=== PATIENT | female | born 1960 | race African-American/Black ===

== ENCOUNTER 2017-11-26 15:19 | Inpatient (IN) | payer MEDICARE, MEDICAID ==
[~2017-11-26] VITALS: Ht 160 cm; Wt 57.2 kg
[~2017-11-26 15:19] MED LIST: ALTACE; FOLIC ACID; HYDROXYUREA; VIT B12; [UNRECOGNIZED DRUG - OTHER]; [UNRECOGNIZED DRUG - OTHER]
[2017-11-26] MEDS ORDERED: ONDANSETRON HCL 4MG/2ML VIAL IV STA (15:59)
[2017-11-26] MEDS ORDERED: SODIUM CHLORIDE 0.9% 1,000 ML IV ONE (15:59)
[2017-11-26] MEDS ORDERED: MORPHINE SULFATE 4 MG/ML CPJ (NOT FOR IM USE) IV STA (15:59)
[2017-11-26] MEDS ORDERED: METOPROLOL TARTRATE 5MG/5ML VIAL IV ONE ×2 (16:45→17:30)
[2017-11-26] MEDS ORDERED: MIDAZOLAM HCL 2 MG/2 ML VIAL IV ONE (17:00)
[2017-11-26 17:09] LABS: CHLORIDE 107 mEq/L (98-107)
[2017-11-26 17:10] LABS: INR 1.2; PROTHROMBIN TIME 12.1 sec (9.4-11.6)
[2017-11-26 17:17] LABS: CREATINE KINASE 82 IU/L (26-192)
[2017-11-26 17:19] LABS: CREATINE KINASE MB FRACTION 0.6 ng/mL (0.5-3.6)
[2017-11-26 17:22] LABS: HEMATOCRIT. 21.6 % (36.0-48.0); HEMOGLOBIN. 7.6 g/dL (12.0-16.0); MEAN CORPUSCULAR HEMOGLOBIN 36.2 pg (28.0-32.0); MEAN PLATELET VOLUME 7.6 fl (7.4-10.4); PLATELET 252 x1000/uL (130-400); RED CELL DISTRIBUTION WIDTH 23.1 % (11.6-14.6)
[2017-11-26] MEDS ORDERED: METOPROLOL TARTRATE 50MG TABLET PO ONE (17:30)
[2017-11-26 17:44] LABS: NUCLEATED RED BLOOD CELLS 18 /100 WBC; PLATELET ESTIMATE NORMAL
[2017-11-26] MEDS ORDERED: FUROSEMIDE 40MG/4ML VIAL IVP ONE (18:00)
[2017-11-26] MEDS ORDERED: SODIUM CHLORIDE 0.9% 1,000 ML IV SCH (18:21)
[2017-11-26] MEDS ORDERED: MORPHINE SULFATE 2 MG/ML CPJ (NOT FOR IM USE) IV PRN ×2 (18:30→19:00)
[2017-11-26 19:42] LABS: VITAMIN B12 SERUM 885 pg/mL (211-911)
[2017-11-26 19:43] LABS: FOLIC ACID (FOLATE) SERUM > 20.00 ng/mL (>5.38)
[2017-11-26] MEDS: MORPHINE SULFATE 4 MG/ML CPJ (NOT FOR IM USE) IV PRN ×2 (21:07→23:54)
[2017-11-26 23:34] LABS: CREATINE KINASE MB FRACTION 0.6 ng/mL (0.5-3.6)
[2017-11-27] VITALS (15 sets, daily range): BP systolic 123–156; BP diastolic 60–98
[2017-11-27] MEDS ORDERED: NITROGLYCERIN 0.4MG TABLET SL SL PRN (00:14)
[2017-11-27] MEDS ORDERED: ZOLPIDEM TARTRATE 5MG TABLET PO PRN (00:23)
[2017-11-27] MEDS ORDERED: ONDANSETRON HCL 4MG/2ML VIAL IV PRN (00:24)
[2017-11-27] MEDS ORDERED: ACETAMINOPHEN 325MG TABLET PO PRN (00:24)
[2017-11-27] MEDS ORDERED: IPRATROPIUM/ALBUTEROL 0.5-3(2.5)MG/3ML NEB INH PRN (00:25)
[2017-11-27] MEDS ORDERED: LORAZEPAM 0.5MG TABLET PO PRN (00:25)
[2017-11-27] MEDS ORDERED: DIPHENHYDRAMINE 50MG/ML VIAL IV PRN (00:25)
[2017-11-27] MEDS ORDERED: NA PHOS,M-B/NA PHOS,DI-BA ENEMA 118ML PR PRN (00:25)
[2017-11-27] MEDS ORDERED: GUAIFENESIN 200MG/10ML SUGAR FREE UDC PO PRN (00:25)
[2017-11-27] MEDS: DILTIAZEM HCL 60MG TABLET PO SCH ×5 (00:54→23:34)
[2017-11-27] MEDS: ENOXAPARIN 60MG/0.6ML SYR SUBCUT SCH ×2 (00:55→12:48)
[2017-11-27] MEDS: MORPHINE SULFATE 4 MG/ML CPJ (NOT FOR IM USE) IV PRN ×8 (03:51→23:34)
[2017-11-27] MEDS ORDERED: RAMI10CA19 PO (04:03)
[2017-11-27] MEDS ORDERED: APIX5TAB PO (04:03)
[2017-11-27] MEDS ORDERED: [UNRECOGNIZED DRUG - OTHER] (04:03)
[2017-11-27] MEDS ORDERED: FOLI-43 PO (04:03)
[2017-11-27] MEDS ORDERED: FERR325T6 PO (04:03)
[2017-11-27] MEDS ORDERED: HYDR4TAB4 PO (04:03)
[2017-11-27] MEDS ORDERED: METO25TA6 PO (04:03)
[2017-11-27] MEDS: TRAMADOL 50MG TABLET PO PRN (07:08)
[2017-11-27 08:05] LABS: CREATINE KINASE MB FRACTION 0.9 ng/mL (0.5-3.6)
[2017-11-27] MEDS: PANTOPRAZOLE SODIUM 40 MG/VIAL IV SCH (09:02)
[2017-11-27] MEDS: ASPIRIN 325MG EC TABLET PO SCH (09:03)
[2017-11-27] MEDS: FOLIC ACID/VITAMIN B COMP W-C TABLET PO SCH (09:03)
[2017-11-27] MEDS: METOPROLOL TARTRATE 25MG TABLET PO SCH ×2 (09:04→20:35)
[2017-11-27 10:38] LABS: CLARITY URINE CLEAR (CLEAR); COLOR URINE DARK YELLOW (YELLOW); KETONES URINE NEGATIVE (NEGATIVE); LEUKOCYTE ESTERASE URINE NEGATIVE (NEGATIVE); NITRITE URINE NEGATIVE (NEGATIVE); OCCULT BLOOD URINE 2+ (NEGATIVE); PH URINE 5.5 (4.5-8.0); PROTEIN URINE 2+ (NEGATIVE); SPECIFIC GRAVITY URINE 1.014 (1.005-1.030)
[2017-11-27 11:14] LABS: *AMPHETAMINES SCREEN URINE NEGATIVE (NEGATIVE); *BARBITURATES SCREEN URINE NEGATIVE (NEGATIVE); *BENZODIAZEPINES SCREEN URINE PRESUMTIVE POSITIVE (NEGATIVE); *COCAINE SCREEN URINE NEGATIVE (NEGATIVE); CANNABINOID URINE SCREEN NEGATIVE (NEGATIVE); METHADONE URINE SCREEN NEGATIVE (NEGATIVE); OPIATES URINE SCREEN PRESUMTIVE POSITIVE (NEGATIVE); PHENCYCLIDINE URINE SCREEN NEGATIVE (NEGATIVE)
[2017-11-27 11:16] LABS: TOTAL IRON BINDING CAPACITY 201 ug/dL (250-450)
[2017-11-27] MEDS: LOSARTAN POTASSIUM 25 MG TABLET PO SCH ×2 (11:50→20:35)
[2017-11-27] MEDS: FUROSEMIDE 40MG/4ML VIAL IVP SCH ×2 (11:51→17:15)
[2017-11-27] MEDS: SODIUM CHLORIDE 0.9% 1,000 ML IV SCH (12:44)
[2017-11-27 12:51] LABS: MEAN CORPUSCULAR HEMOGLOBIN 36.9 pg (28.0-32.0); MEAN PLATELET VOLUME 8.1 fl (7.4-10.4); PLATELET 188 x1000/uL (130-400); RED BLOOD CELL COUNT 1.73 mill/uL (4.2-5.4); RED CELL DISTRIBUTION WIDTH 23.2 % (11.6-14.6)
[2017-11-27 13:06] LABS: CHLORIDE 105 mEq/L (98-107)
[2017-11-27 13:08] LABS: HEMATOCRIT. 17.8 % (36.0-48.0); HEMOGLOBIN. 6.4 g/dL (12.0-16.0)
[2017-11-27 14:03] LABS: NUCLEATED RED BLOOD CELLS 21 /100 WBC; PLATELET ESTIMATE NORMAL
[2017-11-28] VITALS (13 sets, daily range): BP systolic 121–160; BP diastolic 66–82
[2017-11-28] MEDS: ENOXAPARIN 60MG/0.6ML SYR SUBCUT SCH ×2 (01:06→12:12)
[2017-11-28] MEDS: MORPHINE SULFATE 4 MG/ML CPJ (NOT FOR IM USE) IV PRN ×6 (03:28→20:29)
[2017-11-28 06:32] LABS: HEMATOCRIT. 23.2 % (36.0-48.0); HEMOGLOBIN. 8.2 g/dL (12.0-16.0); MEAN CORPUSCULAR HEMOGLOBIN 34.8 pg (28.0-32.0); MEAN CORPUSCULAR VOLUME 98.1 fL (81.0-99.0); MEAN PLATELET VOLUME 8.2 fl (7.4-10.4); PLATELET 189 x1000/uL (130-400); RED BLOOD CELL COUNT 2.37 mill/uL (4.2-5.4); RED CELL DISTRIBUTION WIDTH 20.5 % (11.6-14.6)
[2017-11-28] MEDS: DILTIAZEM HCL 60MG TABLET PO SCH ×3 (06:46→18:10)
[2017-11-28 07:06] LABS: CHLORIDE 105 mEq/L (98-107)
[2017-11-28] MEDS: FUROSEMIDE 40MG/4ML VIAL IVP SCH ×2 (07:15→16:48)
[2017-11-28 07:18] LABS: CREATINE KINASE 87 IU/L (26-192); CREATINE KINASE MB FRACTION 0.7 ng/mL (0.5-3.6); LDL CHOLESTEROL 34 mg/dL (5-100)
[2017-11-28 07:20] LABS: HDL CHOLESTEROL 31 mg/dL (40-59)
[2017-11-28] MEDS: SODIUM CHLORIDE 0.9% 1,000 ML IV SCH (08:15)
[2017-11-28] MEDS: PANTOPRAZOLE SODIUM 40 MG/VIAL IV SCH (09:35)
[2017-11-28] MEDS: FOLIC ACID/VITAMIN B COMP W-C TABLET PO SCH (09:35)
[2017-11-28] MEDS: ASPIRIN 325MG EC TABLET PO SCH (09:37)
[2017-11-28] MEDS: LOSARTAN POTASSIUM 25 MG TABLET PO SCH ×2 (09:38→20:29)
[2017-11-28] MEDS: METOPROLOL TARTRATE 25MG TABLET PO SCH ×2 (09:42→20:30)
[2017-11-28 10:27] LABS: NUCLEATED RED BLOOD CELLS 23 /100 WBC; PLATELET ESTIMATE NORMAL
[2017-11-28] MEDS ORDERED: CLONIDINE 0.1MG TABLET PO PRN (15:15)
[2017-11-28] MEDS ORDERED: CLONIDINE 0.2MG TABLET PO PRN (15:15)
[2017-11-28] MEDS: TRAMADOL 50MG TABLET PO PRN (16:05)
[2017-11-29] VITALS (12 sets, daily range): BP systolic 107–149; BP diastolic 62–85
[2017-11-29] MEDS: MORPHINE SULFATE 4 MG/ML CPJ (NOT FOR IM USE) IV PRN ×6 (01:10→22:31)
[2017-11-29] MEDS: DILTIAZEM HCL 60MG TABLET PO SCH ×5 (01:16→23:21)
[2017-11-29] MEDS: ENOXAPARIN 60MG/0.6ML SYR SUBCUT SCH ×2 (01:18→13:40)
[2017-11-29] MEDS: SODIUM CHLORIDE 0.9% 1,000 ML IV SCH ×2 (06:31→23:23)
[2017-11-29 07:46] LABS: CHLORIDE 102 mEq/L (98-107)
[2017-11-29 08:21] LABS: HEMATOCRIT. 22.3 % (36.0-48.0); HEMOGLOBIN. 7.9 g/dL (12.0-16.0); MEAN CORPUSCULAR HEMOGLOBIN 34.5 pg (28.0-32.0); MEAN CORPUSCULAR VOLUME 97.2 fL (81.0-99.0); MEAN PLATELET VOLUME 8.5 fl (7.4-10.4); PLATELET 137 x1000/uL (130-400); RED CELL DISTRIBUTION WIDTH 20.2 % (11.6-14.6)
[2017-11-29] MEDS: FUROSEMIDE 40MG/4ML VIAL IVP SCH ×2 (08:59→17:42)
[2017-11-29] MEDS: FOLIC ACID/VITAMIN B COMP W-C TABLET PO SCH (09:03)
[2017-11-29 09:04] LABS: NUCLEATED RED BLOOD CELLS 18 /100 WBC
[2017-11-29] MEDS: METOPROLOL TARTRATE 25MG TABLET PO SCH ×2 (09:04→20:54)
[2017-11-29] MEDS: ASPIRIN 325MG EC TABLET PO SCH (09:04)
[2017-11-29] MEDS: LOSARTAN POTASSIUM 25 MG TABLET PO SCH ×2 (09:04→20:54)
[2017-11-29] MEDS: FAMOTIDINE 20MG TABLET PO SCH ×2 (09:04→20:53)
[2017-11-29 09:06] LABS: PLATELET ESTIMATE NORMAL
[2017-11-29] MEDS: TRAMADOL 50MG TABLET PO PRN (13:43)
[2017-11-29] MEDS: DOCUSATE SODIUM 100MG CAPSULE PO PRN (17:43)
[2017-11-29] MEDS ORDERED: POTASSIUM CHLORIDE 20MEQ TABLET SR PO NR (22:00)
[2017-11-29] MEDS ORDERED: POTASSIUM CHLORIDE INJ 40 MEQ in SODIUM CHLORIDE 0.9% 250 ML IV NR (23:30)
[2017-11-30] VITALS (12 sets, daily range): BP systolic 102–132; BP diastolic 63–78
[2017-11-30] MEDS: ENOXAPARIN 60MG/0.6ML SYR SUBCUT SCH ×2 (00:03→13:57)
[2017-11-30] MEDS: MORPHINE SULFATE 4 MG/ML CPJ (NOT FOR IM USE) IV PRN ×4 (04:47→20:55)
[2017-11-30] MEDS: DILTIAZEM HCL 60MG TABLET PO SCH ×3 (05:15→18:11)
[2017-11-30] MEDS: FUROSEMIDE 40MG/4ML VIAL IVP SCH (07:15)
[2017-11-30] MEDS: LOSARTAN POTASSIUM 25 MG TABLET PO SCH ×2 (09:00→20:59)
[2017-11-30] MEDS: METOPROLOL TARTRATE 25MG TABLET PO SCH ×2 (09:24→20:55)
[2017-11-30] MEDS: FOLIC ACID/VITAMIN B COMP W-C TABLET PO SCH (09:24)
[2017-11-30] MEDS: ASPIRIN 325MG EC TABLET PO SCH (09:24)
[2017-11-30] MEDS: DOCUSATE SODIUM 100MG CAPSULE PO PRN (09:25)
[2017-11-30] MEDS: FAMOTIDINE 20MG TABLET PO SCH ×2 (09:25→20:55)
[2017-11-30 11:27] LABS: HEMATOCRIT. 22.5 % (36.0-48.0); MEAN CORPUSCULAR HEMOGLOBIN 34.6 pg (28.0-32.0); MEAN CORPUSCULAR VOLUME 97.8 fL (81.0-99.0); MEAN PLATELET VOLUME 8.3 fl (7.4-10.4); PLATELET 150 x1000/uL (130-400); RED CELL DISTRIBUTION WIDTH 19.8 % (11.6-14.6)
[2017-11-30] MEDS: TRAMADOL 50MG TABLET PO PRN (11:32)
[2017-11-30 11:37] LABS: CHLORIDE 106 mEq/L (98-107)
[2017-11-30 12:12] LABS: NUCLEATED RED BLOOD CELLS 56 /100 WBC
[2017-11-30 12:13] LABS: PLATELET ESTIMATE NORMAL
[2017-11-30] MEDS: FUROSEMIDE 40MG TABLET PO SCH (18:10)
[2017-11-30] MEDS ORDERED: POTASSIUM CHLORIDE 20MEQ/PACKET PO NR (18:15)
[2017-12-01] VITALS (9 sets, daily range): BP systolic 108–131; BP diastolic 61–87
[2017-12-01] MEDS: ENOXAPARIN 60MG/0.6ML SYR SUBCUT SCH ×2 (00:49→13:00)
[2017-12-01] MEDS: DILTIAZEM HCL 60MG TABLET PO SCH ×3 (00:49→12:00)
[2017-12-01] MEDS: MORPHINE SULFATE 4 MG/ML CPJ (NOT FOR IM USE) IV PRN (02:51)
[2017-12-01] MEDS: FUROSEMIDE 40MG TABLET PO SCH (06:44)
[2017-12-01] MEDS: FOLIC ACID/VITAMIN B COMP W-C TABLET PO SCH (08:45)
[2017-12-01] MEDS: TRAMADOL 50MG TABLET PO PRN (08:46)
[2017-12-01] MEDS: METOPROLOL TARTRATE 25MG TABLET PO SCH (08:47)
[2017-12-01] MEDS: ASPIRIN 325MG EC TABLET PO SCH (08:47)
[2017-12-01] MEDS: FAMOTIDINE 20MG TABLET PO SCH (08:47)
[2017-12-01] MEDS: LOSARTAN POTASSIUM 25 MG TABLET PO SCH (08:47)
[2017-12-03 13:11] LABS: HGB A2 4.1 % (1.8-3.2); HGB F 10.8 % (0.0-2.0); HGB S 85.1 % (0.0); HGB SOLUBILITY Positive (Negative)
== END 2017-12-01 15:23 | disposition home or self-care (01) | DRG 811 ==
LOC: ER 15:30 → EDBEDREQSVC 16:54 → EDBEDREQ 17:55 → SUPCPDRO 18:21 → ENRESERV 18:28 → 5EST 23:35
PROVIDERS: ADMIT Internal Medicine; ATTEND Internal Medicine
PROC: 30233N1 Transfusion of Nonautologous Red Blood Cells into Peripheral Vein, Percutaneous Approach (ICD-10-PCS; principal; 2017-11-27)
DX: D57.00 Hb-SS disease with crisis, unspecified (principal); I50.43 Acute on chronic combined systolic (congestive) and diastolic (congestive) heart failure; I48.2 Chronic atrial fibrillation; I42.9 Cardiomyopathy, unspecified; I69.354 Hemiplegia and hemiparesis following cerebral infarction affecting left non-dominant side; I11.0 Hypertensive heart disease with heart failure; I50.9 Heart failure, unspecified; E87.6 Hypokalemia; R73.9 Hyperglycemia, unspecified; D72.829 Elevated white blood cell count, unspecified; R74.0 Nonspecific elevation of levels of transaminase and lactic acid dehydrogenase [LDH]; Z90.49 Acquired absence of other specified parts of digestive tract
CPT/HCPCS: 36415; 36430; 71045; 80053; 80061; 80305; 81003; 82550; 82553; 82607; 82746; 83021; 83036; 83540; 83550; 83615; 83690; 83735; 83880; 84443; 84484; 85025; 85044; 85379; 85610; 85660; 85730; 86850; 86870; 86900; 86920; 87040; 87086; 93005; 93306; 93970; 96374; 96375; 97163; 97166; 99291; C1893; C9113; J1650; J1940; J2250; J2270; J2405; J3480; J3490; J7030; J7050; J7060; P9016

== ENCOUNTER 2018-05-09 13:18 | Inpatient (IN) | payer MEDICARE, MEDICAID ==
[~2018-05-09] VITALS: Ht 170.2 cm; Wt 59.9 kg
[~2018-05-09 13:18] MED LIST changes: +APIX5TAB PO; +FERR325T6 PO; +FOLI-43 PO; +HYDR4TAB4 PO; +METO25TA6 PO; +RAMI10CA19 PO; +[UNRECOGNIZED DRUG - OTHER]
[2018-05-09] MEDS ORDERED: SODIUM CHLORIDE 0.9% 1,000 ML IV ONE (14:07)
[2018-05-09] MEDS ORDERED: MORPHINE SULFATE 4 MG/ML CPJ (NOT FOR IM USE) IV STA (14:07)
[2018-05-09 15:31] LABS: CLARITY URINE CLEAR (CLEAR); COLOR URINE ORANGE (YELLOW); KETONES URINE NEGATIVE (NEGATIVE); LEUKOCYTE ESTERASE URINE 1+ (NEGATIVE); NITRITE URINE POSITIVE (NEGATIVE); OCCULT BLOOD URINE 1+ (NEGATIVE); PROTEIN URINE 2+ (NEGATIVE); SPECIFIC GRAVITY URINE 1.016 (1.005-1.030)
[2018-05-09 15:52] LABS: HEMOGLOBIN. 7.3 g/dL (12.0-16.0); MEAN CORPUSCULAR HEMOGLOBIN 36.5 pg (28.0-32.0); MEAN CORPUSCULAR VOLUME 101.6 fL (81.0-99.0); MEAN PLATELET VOLUME 7.6 fl (7.4-10.4); PLATELET 259 x1000/uL (130-400); RED BLOOD CELL COUNT 1.99 mill/uL (4.2-5.4); RED CELL DISTRIBUTION WIDTH 21.9 % (11.6-14.6)
[2018-05-09 15:58] LABS: CHLORIDE 108 mEq/L (98-107)
[2018-05-09 16:02] LABS: HEMATOCRIT. 20.2 % (36.0-48.0)
[2018-05-09 16:36] LABS: NUCLEATED RED BLOOD CELLS 11 /100 WBC
[2018-05-09 16:37] LABS: PLATELET ESTIMATE NORMAL
[2018-05-09] MEDS ORDERED: LEVOFLOXACIN 750MG PREMIX 150 ML IV ONE (17:00)
[2018-05-09] MEDS ORDERED: MORPHINE SULFATE 4 MG/ML CPJ (NOT FOR IM USE) IV ONE (17:45)
[2018-05-09 20:00] VITALS: BP 117/57
[2018-05-09 20:30] VITALS: BP 117/57
[2018-05-09] MEDS ORDERED: ZOLPIDEM TARTRATE 5MG TABLET PO PRN (21:45)
[2018-05-09] MEDS: ACETAMINOPHEN 650MG/20.3ML UDC PO PRN (22:28)
[2018-05-09] MEDS: MORPHINE SULFATE 4 MG/ML CPJ (NOT FOR IM USE) IV PRN (22:28)
[2018-05-09] MEDS: SODIUM CHLORIDE 0.9% 1,000 ML IV SCH (22:28)
[2018-05-10] VITALS (8 sets, daily range): BP systolic 99–136; BP diastolic 53–98
[2018-05-10 07:31] LABS: CHLORIDE 110 mEq/L (98-107)
[2018-05-10] MEDS: MORPHINE SULFATE 4 MG/ML CPJ (NOT FOR IM USE) IV PRN ×3 (08:15→20:10)
[2018-05-10 08:42] LABS: MEAN CORPUSCULAR HEMOGLOBIN 36.2 pg (28.0-32.0); MEAN PLATELET VOLUME 7.8 fl (7.4-10.4); PLATELET 245 x1000/uL (130-400); RED BLOOD CELL COUNT 1.93 mill/uL (4.2-5.4); RED CELL DISTRIBUTION WIDTH 21.8 % (11.6-14.6)
[2018-05-10 08:52] LABS: HEMATOCRIT. 19.3 % (36.0-48.0)
[2018-05-10] MEDS: ENOXAPARIN 40MG/0.4ML SYR SUBCUT SCH (09:00)
[2018-05-10 09:16] LABS: TOTAL IRON BINDING CAPACITY 180 ug/dL (250-450)
[2018-05-10] MEDS: PANTOPRAZOLE 40MG DR TABLET PO SCH (09:50)
[2018-05-10] MEDS: ACETAMINOPHEN 650MG/20.3ML UDC PO PRN (09:50)
[2018-05-10] MEDS: FOLIC ACID 1MG TABLET PO SCH (09:50)
[2018-05-10] MEDS: METOPROLOL TARTRATE 25MG TABLET PO SCH ×2 (09:50→20:10)
[2018-05-10] MEDS ORDERED: LIDOCAINE HCL 1% 10 MG/ML 10ML VIAL ONE (10:03)
[2018-05-10] MEDS: SODIUM CHLORIDE 0.9% 1,000 ML IV SCH (17:36)
[2018-05-10 22:14] LABS: NUCLEATED RED BLOOD CELLS 8 /100 WBC; PLATELET ESTIMATE NORMAL
[2018-05-11] VITALS (9 sets, daily range): BP systolic 118–137; BP diastolic 61–86
[2018-05-11] MEDS: MORPHINE SULFATE 4 MG/ML CPJ (NOT FOR IM USE) IV PRN ×2 (06:32→20:43)
[2018-05-11] MEDS: METOPROLOL TARTRATE 25MG TABLET PO SCH ×2 (08:23→20:42)
[2018-05-11] MEDS: FOLIC ACID 1MG TABLET PO SCH (08:23)
[2018-05-11] MEDS: PANTOPRAZOLE 40MG DR TABLET PO SCH (08:23)
[2018-05-11] MEDS: ENOXAPARIN 40MG/0.4ML SYR SUBCUT SCH (08:24)
[2018-05-11 08:26] LABS: CHLORIDE 109 mEq/L (98-107)
[2018-05-11 09:21] LABS: HEMOGLOBIN. 7.5 g/dL (12.0-16.0); MEAN CORPUSCULAR HEMOGLOBIN 35.6 pg (28.0-32.0); MEAN CORPUSCULAR VOLUME 98.1 fL (81.0-99.0); MEAN PLATELET VOLUME 8.2 fl (7.4-10.4); PLATELET 201 x1000/uL (130-400); RED BLOOD CELL COUNT 2.12 mill/uL (4.2-5.4)
[2018-05-11 09:26] LABS: HEMATOCRIT. 20.8 % (36.0-48.0)
[2018-05-11] MEDS: DOCUSATE SODIUM 250MG CAPSULE PO SCH (09:30)
[2018-05-11 11:00] LABS: NUCLEATED RED BLOOD CELLS 10 /100 WBC; PLATELET ESTIMATE NORMAL
[2018-05-11] MEDS: ACETAMINOPHEN 650MG/20.3ML UDC PO PRN (12:06)
[2018-05-11] MEDS: SODIUM CHLORIDE 0.9% 1,000 ML IV SCH (14:46)
[2018-05-11] MEDS: APIXABAN 5 MG TABLET PO SCH (17:33)
[2018-05-11 19:04] LABS: HEMATOCRIT 24.5 % (36.0-48.0); HEMOGLOBIN 8.8 g/dL (12.0-16.0)
[2018-05-11 19:05] LABS: INR 1.1; PROTHROMBIN TIME 11.4 sec (9.1-11.1)
[2018-05-12] VITALS: BP 111/75
[2018-05-12 04:00] VITALS: BP 154/90
[2018-05-12] MEDS: APIXABAN 5 MG TABLET PO SCH (05:18)
[2018-05-12] MEDS: MORPHINE SULFATE 4 MG/ML CPJ (NOT FOR IM USE) IV PRN (05:21)
[2018-05-12 07:19] VITALS: BP 129/72
[2018-05-12] MEDS: METOPROLOL TARTRATE 25MG TABLET PO SCH (08:48)
[2018-05-12] MEDS: FOLIC ACID 1MG TABLET PO SCH (08:48)
[2018-05-12] MEDS: PANTOPRAZOLE 40MG DR TABLET PO SCH (08:48)
[2018-05-12] MEDS: DOCUSATE SODIUM 250MG CAPSULE PO SCH (08:49)
[2018-05-12] MEDS: ACETAMINOPHEN 650MG/20.3ML UDC PO PRN (08:51)
[2018-05-12 12:13] VITALS: BP 145/85
[2018-05-12 12:40] VITALS: BP 145/85
== END 2018-05-12 14:31 | disposition home or self-care (01) | DRG 812 ==
LOC: ER 13:18 → 7WST 17:08 → EDBEDREQ 18:18 → EDBEDREQSVC 18:22 → ENRESERV 18:38
PROVIDERS: ADMIT Internal Medicine Geriatric Medicine; ATTEND Internal Medicine Geriatric Medicine
PROC: 02HV33Z Insertion of Infusion Device into Superior Vena Cava, Percutaneous Approach (ICD-10-PCS; principal; 2018-05-10)
PROC: B5181ZA Fluoroscopy of Superior Vena Cava using Low Osmolar Contrast, Guidance (ICD-10-PCS; 2018-05-10)
PROC: B548ZZA Ultrasonography of Superior Vena Cava, Guidance (ICD-10-PCS; 2018-05-10)
PROC: 30233N1 Transfusion of Nonautologous Red Blood Cells into Peripheral Vein, Percutaneous Approach (ICD-10-PCS; 2018-05-10)
DX: D57.00 Hb-SS disease with crisis, unspecified (principal); N39.0 Urinary tract infection, site not specified; R79.89 Other specified abnormal findings of blood chemistry; I48.91 Unspecified atrial fibrillation; I10 Essential (primary) hypertension; R74.0 Nonspecific elevation of levels of transaminase and lactic acid dehydrogenase [LDH]; Z96.649 Presence of unspecified artificial hip joint; Z86.73 Personal history of transient ischemic attack (TIA), and cerebral infarction without residual deficits; Z90.49 Acquired absence of other specified parts of digestive tract; Z79.01 Long term (current) use of anticoagulants; Z79.899 Other long term (current) drug therapy
CPT/HCPCS: 36415; 36569; 71045; 76937; 77001; 80048; 80053; 80076; 81003; 83540; 83550; 85014; 85018; 85025; 85044; 85049; 85384; 85610; 86850; 86870; 86900; 86920; 87086; 93005; 93970; 96365; 96366; 96375; 96376; 97116; 97162; 99285; C1725; J1956; J2270; J3490; J7030; J7040; P9016

== ENCOUNTER 2018-05-14 14:53 | Emergency (ER) | payer MEDICARE, MEDICAID ==
[~2018-05-14] VITALS: Ht 170.2 cm; Wt 60.0 kg
[~2018-05-14 14:53] MED LIST changes: -ALTACE; -FERR325T6 PO; -FOLIC ACID; -HYDROXYUREA; -RAMI10CA19 PO; -VIT B12; -[UNRECOGNIZED DRUG - OTHER]; -[UNRECOGNIZED DRUG - OTHER]; -[UNRECOGNIZED DRUG - OTHER]
[2018-05-14 21:40] VITALS: BP 145/89
== END 2018-05-14 21:41 | disposition home or self-care (01) ==
LOC: ER 14:53
DX: T82.838A Hemorrhage due to vascular prosthetic devices, implants and grafts, initial encounter (principal); D57.1 Sickle-cell disease without crisis; Z86.73 Personal history of transient ischemic attack (TIA), and cerebral infarction without residual deficits; Z98.890 Other specified postprocedural states; Y83.8 Other surgical procedures as the cause of abnormal reaction of the patient, or of later complication, without mention of misadventure at the time of the procedure; Y92.018 Other place in single-family (private) house as the place of occurrence of the external cause
CPT/HCPCS: 99282

== ENCOUNTER 2018-06-27 14:55 | Inpatient (IN) | payer MEDICARE, MEDICAID ==
[~2018-06-27] VITALS: Ht 170.2 cm; Wt 60.8 kg
[2018-06-27] MEDS: IPRATROPIUM/ALBUTEROL 0.5-3(2.5)MG/3ML NEB HHN SCH (01:20)
[2018-06-27 17:33] LABS: INR 1.3; PROTHROMBIN TIME 12.6 sec (9.1-11.1)
[2018-06-27 17:35] LABS: CHLORIDE 107 mEq/L (98-107)
[2018-06-27 17:41] LABS: BASOPHILS % 1.8 % (0.0-2.0); HAPTOGLOBIN <31.0 mg/dL (30-200); HEMATOCRIT. 22.5 % (36.0-48.0); LYMPHOCYTES % 22.6 % (20.0-50.0); MEAN CORPUSCULAR HEMOGLOBIN 35.3 pg (28.0-32.0); MEAN CORPUSCULAR VOLUME 99.9 fL (81.0-99.0); MONOCYTES % 11.8 % (2.0-8.0); NEUTROPHILS % 57.8 % (40.0-76.0); PLATELET 273 x1000/uL (130-400); RED BLOOD CELL COUNT 2.26 mill/uL (4.2-5.4); RED CELL DISTRIBUTION WIDTH 23.6 % (11.6-14.6)
[2018-06-27] MEDS ORDERED: MORPHINE SULFATE 4 MG/ML CPJ (NOT FOR IM USE) IV ONE (18:00)
[2018-06-27] MEDS ORDERED: ONDANSETRON HCL 4MG/2ML INJ IV ONE (18:00)
[2018-06-27 18:50] LABS: PLATELET ESTIMATE NORMAL
[2018-06-27 21:09] VITALS: BP 135/88
[2018-06-27] MEDS ORDERED: CLONIDINE 0.1MG TABLET PO PRN (21:45)
[2018-06-27] MEDS ORDERED: FOLIC ACID 1 MG, THIAMINE HCL 100 MG, MVI, ADULT NO.1 10 ML in DEXTROSE 5% WATER 1,000 ML IV SCH ×4 (21:45)
[2018-06-27] MEDS ORDERED: ACETAMINOPHEN 325MG TABLET PO PRN (21:45)
[2018-06-27] MEDS ORDERED: ONDANSETRON HCL 4MG/2ML INJ IV PRN (21:45)
[2018-06-27] MEDS ORDERED: HYDROMORPHONE HCL/PF 2MG/ML CPJ IV PRN (21:58)
[2018-06-27 22:05] LABS: CLARITY URINE CLOUDY (CLEAR); COLOR URINE DARK YELLOW (YELLOW); KETONES URINE NEGATIVE (NEGATIVE); LEUKOCYTE ESTERASE URINE TRACE (NEGATIVE); NITRITE URINE POSITIVE (NEGATIVE); OCCULT BLOOD URINE TRACE (NEGATIVE); PH URINE >=9.0 (4.5-8.0); PROTEIN URINE 1+ (NEGATIVE); SPECIFIC GRAVITY URINE 1.014 (1.005-1.030)
[2018-06-28] VITALS: BP 116/62
[2018-06-28] MEDS: IPRATROPIUM/ALBUTEROL 0.5-3(2.5)MG/3ML NEB HHN SCH ×6 (01:15→21:08)
[2018-06-28 01:22] LABS: CREATINE KINASE MB FRACTION < 1.0 ng/mL (0.5-3.6)
[2018-06-28] MEDS: [UNRECOGNIZED DRUG - REMARK] IV SCH ×4 (01:25)
[2018-06-28 06:00] VITALS: BP 119/65
[2018-06-28] MEDS: METOPROLOL TARTRATE 50MG TABLET PO SCH ×2 (06:58→21:03)
[2018-06-28 07:04] LABS: CHLORIDE 104 mEq/L (98-107)
[2018-06-28 07:15] LABS: BASOPHILS % 0.9 % (0.0-2.0); CREATINE KINASE MB FRACTION 1.1 ng/mL (0.5-3.6); EOSINOPHILS % 1.3 % (0.0-5.0); HEMATOCRIT. 22.7 % (36.0-48.0); HEMOGLOBIN. 8.2 g/dL (12.0-16.0); LYMPHOCYTES % 19.4 % (20.0-50.0); MEAN CORPUSCULAR HEMOGLOBIN 35.6 pg (28.0-32.0); MEAN CORPUSCULAR VOLUME 98.8 fL (81.0-99.0); NEUTROPHILS % 65.4 % (40.0-76.0); PLATELET 261 x1000/uL (130-400); RED CELL DISTRIBUTION WIDTH 22.8 % (11.6-14.6)
[2018-06-28 08:00] VITALS: BP 156/97
[2018-06-28] MEDS: FUROSEMIDE 40MG/4ML VIAL IVP SCH (08:54)
[2018-06-28] MEDS: APIXABAN 5 MG TABLET PO SCH ×2 (08:54→16:48)
[2018-06-28] MEDS: FAMOTIDINE 20MG TABLET PO SCH ×2 (08:54→21:03)
[2018-06-28 10:10] LABS: BG BASE EXCESS 4.6 mmol/L (-2.0-2.0); BG CARBOXYHEMOGLOBIN 2.8 % (0.5-1.5); BG FRACTION INSPIRED OXYGEN 21; BG HCO3 ACT 29.7 mmol/L (22.0-26.0); BG METHEMOGLOBIN 0.8 % (0.0-1.5); BG OXYGEN SATURATION 85.5 % (92.0-98.5); BG OXYHEMOGLOBIN 82.4 % (94.0-97.0); BG PCO2 47.2 mmHg (35.0-45.0); BG PH 7.417 (7.350-7.450); BG PO2 57.1 mmHg (75.0-100.0); BG SAMPLE SITE RIGHT BRACHIAL; BG TOTAL HEMOGLOBIN 9.2 g/dL (12.0-18.0); BG VENT MODE ROOM AIR
[2018-06-28] MEDS: MORPHINE SULFATE 4 MG/ML CPJ (NOT FOR IM USE) IV PRN ×3 (11:19→21:13)
[2018-06-28 12:00] VITALS: BP 157/69
[2018-06-28] MEDS ORDERED: IOHEXOL-350 100 ML BOTTLE ONE (13:13)
[2018-06-28] MEDS: LEVOFLOXACIN 500MG PREMIX 100 ML IV SCH (13:16)
[2018-06-28 16:00] VITALS: BP 138/70
[2018-06-28 20:00] VITALS: BP 139/79
[2018-06-29] VITALS: BP 113/63
[2018-06-29] MEDS: IPRATROPIUM/ALBUTEROL 0.5-3(2.5)MG/3ML NEB HHN SCH ×6 (00:15→21:32)
[2018-06-29] MEDS: LEVOFLOXACIN 500MG PREMIX 100 ML IV SCH (02:48)
[2018-06-29] MEDS: [UNRECOGNIZED DRUG - REMARK] IV SCH ×4 (02:59)
[2018-06-29 04:00] VITALS: BP 114/59
[2018-06-29 06:41] LABS: HEMATOCRIT. 23.7 % (36.0-48.0); HEMOGLOBIN. 8.3 g/dL (12.0-16.0); MEAN CORPUSCULAR HEMOGLOBIN 34.9 pg (28.0-32.0); MEAN CORPUSCULAR VOLUME 99.2 fL (81.0-99.0); MEAN PLATELET VOLUME 8.1 fl (7.4-10.4); PLATELET 250 x1000/uL (130-400); RED BLOOD CELL COUNT 2.39 mill/uL (4.2-5.4); RED CELL DISTRIBUTION WIDTH 22.1 % (11.6-14.6)
[2018-06-29 07:04] LABS: CHLORIDE 101 mEq/L (98-107)
[2018-06-29 08:00] VITALS: BP 124/73
[2018-06-29] MEDS ORDERED: DIGOXIN 500MCG/2ML AMP IV NR (08:15)
[2018-06-29] MEDS: FUROSEMIDE 40MG/4ML VIAL IVP SCH (08:17)
[2018-06-29] MEDS: FAMOTIDINE 20MG TABLET PO SCH ×2 (08:18→21:15)
[2018-06-29] MEDS: MORPHINE SULFATE 4 MG/ML CPJ (NOT FOR IM USE) IV PRN ×2 (08:18→16:38)
[2018-06-29] MEDS: METOPROLOL TARTRATE 50MG TABLET PO SCH ×2 (08:19→21:14)
[2018-06-29] MEDS: APIXABAN 5 MG TABLET PO SCH ×2 (08:19→16:38)
[2018-06-29] MEDS: POTASSIUM CHLORIDE 20MEQ TABLET SR PO SCH (09:50)
[2018-06-29 10:18] LABS: NUCLEATED RED BLOOD CELLS 1 /100 WBC; PLATELET ESTIMATE NORMAL
[2018-06-29] MEDS ORDERED: POTASSIUM CHLORIDE 20MEQ/PACKET PO NR (11:30)
[2018-06-29 12:47] VITALS: BP 93/51
[2018-06-29 16:00] VITALS: BP 127/55
[2018-06-29 20:00] VITALS: BP 120/74
[2018-06-30] VITALS: BP 109/57
[2018-06-30] MEDS: IPRATROPIUM/ALBUTEROL 0.5-3(2.5)MG/3ML NEB HHN SCH ×6 (01:09→22:20)
[2018-06-30 04:00] VITALS: BP 135/54
[2018-06-30 08:00] VITALS: BP 124/59
[2018-06-30] MEDS: FUROSEMIDE 40MG/4ML VIAL IVP SCH (08:31)
[2018-06-30] MEDS: POTASSIUM CHLORIDE 20MEQ TABLET SR PO SCH (08:31)
[2018-06-30] MEDS: METOPROLOL TARTRATE 50MG TABLET PO SCH ×2 (08:32→20:57)
[2018-06-30] MEDS: APIXABAN 5 MG TABLET PO SCH ×2 (08:33→17:01)
[2018-06-30] MEDS: FAMOTIDINE 20MG TABLET PO SCH ×2 (08:33→20:56)
[2018-06-30] MEDS: MORPHINE SULFATE 4 MG/ML CPJ (NOT FOR IM USE) IV PRN ×2 (08:38→15:39)
[2018-06-30 11:45] VITALS: BP 116/69
[2018-06-30 12:13] LABS: HEMATOCRIT. 27.4 % (36.0-48.0); HEMOGLOBIN. 9.6 g/dL (12.0-16.0); MEAN CORPUSCULAR HEMOGLOBIN 35.2 pg (28.0-32.0); MEAN CORPUSCULAR VOLUME 99.9 fL (81.0-99.0); MEAN PLATELET VOLUME 8.3 fl (7.4-10.4); PLATELET 292 x1000/uL (130-400); RED BLOOD CELL COUNT 2.74 mill/uL (4.2-5.4); RED CELL DISTRIBUTION WIDTH 22.4 % (11.6-14.6)
[2018-06-30 12:19] LABS: CHLORIDE 103 mEq/L (98-107)
[2018-06-30 12:46] LABS: NUCLEATED RED BLOOD CELLS 3 /100 WBC
[2018-06-30 12:47] LABS: PLATELET ESTIMATE NORMAL
[2018-06-30 15:59] VITALS: BP 115/70
[2018-06-30] MEDS ORDERED: LEVOFLOXACIN 500MG TABLET PO SCH (16:00)
[2018-06-30 20:00] VITALS: BP 124/68
[2018-07-01] VITALS: BP 122/75
[2018-07-01] MEDS: IPRATROPIUM/ALBUTEROL 0.5-3(2.5)MG/3ML NEB HHN SCH ×4 (00:45→12:35)
[2018-07-01 04:00] VITALS: BP 119/66
[2018-07-01] MEDS: MORPHINE SULFATE 4 MG/ML CPJ (NOT FOR IM USE) IV PRN (07:37)
[2018-07-01 08:00] VITALS: BP 135/68
[2018-07-01] MEDS: POTASSIUM CHLORIDE 20MEQ TABLET SR PO SCH (08:18)
[2018-07-01] MEDS: APIXABAN 5 MG TABLET PO SCH (08:18)
[2018-07-01] MEDS: FAMOTIDINE 20MG TABLET PO SCH (08:18)
[2018-07-01] MEDS: METOPROLOL TARTRATE 50MG TABLET PO SCH (08:18)
[2018-07-01] MEDS: FUROSEMIDE 40MG/4ML VIAL IVP SCH (08:18)
[2018-07-01] MEDS ORDERED: LISINOPRIL 5MG TABLET PO SCH (09:00)
[2018-07-01 11:15] VITALS: BP 135/68
== END 2018-07-01 13:10 | disposition home health service (06) | DRG 291 ==
LOC: ER 17:12 → 8WST 19:20 → EDBEDREQ 19:20 → EDBEDREQTM 19:20 → ENRESERV 19:47
PROVIDERS: ADMIT Internal Medicine Geriatric Medicine; ATTEND Internal Medicine Geriatric Medicine
DX: I11.0 Hypertensive heart disease with heart failure (principal); D57.00 Hb-SS disease with crisis, unspecified; I48.92 Unspecified atrial flutter; I69.354 Hemiplegia and hemiparesis following cerebral infarction affecting left non-dominant side; I50.23 Acute on chronic systolic (congestive) heart failure; I42.0 Dilated cardiomyopathy; D57.1 Sickle-cell disease without crisis; R74.0 Nonspecific elevation of levels of transaminase and lactic acid dehydrogenase [LDH]; R73.9 Hyperglycemia, unspecified; D63.8 Anemia in other chronic diseases classified elsewhere; E78.00 Pure hypercholesterolemia, unspecified; I27.20 Pulmonary hypertension, unspecified; I48.2 Chronic atrial fibrillation; Z79.01 Long term (current) use of anticoagulants; Z79.899 Other long term (current) drug therapy; Z98.891 History of uterine scar from previous surgery; Z90.49 Acquired absence of other specified parts of digestive tract
CPT/HCPCS: 36415; 36600; 71045; 71275; 76700; 80048; 82375; 82553; 82805; 83010; 83540; 83550; 83615; 83735; 83880; 84443; 84484; 85044; 93005; 93306; 93970; 96374; 96375; 99285; C1893; J1160; J1170; J1940; J1956; J2270; J2405; J3411; J3490; J7050; J7070; J7620; Q9967

== ENCOUNTER 2018-09-27 18:22 | Inpatient (IN) | payer MEDICARE, MEDICAID ==
[~2018-09-27] VITALS: Ht 170.2 cm; Wt 58.5 kg
[~2018-09-27 18:22] MED LIST changes: +ATORVASTATIN; -METO25TA6 PO; +METOPROLOL; +MORP15TA54 PO
[2018-09-27] MEDS ORDERED: MORPHINE SULFATE 4 MG/ML CPJ (NOT FOR IM USE) IV STA (19:03)
[2018-09-27] MEDS ORDERED: NITROGLYCERIN 0.4MG TABLET SL SL PRN (19:15)
[2018-09-27] MEDS ORDERED: ASPIRIN 81MG TABLET PO ONE (19:15)
[2018-09-27 21:54] LABS: CHLORIDE 109 mEq/L (98-107)
[2018-09-27 22:05] LABS: HEMOGLOBIN. 8.1 g/dL (12.0-16.0); MEAN CORPUSCULAR HEMOGLOBIN 35.8 pg (28.0-32.0); MEAN CORPUSCULAR VOLUME 101.3 fL (81.0-99.0); MEAN PLATELET VOLUME 7.9 fl (7.4-10.4); PLATELET 333 x1000/uL (130-400); RED BLOOD CELL COUNT 2.27 mill/uL (4.2-5.4); RED CELL DISTRIBUTION WIDTH 25.7 % (11.6-14.6)
[2018-09-27 22:35] LABS: NUCLEATED RED BLOOD CELLS 14 /100 WBC; PLATELET ESTIMATE NORMAL
[2018-09-27] MEDS ORDERED: FUROSEMIDE 20MG/2ML VIAL IVP ONE (23:15)
[2018-09-27] MEDS ORDERED: HYDROCODONE/ACETAMINOPHEN 5/325MG TABLET PO ONE (23:15)
[2018-09-27] MEDS ORDERED: MORPHINE SULFATE 4 MG/ML CPJ (NOT FOR IM USE) IV ONE (23:45)
[2018-09-28] VITALS (7 sets, daily range): BP systolic 108–136; BP diastolic 66–88
[2018-09-28] MEDS ORDERED: METO-539 PO (03:16)
[2018-09-28] MEDS ORDERED: OMEP20TA15 PO (03:16)
[2018-09-28] MEDS ORDERED: SACU1TAB PO (03:16)
[2018-09-28] MEDS: OMEPRAZOLE 20MG CAPSULE EXTENDED RELEASE PO SCH (06:53)
[2018-09-28] MEDS: APIXABAN 5 MG TABLET PO SCH ×2 (09:03→17:23)
[2018-09-28] MEDS: FUROSEMIDE 20MG/2ML VIAL IVP SCH (09:03)
[2018-09-28] MEDS: POTASSIUM CHLORIDE 10MEQ TABLET SR PO SCH (09:05)
[2018-09-28] MEDS: FOLIC ACID 1MG TABLET PO SCH (09:05)
[2018-09-28] MEDS: METOPROLOL TARTRATE 50MG TABLET PO SCH ×2 (09:05→20:37)
[2018-09-28] MEDS ORDERED: HYDROMORPHONE HCL 2MG TABLET PO SCH (10:00)
[2018-09-28 11:03] LABS: CHLORIDE 106 mEq/L (98-107)
[2018-09-28 11:10] LABS: TOTAL IRON BINDING CAPACITY 221 ug/dL (250-450)
[2018-09-28 11:42] LABS: HEMATOCRIT. 21.3 % (36.0-48.0); HEMOGLOBIN. 7.7 g/dL (12.0-16.0); MEAN CORPUSCULAR HEMOGLOBIN 35.9 pg (28.0-32.0); MEAN CORPUSCULAR VOLUME 99.4 fL (81.0-99.0); PLATELET 317 x1000/uL (130-400); RED BLOOD CELL COUNT 2.14 mill/uL (4.2-5.4); RED CELL DISTRIBUTION WIDTH 26.5 % (11.6-14.6)
[2018-09-28] MEDS: IPRATROPIUM/ALBUTEROL 0.5-3(2.5)MG/3ML NEB HHN SCH ×4 (12:04→23:10)
[2018-09-28 13:08] LABS: NUCLEATED RED BLOOD CELLS 19 /100 WBC
[2018-09-28 13:09] LABS: PLATELET ESTIMATE NORMAL
[2018-09-28] MEDS: SACUBITRIL/VALSARTAN 24/26 TAB PO SCH ×2 (13:14→20:36)
[2018-09-28] MEDS ORDERED: MORPHINE SULFATE 15MG TABLET SR PO NR (16:45)
[2018-09-28] MEDS ORDERED: HYDROCODONE/ACETAMINOPHEN 5/325MG TABLET PO PRN (16:45)
[2018-09-29] VITALS: BP 101/50
[2018-09-29] MEDS: IPRATROPIUM/ALBUTEROL 0.5-3(2.5)MG/3ML NEB HHN SCH ×5 (03:31→21:33)
[2018-09-29 04:00] VITALS: BP 95/54
[2018-09-29 06:23] LABS: HEMOGLOBIN. 7.5 g/dL (12.0-16.0); MEAN CORPUSCULAR HEMOGLOBIN 36.2 pg (28.0-32.0); MEAN CORPUSCULAR VOLUME 99.4 fL (81.0-99.0); MEAN PLATELET VOLUME 7.8 fl (7.4-10.4); PLATELET 303 x1000/uL (130-400); RED BLOOD CELL COUNT 2.07 mill/uL (4.2-5.4); RED CELL DISTRIBUTION WIDTH 26.1 % (11.6-14.6)
[2018-09-29 06:27] LABS: CHLORIDE 107 mEq/L (98-107)
[2018-09-29] MEDS: OMEPRAZOLE 20MG CAPSULE EXTENDED RELEASE PO SCH (06:55)
[2018-09-29 07:50] LABS: HEMATOCRIT. 20.5 % (36.0-48.0)
[2018-09-29 08:00] VITALS: BP 111/65
[2018-09-29] MEDS: FOLIC ACID 1MG TABLET PO SCH (09:13)
[2018-09-29] MEDS: POTASSIUM CHLORIDE 10MEQ TABLET SR PO SCH (09:13)
[2018-09-29] MEDS: SACUBITRIL/VALSARTAN 24/26 TAB PO SCH ×2 (09:13→20:40)
[2018-09-29] MEDS: MORPHINE SULFATE 15MG TABLET SR PO SCH (09:15)
[2018-09-29] MEDS: FUROSEMIDE 20MG/2ML VIAL IVP SCH (09:16)
[2018-09-29] MEDS: METOPROLOL TARTRATE 50MG TABLET PO SCH ×2 (09:16→20:40)
[2018-09-29] MEDS: APIXABAN 5 MG TABLET PO SCH ×2 (09:29→16:57)
[2018-09-29 12:00] VITALS: BP 106/73
[2018-09-29 14:25] LABS: NUCLEATED RED BLOOD CELLS 21 /100 WBC
[2018-09-29 14:27] LABS: PLATELET ESTIMATE NORMAL
[2018-09-29 16:00] VITALS: BP 115/69
[2018-09-29 20:00] VITALS: BP 126/60
[2018-09-29] MEDS ORDERED: MORPHINE SULFATE 15MG TABLET SR PO SCH (20:00)
[2018-09-29] MEDS ORDERED: ACETAMINOPHEN 325MG TABLET PO PRN (23:00)
[2018-09-30] VITALS (8 sets, daily range): BP systolic 92–149; BP diastolic 44–93
[2018-09-30] MEDS: IPRATROPIUM/ALBUTEROL 0.5-3(2.5)MG/3ML NEB HHN SCH ×3 (02:10→12:45)
[2018-09-30] MEDS: OMEPRAZOLE 20MG CAPSULE EXTENDED RELEASE PO SCH (05:49)
[2018-09-30 06:27] LABS: INR 1.2; PROTHROMBIN TIME 11.9 sec (9.1-11.1)
[2018-09-30 06:47] LABS: CHLORIDE 108 mEq/L (98-107)
[2018-09-30 08:15] LABS: HEMATOCRIT. 23.9 % (36.0-48.0); HEMOGLOBIN. 8.4 g/dL (12.0-16.0); MEAN CORPUSCULAR HEMOGLOBIN 35.5 pg (28.0-32.0); MEAN CORPUSCULAR VOLUME 100.4 fL (81.0-99.0); MEAN PLATELET VOLUME 7.8 fl (7.4-10.4); PLATELET 314 x1000/uL (130-400); RED BLOOD CELL COUNT 2.38 mill/uL (4.2-5.4); RED CELL DISTRIBUTION WIDTH 22.5 % (11.6-14.6)
[2018-09-30] MEDS ORDERED: FUROSEMIDE 20MG/2ML VIAL IVP SCH (09:00)
[2018-09-30] MEDS: APIXABAN 5 MG TABLET PO SCH (09:16)
[2018-09-30] MEDS: POTASSIUM CHLORIDE 10MEQ TABLET SR PO SCH (09:16)
[2018-09-30] MEDS: METOPROLOL TARTRATE 50MG TABLET PO SCH (09:16)
[2018-09-30] MEDS: SACUBITRIL/VALSARTAN 24/26 TAB PO SCH (09:17)
[2018-09-30] MEDS: FOLIC ACID 1MG TABLET PO SCH (09:17)
[2018-09-30] MEDS: MORPHINE SULFATE 15MG TABLET SR PO SCH (09:17)
[2018-09-30 09:39] LABS: BG BASE EXCESS 1.8 mmol/L (-2.0-2.0); BG CARBOXYHEMOGLOBIN 2.8 % (0.5-1.5); BG DEOXYHEMOGLOBIN 9.7 % (0.0-5.0); BG FRACTION INSPIRED OXYGEN 21; BG HCO3 ACT 26.5 mmol/L (22.0-26.0); BG METHEMOGLOBIN 0.6 % (0.0-1.5); BG OXYHEMOGLOBIN 86.9 % (94.0-97.0); BG PCO2 42.1 mmHg (35.0-45.0); BG PH 7.417 (7.350-7.450); BG PO2 76.4 mmHg (75.0-100.0); BG SAMPLE SITE RIGHT BRACHIAL; BG TOTAL HEMOGLOBIN 8.6 g/dL (12.0-18.0); BG VENT MODE ROOM AIR
[2018-09-30 11:54] LABS: NUCLEATED RED BLOOD CELLS 18 /100 WBC
[2018-09-30 11:55] LABS: PLATELET ESTIMATE NORMAL
[2018-09-30] MEDS ORDERED: LIDOCAINE HCL/PF 1% 2ML VIAL ONE (15:03)
[2018-09-30 15:12] LABS: CLARITY URINE CLEAR (CLEAR); COLOR URINE DARK YELLOW (YELLOW); KETONES URINE NEGATIVE (NEGATIVE); LEUKOCYTE ESTERASE URINE TRACE (NEGATIVE); NITRITE URINE NEGATIVE (NEGATIVE); OCCULT BLOOD URINE NEGATIVE (NEGATIVE); PH URINE 6.5 (4.5-8.0); PROTEIN URINE TRACE (NEGATIVE); SPECIFIC GRAVITY URINE 1.015 (1.005-1.030)
== END 2018-09-30 12:09 | disposition home or self-care (01) | DRG 811 ==
LOC: ER 18:22 → 5WST 22:42 → EDBEDREQTM 22:56 → EDBEDREQ 22:56 → ENRESERV 23:53
PROVIDERS: ADMIT Internal Medicine Geriatric Medicine; ATTEND Internal Medicine Geriatric Medicine
PROC: 30233N1 Transfusion of Nonautologous Red Blood Cells into Peripheral Vein, Percutaneous Approach (ICD-10-PCS; principal; 2018-09-30)
DX: D57.00 Hb-SS disease with crisis, unspecified (principal); I50.23 Acute on chronic systolic (congestive) heart failure; E44.0 Moderate protein-calorie malnutrition; I47.1 Supraventricular tachycardia; I48.0 Paroxysmal atrial fibrillation; I11.0 Hypertensive heart disease with heart failure; I08.1 Rheumatic disorders of both mitral and tricuspid valves; I27.20 Pulmonary hypertension, unspecified; R74.0 Nonspecific elevation of levels of transaminase and lactic acid dehydrogenase [LDH]; I48.2 Chronic atrial fibrillation; M81.0 Age-related osteoporosis without current pathological fracture; R09.02 Hypoxemia; Z79.01 Long term (current) use of anticoagulants; Z86.73 Personal history of transient ischemic attack (TIA), and cerebral infarction without residual deficits; Z68.20 Body mass index [BMI] 20.0-20.9, adult; Z79.899 Other long term (current) drug therapy; Z71.3 Dietary counseling and surveillance
CPT/HCPCS: 36415; 36600; 71045; 80048; 82375; 82805; 83540; 83550; 83880; 84484; 85007; 85027; 85044; 85384; 86850; 86870; 86900; 86920; 93005; 94640; 96374; 99285; J1940; J2270; J3490; J7050; J7620; P9016

== ENCOUNTER 2019-04-28 13:58 | Inpatient (IN) | payer MEDICARE, MEDICAID ==
[~2019-04-28] VITALS: Ht 170.2 cm; Wt 68.1 kg
[~2019-04-28 13:58] MED LIST changes: +METO-539 PO; -METOPROLOL; +OMEP20TA15 PO; +SACU1TAB PO
[2019-04-28] MEDS ORDERED: SODIUM CHLORIDE 0.9% 1,000 ML IV ONE (21:15)
[2019-04-28] MEDS ORDERED: MORPHINE SULFATE 4 MG/ML CPJ (NOT FOR IM USE) IV ONE (21:15)
[2019-04-28 21:45] LABS: MEAN CORPUSCULAR HEMOGLOBIN 35.5 pg (28.0-32.0); MEAN CORPUSCULAR VOLUME 96.5 fL (81.0-99.0); MEAN PLATELET VOLUME 7.8 fl (7.4-10.4); PLATELET 258 x1000/uL (130-400); RED BLOOD CELL COUNT 1.82 mill/uL (4.2-5.4); RED CELL DISTRIBUTION WIDTH 21.8 % (11.6-14.6)
[2019-04-28] MEDS ORDERED: MORPHINE SULFATE 2 MG/ML CPJ (NOT FOR IM USE) IV NR (21:45)
[2019-04-28 21:53] LABS: CHLORIDE 109 mEq/L (98-107)
[2019-04-28 21:58] LABS: HEMATOCRIT. 17.6 % (36.0-48.0); HEMOGLOBIN. 6.5 g/dL (12.0-16.0)
[2019-04-28 22:14] LABS: NUCLEATED RED BLOOD CELLS 1 /100 WBC; PLATELET ESTIMATE NORMAL
[2019-04-28] MEDS ORDERED: ONDANSETRON HCL 4MG/2ML INJ IV PRN (22:30)
[2019-04-28] MEDS ORDERED: CLONIDINE 0.1MG TABLET PO PRN (22:30)
[2019-04-28] MEDS ORDERED: ACETAMINOPHEN 325MG TABLET PO PRN (22:30)
[2019-04-28] MEDS ORDERED: GUAIFENESIN 200MG/10ML SUGAR FREE UDC PO PRN (22:30)
[2019-04-28 23:27] LABS: CLARITY URINE CLEAR (CLEAR); COLOR URINE YELLOW (YELLOW); KETONES URINE NEGATIVE (NEGATIVE); LEUKOCYTE ESTERASE URINE NEGATIVE (NEGATIVE); NITRITE URINE NEGATIVE (NEGATIVE); OCCULT BLOOD URINE TRACE (NEGATIVE); PROTEIN URINE 1+ (NEGATIVE); SPECIFIC GRAVITY URINE 1.011 (1.005-1.030)
[2019-04-29] VITALS (24 sets, daily range): BP systolic 97–133; BP diastolic 61–100
[2019-04-29] MEDS: HYDROMORPHONE HCL/PF 2MG/ML CPJ IV PRN ×2 (01:06→14:30)
[2019-04-29] MEDS: IPRATROPIUM/ALBUTEROL 0.5-3(2.5)MG/3ML NEB HHN SCH ×5 (04:57→20:23)
[2019-04-29] MEDS ORDERED: DIPHENHYDRAMINE 25MG CAPSULE PO PRN (05:30)
[2019-04-29 07:24] LABS: MEAN CORPUSCULAR HEMOGLOBIN 35.2 pg (28.0-32.0); MEAN CORPUSCULAR VOLUME 98.5 fL (81.0-99.0); PLATELET 261 x1000/uL (130-400); RED BLOOD CELL COUNT 1.74 mill/uL (4.2-5.4); RED CELL DISTRIBUTION WIDTH 20.9 % (11.6-14.6)
[2019-04-29 07:27] LABS: CHLORIDE 109 mEq/L (98-107)
[2019-04-29 07:52] LABS: CREATINE KINASE MB FRACTION < 1.0 ng/mL (0.5-3.6); HEMATOCRIT. 17.1 % (36.0-48.0); HEMOGLOBIN. 6.1 g/dL (12.0-16.0)
[2019-04-29] MEDS: OMEPRAZOLE 20MG CAPSULE EXTENDED RELEASE PO SCH ×2 (07:58→08:00)
[2019-04-29] MEDS: FOLIC ACID 1MG TABLET PO SCH (07:59)
[2019-04-29] MEDS: APIXABAN 5 MG TABLET PO SCH ×2 (07:59→18:22)
[2019-04-29] MEDS: DOCUSATE SODIUM 250MG CAPSULE PO SCH (08:00)
[2019-04-29] MEDS: METOPROLOL TARTRATE 50MG TABLET PO SCH ×2 (08:00→20:57)
[2019-04-29] MEDS: SACUBITRIL/VALSARTAN 24/26 TAB PO SCH ×2 (10:08→18:22)
[2019-04-29 11:52] LABS: BG BASE EXCESS -0.7 mmol/L (-2.0-2.0); BG CARBOXYHEMOGLOBIN 4.1 % (0.5-1.5); BG DEOXYHEMOGLOBIN 11.4 % (0.0-5.0); BG FRACTION INSPIRED OXYGEN 21; BG METHEMOGLOBIN 0.1 % (0.0-1.5); BG OXYGEN SATURATION 88.1 % (92.0-98.5); BG OXYHEMOGLOBIN 84.4 % (94.0-97.0); BG PCO2 39.3 mmHg (35.0-45.0); BG PH 7.403 (7.350-7.450); BG PO2 68.5 mmHg (75.0-100.0); BG SAMPLE SITE RIGHT RADIAL; BG TOTAL HEMOGLOBIN 5.4 g/dL (12.0-18.0); BG VENT MODE ROOM AIR
[2019-04-29] MEDS ORDERED: LIDOCAINE HCL/PF 1% 2ML VIAL ONE (14:29)
[2019-04-29 17:15] LABS: NUCLEATED RED BLOOD CELLS 2 /100 WBC; PLATELET ESTIMATE NORMAL
[2019-04-29 18:08] LABS: CREATINE KINASE MB FRACTION < 1.0 ng/mL (0.5-3.6)
[2019-04-29] MEDS: MORPHINE SULFATE 15MG TABLET SR PO SCH (20:56)
[2019-04-30] VITALS (12 sets, daily range): BP systolic 101–139; BP diastolic 55–81
[2019-04-30] MEDS: IPRATROPIUM/ALBUTEROL 0.5-3(2.5)MG/3ML NEB HHN SCH ×4 (04:00→20:29)
[2019-04-30 07:33] LABS: HEMATOCRIT. 21.1 % (36.0-48.0); HEMOGLOBIN. 7.4 g/dL (12.0-16.0); MEAN CORPUSCULAR HEMOGLOBIN 33.4 pg (28.0-32.0); MEAN CORPUSCULAR VOLUME 94.4 fL (81.0-99.0); MEAN PLATELET VOLUME 8.1 fl (7.4-10.4); PLATELET 218 x1000/uL (130-400); RED BLOOD CELL COUNT 2.23 mill/uL (4.2-5.4); RED CELL DISTRIBUTION WIDTH 19.9 % (11.6-14.6)
[2019-04-30 07:37] LABS: CHLORIDE 107 mEq/L (98-107)
[2019-04-30] MEDS: HYDROMORPHONE HCL/PF 2MG/ML CPJ IV PRN ×2 (08:47→16:48)
[2019-04-30] MEDS: METOPROLOL TARTRATE 50MG TABLET PO SCH ×2 (08:48→20:43)
[2019-04-30] MEDS: FOLIC ACID 1MG TABLET PO SCH (08:48)
[2019-04-30] MEDS: APIXABAN 5 MG TABLET PO SCH ×2 (08:48→16:48)
[2019-04-30] MEDS: SACUBITRIL/VALSARTAN 24/26 TAB PO SCH ×2 (08:48→16:49)
[2019-04-30] MEDS: DOCUSATE SODIUM 250MG CAPSULE PO SCH (08:49)
[2019-04-30] MEDS: MORPHINE SULFATE 15MG TABLET SR PO SCH ×2 (08:54→20:42)
[2019-04-30 10:23] LABS: NUCLEATED RED BLOOD CELLS 3 /100 WBC; PLATELET ESTIMATE NORMAL
[2019-04-30] MEDS ORDERED: SODIUM CHLORIDE 0.9% 1,000 ML IV SCH (21:30)
[2019-05-01] VITALS (9 sets, daily range): BP systolic 97–132; BP diastolic 67–95
[2019-05-01] MEDS: IPRATROPIUM/ALBUTEROL 0.5-3(2.5)MG/3ML NEB HHN SCH ×4 (01:04→12:11)
[2019-05-01 06:24] LABS: CHLORIDE 106 mEq/L (98-107)
[2019-05-01] MEDS: SACUBITRIL/VALSARTAN 24/26 TAB PO SCH (08:15)
[2019-05-01] MEDS: METOPROLOL TARTRATE 50MG TABLET PO SCH (08:16)
[2019-05-01] MEDS: HYDROMORPHONE HCL/PF 2MG/ML CPJ IV PRN (08:17)
[2019-05-01 08:18] LABS: HEMATOCRIT. 23.7 % (36.0-48.0); HEMOGLOBIN. 8.4 g/dL (12.0-16.0); MEAN CORPUSCULAR HEMOGLOBIN 33.6 pg (28.0-32.0); MEAN CORPUSCULAR VOLUME 95.1 fL (81.0-99.0); MEAN PLATELET VOLUME 8.2 fl (7.4-10.4); PLATELET 236 x1000/uL (130-400); RED CELL DISTRIBUTION WIDTH 20.3 % (11.6-14.6)
[2019-05-01] MEDS: APIXABAN 5 MG TABLET PO SCH (08:24)
[2019-05-01] MEDS: FOLIC ACID 1MG TABLET PO SCH (08:25)
[2019-05-01] MEDS: DOCUSATE SODIUM 250MG CAPSULE PO SCH (08:26)
[2019-05-01] MEDS: MORPHINE SULFATE 15MG TABLET SR PO SCH (08:26)
[2019-05-01] MEDS ORDERED: FAMOTIDINE 20MG TABLET PO SCH (09:00)
[2019-05-01 14:06] LABS: NUCLEATED RED BLOOD CELLS 3 /100 WBC
[2019-05-01 14:07] LABS: PLATELET ESTIMATE NORMAL
== END 2019-05-01 17:46 | disposition home or self-care (01) | DRG 811 ==
LOC: ER 13:58 → EDBEDREQTM 22:16 → EDBEDREQ 22:16 → CANRESERV 22:59 → ENRESERV 22:59 → EDBEDREQSVC 23:07 → EDBEDREQTM 23:07 → ENRESERV 23:28 → 3WST 04-29 00:38
PROVIDERS: ADMIT Internal Medicine Geriatric Medicine; ATTEND Internal Medicine Geriatric Medicine
PROC: 30233N1 Transfusion of Nonautologous Red Blood Cells into Peripheral Vein, Percutaneous Approach (ICD-10-PCS; principal; 2019-04-29)
PROC: 02HV33Z Insertion of Infusion Device into Superior Vena Cava, Percutaneous Approach (ICD-10-PCS; 2019-04-29)
PROC: B548ZZA Ultrasonography of Superior Vena Cava, Guidance (ICD-10-PCS; 2019-04-29)
DX: D57.00 Hb-SS disease with crisis, unspecified (principal); I50.23 Acute on chronic systolic (congestive) heart failure; I38 Endocarditis, valve unspecified; M19.90 Unspecified osteoarthritis, unspecified site; I11.0 Hypertensive heart disease with heart failure; G89.4 Chronic pain syndrome; I48.2 Chronic atrial fibrillation; K29.70 Gastritis, unspecified, without bleeding; K59.09 Other constipation; D64.9 Anemia, unspecified; Z86.73 Personal history of transient ischemic attack (TIA), and cerebral infarction without residual deficits; Z98.891 History of uterine scar from previous surgery
CPT/HCPCS: 36415; 36573; 36600; 71045; 80048; 81003; 82375; 82553; 82805; 83540; 83550; 83880; 84443; 84484; 86850; 86870; 86900; 86920; 93005; 94640; 97162; 99285; C1725; J1170; J2270; J2405; J3490; J7030; J7620; P9016

== ENCOUNTER 2019-06-20 16:19 | Inpatient (IN) | payer MEDICARE, MEDICAID ==
[~2019-06-20] VITALS: Ht 165.1 cm; Wt 54.4 kg
[~2019-06-20 16:19] MED LIST changes: -ATORVASTATIN; -HYDR4TAB4 PO
[2019-06-20] MEDS ORDERED: MORPHINE SULFATE 4 MG/ML CPJ (NOT FOR IM USE) IV STA (18:14)
[2019-06-20] MEDS ORDERED: SODIUM CHLORIDE 0.9% 1,000 ML IV ONE (18:14)
[2019-06-20] MEDS ORDERED: ONDANSETRON HCL 4MG/2ML INJ IV STA (18:14)
[2019-06-20 18:35] LABS: MEAN CORPUSCULAR HEMOGLOBIN 34.6 pg (28.0-32.0); MEAN CORPUSCULAR VOLUME 96.6 fL (81.0-99.0); MEAN PLATELET VOLUME 8.3 fl (7.4-10.4); PLATELET 386 x1000/uL (130-400); RED BLOOD CELL COUNT 1.99 mill/uL (4.2-5.4); RED CELL DISTRIBUTION WIDTH 22.3 % (11.6-14.6)
[2019-06-20 18:41] LABS: CHLORIDE 105 mEq/L (98-107)
[2019-06-20 18:49] LABS: HEMOGLOBIN. 6.9 g/dL (12.0-16.0)
[2019-06-20] MEDS ORDERED: ONDANSETRON HCL 4MG/2ML INJ IV PRN (20:00)
[2019-06-20] MEDS ORDERED: DIPHENHYDRAMINE 50MG/ML VIAL IV PRN (20:00)
[2019-06-20] MEDS ORDERED: MAGNESIUM/ALUMINUM HYDROXIDE/SIMETHICONE 30ML UDC PO PRN (20:00)
[2019-06-20] MEDS ORDERED: CLONIDINE 0.1MG TABLET PO PRN (20:00)
[2019-06-20] MEDS ORDERED: DOCUSATE SODIUM 100MG CAPSULE PO PRN (20:00)
[2019-06-20] MEDS ORDERED: ENOXAPARIN 40MG/0.4ML SYR SUBCUT SCH (21:00)
[2019-06-20 22:02] LABS: NUCLEATED RED BLOOD CELLS 8 /100 WBC
[2019-06-20 22:03] LABS: PLATELET ESTIMATE NORMAL
[2019-06-20 23:01] LABS: CLARITY URINE CLEAR (CLEAR); COLOR URINE YELLOW (YELLOW); KETONES URINE NEGATIVE (NEGATIVE); LEUKOCYTE ESTERASE URINE NEGATIVE (NEGATIVE); NITRITE URINE NEGATIVE (NEGATIVE); OCCULT BLOOD URINE NEGATIVE (NEGATIVE); PROTEIN URINE NEGATIVE (NEGATIVE); SPECIFIC GRAVITY URINE 1.011 (1.005-1.030)
[2019-06-21] VITALS (11 sets, daily range): BP systolic 89–116; BP diastolic 36–63
[2019-06-21] MEDS ORDERED: lasix PO (00:03)
[2019-06-21] MEDS ORDERED: POTASSIUM PO (00:05)
[2019-06-21] MEDS: ACETAMINOPHEN 325MG TABLET PO PRN ×2 (00:30→21:31)
[2019-06-21] MEDS: SODIUM CHLORIDE 0.9% 1,000 ML IV SCH ×2 (01:02→17:56)
[2019-06-21] MEDS ORDERED: MEDICATION NOT ON FORMULARY EA (Sacubitril/Valsartan (Entresto 24 mg-26 mg Tablet) 1 EAC PO SCH (09:00)
[2019-06-21] MEDS ORDERED: ENOXAPARIN 40MG/0.4ML SYR SUBCUT SCH (09:00)
[2019-06-21] MEDS ORDERED: FUROSEMIDE 40MG/4ML VIAL IVP SCH (09:00)
[2019-06-21] MEDS ORDERED: SACUBITRIL/VALSARTAN 24/26 TAB PO SCH (09:00)
[2019-06-21] MEDS ORDERED: MORPHINE SULFATE 30MG TABLET SR PO SCH (09:00)
[2019-06-21] MEDS: DOCUSATE SODIUM 250MG CAPSULE PO SCH (09:00)
[2019-06-21] MEDS: METOPROLOL TARTRATE 50MG TABLET PO SCH ×2 (09:43→21:32)
[2019-06-21] MEDS: FOLIC ACID 1MG TABLET PO SCH (09:44)
[2019-06-21] MEDS: APIXABAN 5 MG TABLET PO SCH ×2 (09:44→21:32)
[2019-06-21 12:16] LABS: HEMATOCRIT 21.3 % (36.0-48.0); HEMOGLOBIN 7.5 g/dL (12.0-16.0)
[2019-06-21 12:18] LABS: HEMATOCRIT. 21.2 % (36.0-48.0); HEMOGLOBIN. 7.3 g/dL (12.0-16.0); MEAN CORPUSCULAR HEMOGLOBIN 32.4 pg (28.0-32.0); MEAN CORPUSCULAR VOLUME 93.8 fL (81.0-99.0); MEAN PLATELET VOLUME 7.8 fl (7.4-10.4); PLATELET 327 x1000/uL (130-400); RED BLOOD CELL COUNT 2.26 mill/uL (4.2-5.4); RED CELL DISTRIBUTION WIDTH 21.1 % (11.6-14.6)
[2019-06-21 12:31] LABS: CHLORIDE 106 mEq/L (98-107)
[2019-06-21 12:41] LABS: TOTAL IRON BINDING CAPACITY 222 ug/dL (250-450)
[2019-06-21] MEDS: MORPHINE SULFATE 15MG TABLET SR PO SCH (12:58)
[2019-06-21 13:20] LABS: FOLIC ACID (FOLATE) SERUM > 20.00 ng/mL (>5.38)
[2019-06-21 18:07] LABS: PLATELET ESTIMATE NORMAL
[2019-06-21] MEDS ORDERED: ZOLPIDEM TARTRATE 5MG TABLET PO PRN (21:00)
[2019-06-21] MEDS: HYDROCODONE/ACETAMINOPHEN 5/325MG TABLET PO PRN (21:40)
[2019-06-22] VITALS (11 sets, daily range): BP systolic 93–124; BP diastolic 38–68
[2019-06-22] MEDS: MORPHINE SULFATE 15MG TABLET SR PO SCH ×2 (01:14→13:00)
[2019-06-22] MEDS: SODIUM CHLORIDE 0.9% 1,000 ML IV SCH ×2 (03:12→17:09)
[2019-06-22 07:28] LABS: CHLORIDE 109 mEq/L (98-107)
[2019-06-22 08:35] LABS: MEAN CORPUSCULAR HEMOGLOBIN 31.8 pg (28.0-32.0); MEAN CORPUSCULAR VOLUME 93.1 fL (81.0-99.0); MEAN PLATELET VOLUME 7.9 fl (7.4-10.4); PLATELET 292 x1000/uL (130-400); RED BLOOD CELL COUNT 2.18 mill/uL (4.2-5.4); RED CELL DISTRIBUTION WIDTH 20.3 % (11.6-14.6)
[2019-06-22 08:39] LABS: HEMATOCRIT. 20.3 % (36.0-48.0)
[2019-06-22] MEDS ORDERED: POTASSIUM CHLORIDE 10MEQ TABLET SR PO SCH (09:00)
[2019-06-22] MEDS: FUROSEMIDE 20MG/2ML VIAL IVP SCH (09:45)
[2019-06-22] MEDS: POTASSIUM CHLORIDE 10MEQ TABLET SR PO SCH (09:45)
[2019-06-22] MEDS: FOLIC ACID 1MG TABLET PO SCH (09:46)
[2019-06-22] MEDS: APIXABAN 5 MG TABLET PO SCH ×2 (09:46→21:20)
[2019-06-22] MEDS: METOPROLOL TARTRATE 50MG TABLET PO SCH ×2 (09:47→21:21)
[2019-06-22] MEDS: DOCUSATE SODIUM 250MG CAPSULE PO SCH (09:48)
[2019-06-22] MEDS: HYDROCODONE/ACETAMINOPHEN 5/325MG TABLET PO PRN ×2 (11:13→21:28)
[2019-06-22] MEDS ORDERED: FURO40TA5 PO (14:33)
[2019-06-22] MEDS ORDERED: MORP30TA54 PO (14:34)
[2019-06-22] MEDS ORDERED: LINA290C PO (14:34)
[2019-06-22] MEDS ORDERED: POTA10CA42 PO (14:35)
[2019-06-22] MEDS ORDERED: METO5TAB69 PO (14:37)
[2019-06-22 16:08] LABS: NUCLEATED RED BLOOD CELLS 4 /100 WBC; PLATELET ESTIMATE NORMAL
[2019-06-22] MEDS: SACUBITRIL/VALSARTAN 24/26 TAB PO SCH (17:08)
[2019-06-22 19:31] LABS: HEMATOCRIT 25.9 % (36.0-48.0); HEMOGLOBIN 9.1 g/dL (12.0-16.0)
[2019-06-22 19:43] LABS: INR 1.2; PROTHROMBIN TIME 11.8 sec (9.6-11.0)
[2019-06-23] VITALS: BP 93/66
[2019-06-23] MEDS: MORPHINE SULFATE 15MG TABLET SR PO SCH (01:00)
[2019-06-23 04:00] VITALS: BP 141/80
[2019-06-23] MEDS: SODIUM CHLORIDE 0.9% 1,000 ML IV SCH (05:54)
[2019-06-23] MEDS: SACUBITRIL/VALSARTAN 24/26 TAB PO SCH (05:55)
[2019-06-23 06:24] LABS: HEMATOCRIT. 24.9 % (36.0-48.0); HEMOGLOBIN. 8.7 g/dL (12.0-16.0); MEAN CORPUSCULAR HEMOGLOBIN 32.6 pg (28.0-32.0); MEAN CORPUSCULAR VOLUME 93.3 fL (81.0-99.0); MEAN PLATELET VOLUME 8.1 fl (7.4-10.4); PLATELET 282 x1000/uL (130-400); RED BLOOD CELL COUNT 2.67 mill/uL (4.2-5.4); RED CELL DISTRIBUTION WIDTH 19.2 % (11.6-14.6)
[2019-06-23 06:31] LABS: CHLORIDE 110 mEq/L (98-107)
[2019-06-23 08:00] VITALS: BP 130/66
[2019-06-23] MEDS ORDERED: MORP30CP13 MT (08:57)
[2019-06-23] MEDS: DOCUSATE SODIUM 250MG CAPSULE PO SCH (09:00)
[2019-06-23] MEDS: FOLIC ACID 1MG TABLET PO SCH (09:53)
[2019-06-23] MEDS: POTASSIUM CHLORIDE 10MEQ TABLET SR PO SCH (09:53)
[2019-06-23] MEDS: APIXABAN 5 MG TABLET PO SCH (09:53)
[2019-06-23] MEDS: METOPROLOL TARTRATE 50MG TABLET PO SCH (09:54)
[2019-06-23] MEDS: FUROSEMIDE 20MG/2ML VIAL IVP SCH (09:57)
[2019-06-23 12:13] VITALS: BP 129/67
[2019-06-23 12:37] LABS: NUCLEATED RED BLOOD CELLS 2 /100 WBC
[2019-06-23 12:38] LABS: PLATELET ESTIMATE NORMAL
[2019-06-23 23:21] LABS: HEMATOCRIT. 19.2 % (36.0-48.0)
== END 2019-06-23 13:30 | disposition home or self-care (01) | DRG 291 ==
LOC: ER 17:58 → 5WST 19:54 → EDBEDREQ 19:58 → EDBEDREQTM 19:58 → ENRESERV 23:10
PROVIDERS: ADMIT Internal Medicine Nephrology; ATTEND Internal Medicine Nephrology
PROC: 30233N1 Transfusion of Nonautologous Red Blood Cells into Peripheral Vein, Percutaneous Approach (ICD-10-PCS; principal; 2019-06-21)
DX: I11.0 Hypertensive heart disease with heart failure (principal); N17.0 Acute kidney failure with tubular necrosis; D57.00 Hb-SS disease with crisis, unspecified; I50.23 Acute on chronic systolic (congestive) heart failure; E87.5 Hyperkalemia; G89.4 Chronic pain syndrome; I95.9 Hypotension, unspecified; E80.6 Other disorders of bilirubin metabolism; K76.1 Chronic passive congestion of liver; I48.0 Paroxysmal atrial fibrillation; Z86.73 Personal history of transient ischemic attack (TIA), and cerebral infarction without residual deficits; Z99.81 Dependence on supplemental oxygen; Z79.01 Long term (current) use of anticoagulants; Z79.899 Other long term (current) drug therapy; Z98.891 History of uterine scar from previous surgery
CPT/HCPCS: 36415; 71045; 80048; 81003; 82270; 82746; 83540; 83550; 83880; 84484; 85014; 85018; 85044; 85049; 85384; 86850; 86870; 86900; 86920; 93005; 96374; 96375; 99291; J1940; J2270; J2405; J7030; J7040; P9016

== ENCOUNTER 2019-10-26 15:57 | Inpatient (IN) | payer MEDICARE, MEDICAID ==
[~2019-10-26] VITALS: Ht 170.2 cm; Wt 59.0 kg
[~2019-10-26 15:57] MED LIST changes: -FOLI-43 PO; +FURO40TA5 PO; +LINA290C PO; +METO5TAB7 PO; -MORP15TA54 PO; +MORP30CP13 MT; +MORP30TA54 PO; -OMEP20TA15 PO; +POTA10CA42 PO
[2019-10-26 18:21] LABS: CHLORIDE 108 mEq/L (98-107)
[2019-10-26 18:32] LABS: MEAN CORPUSCULAR HEMOGLOBIN 36.6 pg (28.0-32.0); MEAN CORPUSCULAR VOLUME 102.6 fL (81.0-99.0); MEAN PLATELET VOLUME 7.8 fl (7.4-10.4); PLATELET 317 x1000/uL (130-400); RED BLOOD CELL COUNT 1.81 mill/uL (4.2-5.4); RED CELL DISTRIBUTION WIDTH 25.7 % (11.6-14.6)
[2019-10-26 18:38] LABS: HEMATOCRIT. 18.6 % (36.0-48.0); HEMOGLOBIN. 6.6 g/dL (12.0-16.0)
[2019-10-26] MEDS ORDERED: FUROSEMIDE 20MG/2ML VIAL IVP ONE (18:45)
[2019-10-26] MEDS ORDERED: ONDANSETRON HCL 4MG/2ML INJ IV ONE (19:30)
[2019-10-26] MEDS ORDERED: FENTANYL CITRATE/PF 50MCG/ML 2ML VIAL IV ONE (19:30)
[2019-10-26 20:21] LABS: NUCLEATED RED BLOOD CELLS 21 /100 WBC; PLATELET ESTIMATE NORMAL
[2019-10-26 21:36] LABS: TOTAL IRON BINDING CAPACITY 210 ug/dL (250-450)
[2019-10-26] MEDS ORDERED: MAGNESIUM/ALUMINUM HYDROXIDE/SIMETHICONE 30ML UDC PO PRN (22:15)
[2019-10-26] MEDS ORDERED: ONDANSETRON HCL 4MG/2ML INJ IV PRN (22:15)
[2019-10-26] MEDS ORDERED: CLONIDINE 0.1MG TABLET PO PRN (22:15)
[2019-10-27] VITALS (14 sets, daily range): BP systolic 106–131; BP diastolic 50–75
[2019-10-27 05:30] LABS: MEAN CORPUSCULAR HEMOGLOBIN 36.5 pg (28.0-32.0); MEAN CORPUSCULAR VOLUME 102.4 fL (81.0-99.0); MEAN PLATELET VOLUME 7.6 fl (7.4-10.4); PLATELET 297 x1000/uL (130-400); RED BLOOD CELL COUNT 1.72 mill/uL (4.2-5.4); RED CELL DISTRIBUTION WIDTH 24.4 % (11.6-14.6)
[2019-10-27 05:36] LABS: CHLORIDE 107 mEq/L (98-107)
[2019-10-27 05:41] LABS: HEMATOCRIT. 17.6 % (36.0-48.0); HEMOGLOBIN. 6.3 g/dL (12.0-16.0)
[2019-10-27 05:47] LABS: CLARITY URINE CLEAR (CLEAR); COLOR URINE DARK YELLOW (YELLOW); KETONES URINE NEGATIVE (NEGATIVE); LEUKOCYTE ESTERASE URINE TRACE (NEGATIVE); NITRITE URINE NEGATIVE (NEGATIVE); OCCULT BLOOD URINE NEGATIVE (NEGATIVE); PH URINE 6.5 (4.5-8.0); PROTEIN URINE TRACE (NEGATIVE)
[2019-10-27 06:06] LABS: *AMPHETAMINES SCREEN URINE NEGATIVE (NEGATIVE); *BARBITURATES SCREEN URINE NEGATIVE (NEGATIVE); *BENZODIAZEPINES SCREEN URINE NEGATIVE (NEGATIVE); *COCAINE SCREEN URINE NEGATIVE (NEGATIVE)
[2019-10-27 06:07] LABS: CANNABINOID URINE SCREEN NEGATIVE (NEGATIVE); METHADONE URINE SCREEN NEGATIVE (NEGATIVE); OPIATES URINE SCREEN PRESUMTIVE POSITIVE (NEGATIVE)
[2019-10-27 06:08] LABS: PHENCYCLIDINE URINE SCREEN NEGATIVE (NEGATIVE)
[2019-10-27 07:07] LABS: NUCLEATED RED BLOOD CELLS 7 /100 WBC
[2019-10-27 07:08] LABS: PLATELET ESTIMATE NORMAL
[2019-10-27] MEDS ORDERED: NON FORMULARY PATIENT HOME MED XX SCH (08:45)
[2019-10-27] MEDS: SACUBITRIL/VALSARTAN 24/26 TAB PO SCH ×2 (09:00→19:06)
[2019-10-27] MEDS ORDERED: FERROUS SULFATE 325MG TABLET PO SCH (09:00)
[2019-10-27] MEDS: DOCUSATE SODIUM 250MG CAPSULE PO SCH (09:00)
[2019-10-27] MEDS: FAMOTIDINE 20MG TABLET PO SCH ×2 (09:14→20:48)
[2019-10-27] MEDS: FUROSEMIDE 40MG/4ML VIAL IVP SCH ×2 (09:14→18:00)
[2019-10-27] MEDS: FOLIC ACID/VITAMIN B COMP W-C TABLET PO SCH (09:14)
[2019-10-27] MEDS: POTASSIUM CHLORIDE 20MEQ TABLET SR PO SCH (09:14)
[2019-10-27] MEDS: APIXABAN 5 MG TABLET PO SCH ×2 (09:17→19:06)
[2019-10-27] MEDS: HYDROMORPHONE HCL/PF 2MG/ML CPJ IV PRN (15:52)
[2019-10-27] MEDS ORDERED: ZOLPIDEM TARTRATE 5MG TABLET PO PRN (21:00)
[2019-10-28] VITALS: BP 114/67
[2019-10-28 00:05] LABS: HEMATOCRIT 24.1 % (36.0-48.0); HEMOGLOBIN 8.5 g/dL (12.0-16.0)
[2019-10-28 04:00] VITALS: BP 123/67
[2019-10-28] MEDS: FUROSEMIDE 40MG/4ML VIAL IVP SCH (06:00)
[2019-10-28 07:26] LABS: HEMATOCRIT. 23.9 % (36.0-48.0); HEMOGLOBIN. 8.5 g/dL (12.0-16.0); MEAN CORPUSCULAR HEMOGLOBIN 35.3 pg (28.0-32.0); MEAN CORPUSCULAR VOLUME 99.7 fL (81.0-99.0); RED CELL DISTRIBUTION WIDTH 22.8 % (11.6-14.6)
[2019-10-28 07:32] LABS: CHLORIDE 107 mEq/L (98-107)
[2019-10-28 08:07] VITALS: BP 107/56
[2019-10-28] MEDS: SACUBITRIL/VALSARTAN 24/26 TAB PO SCH ×3 (08:46→17:00)
[2019-10-28] MEDS: POTASSIUM CHLORIDE 20MEQ TABLET SR PO SCH (08:51)
[2019-10-28] MEDS: APIXABAN 5 MG TABLET PO SCH ×2 (08:51→16:54)
[2019-10-28] MEDS: FAMOTIDINE 20MG TABLET PO SCH ×2 (08:51→20:44)
[2019-10-28] MEDS: FOLIC ACID/VITAMIN B COMP W-C TABLET PO SCH (08:58)
[2019-10-28] MEDS: DOCUSATE SODIUM 250MG CAPSULE PO SCH ×2 (08:59)
[2019-10-28] MEDS ORDERED: FUROSEMIDE 40MG TABLET PO SCH (09:00)
[2019-10-28] MEDS ORDERED: METOPROLOL TARTRATE 25MG TABLET PO SCH (09:00)
[2019-10-28] MEDS ORDERED: MORPHINE SULFATE 10 MG/ML CPJ IM NR (09:00)
[2019-10-28 10:12] LABS: NUCLEATED RED BLOOD CELLS 7 /100 WBC
[2019-10-28 10:13] LABS: PLATELET ESTIMATE NORMAL
[2019-10-28 10:49] LABS: MEAN PLATELET VOLUME 8.5 fl (7.4-10.4); PLATELET 269 x1000/uL (130-400)
[2019-10-28] MEDS: METOLAZONE 2.5MG TABLET PO SCH (10:53)
[2019-10-28] MEDS: HYDROMORPHONE HCL/PF 2MG/ML CPJ IV PRN (10:54)
[2019-10-28] MEDS: DILTIAZEM HCL 5MG/ML 5ML VIAL IV SCH (11:49)
[2019-10-28 12:17] VITALS: BP 150/81
[2019-10-28] MEDS ORDERED: DIPHENHYDRAMINE 25MG CAPSULE PO PRN (14:30)
[2019-10-28 16:23] VITALS: BP 145/77
[2019-10-28] MEDS: MORPHINE SULFATE 2 MG/ML CPJ (NOT FOR IM USE) IV PRN (16:55)
[2019-10-28] MEDS: METOPROLOL TARTRATE 50MG TABLET PO SCH (20:44)
[2019-10-28 20:51] VITALS: BP 131/59
[2019-10-29] VITALS (11 sets, daily range): BP systolic 100–129; BP diastolic 46–56
[2019-10-29] MEDS: IPRATROPIUM/ALBUTEROL 0.5-3(2.5)MG/3ML NEB HHN SCH ×6 (00:47→20:18)
[2019-10-29] MEDS: ACETAMINOPHEN 325MG TABLET PO PRN ×2 (01:49→13:22)
[2019-10-29 06:54] LABS: CHLORIDE 104 mEq/L (98-107)
[2019-10-29 07:07] LABS: HEMATOCRIT. 21.4 % (36.0-48.0); HEMOGLOBIN. 7.7 g/dL (12.0-16.0); MEAN CORPUSCULAR HEMOGLOBIN 35.5 pg (28.0-32.0); MEAN CORPUSCULAR VOLUME 99.4 fL (81.0-99.0); MEAN PLATELET VOLUME 8.2 fl (7.4-10.4); PLATELET 250 x1000/uL (130-400); RED BLOOD CELL COUNT 2.16 mill/uL (4.2-5.4); RED CELL DISTRIBUTION WIDTH 23.2 % (11.6-14.6)
[2019-10-29 07:36] LABS: NUCLEATED RED BLOOD CELLS 4 /100 WBC; PLATELET ESTIMATE NORMAL
[2019-10-29] MEDS: METOLAZONE 2.5MG TABLET PO SCH (09:00)
[2019-10-29] MEDS: DOCUSATE SODIUM 250MG CAPSULE PO SCH (09:00)
[2019-10-29] MEDS: POTASSIUM CHLORIDE 20MEQ TABLET SR PO SCH (09:39)
[2019-10-29] MEDS: APIXABAN 5 MG TABLET PO SCH ×2 (09:39→17:19)
[2019-10-29] MEDS: FOLIC ACID/VITAMIN B COMP W-C TABLET PO SCH (09:39)
[2019-10-29] MEDS: FUROSEMIDE 40MG/4ML VIAL IVP SCH (09:40)
[2019-10-29] MEDS: METOPROLOL TARTRATE 50MG TABLET PO SCH ×2 (09:40→20:41)
[2019-10-29] MEDS: FAMOTIDINE 20MG TABLET PO SCH ×2 (09:40→20:41)
[2019-10-29] MEDS: SACUBITRIL/VALSARTAN 24/26 TAB PO SCH ×2 (09:57→17:20)
[2019-10-29] MEDS: MORPHINE SULFATE 2 MG/ML CPJ (NOT FOR IM USE) IV PRN ×2 (09:59→20:41)
[2019-10-29] MEDS: DILTIAZEM HCL 5MG/ML 5ML VIAL IV SCH (13:58)
[2019-10-29 21:26] LABS: HEMATOCRIT 25.9 % (36.0-48.0); HEMOGLOBIN 9.3 g/dL (12.0-16.0)
[2019-10-30] VITALS: BP 108/54
[2019-10-30] MEDS: IPRATROPIUM/ALBUTEROL 0.5-3(2.5)MG/3ML NEB HHN SCH ×2 (00:22→05:04)
[2019-10-30 07:22] LABS: HEMATOCRIT. 25.6 % (36.0-48.0); HEMOGLOBIN. 9.2 g/dL (12.0-16.0); MEAN CORPUSCULAR HEMOGLOBIN 34.7 pg (28.0-32.0); MEAN CORPUSCULAR VOLUME 96.4 fL (81.0-99.0); MEAN PLATELET VOLUME 8.3 fl (7.4-10.4); PLATELET 273 x1000/uL (130-400); RED BLOOD CELL COUNT 2.66 mill/uL (4.2-5.4); RED CELL DISTRIBUTION WIDTH 21.8 % (11.6-14.6)
[2019-10-30 08:20] LABS: CHLORIDE 104 mEq/L (98-107)
[2019-10-30 08:32] VITALS: BP 123/63
[2019-10-30] MEDS: FOLIC ACID/VITAMIN B COMP W-C TABLET PO SCH (08:49)
[2019-10-30] MEDS: SACUBITRIL/VALSARTAN 24/26 TAB PO SCH (08:49)
[2019-10-30] MEDS: POTASSIUM CHLORIDE 20MEQ TABLET SR PO SCH (08:49)
[2019-10-30] MEDS: APIXABAN 5 MG TABLET PO SCH (08:49)
[2019-10-30] MEDS: FAMOTIDINE 20MG TABLET PO SCH (08:49)
[2019-10-30] MEDS: METOPROLOL TARTRATE 50MG TABLET PO SCH (08:50)
[2019-10-30] MEDS: METOLAZONE 2.5MG TABLET PO SCH (08:51)
[2019-10-30] MEDS: DOCUSATE SODIUM 250MG CAPSULE PO SCH (08:51)
[2019-10-30] MEDS: FUROSEMIDE 40MG/4ML VIAL IVP SCH (08:52)
[2019-10-30 10:05] VITALS: BP 123/63
[2019-10-30 11:42] LABS: NUCLEATED RED BLOOD CELLS 4 /100 WBC; PLATELET ESTIMATE NORMAL
[2019-11-02 10:08] LABS: HGB A 23.4 % (96.4-98.8); HGB A2 3.5 % (1.8-3.2); HGB F 7.9 % (0.0-2.0); HGB S 65.2 % (0.0)
== END 2019-10-30 11:10 | disposition home or self-care (01) | DRG 291 ==
LOC: ER 15:57 → 6WST 21:10 → EDBEDREQ 21:36 → EDBEDREQTM 21:36 → ENRESERV 22:41 → CANRESERV 22:41 → ENRESERV 10-27 05:39
PROVIDERS: ADMIT Internal Medicine Geriatric Medicine; ATTEND Internal Medicine Geriatric Medicine
PROC: 30233N1 Transfusion of Nonautologous Red Blood Cells into Peripheral Vein, Percutaneous Approach (ICD-10-PCS; principal; 2019-10-27)
PROC: 02HV33Z Insertion of Infusion Device into Superior Vena Cava, Percutaneous Approach (ICD-10-PCS; 2019-10-28)
PROC: B548ZZA Ultrasonography of Superior Vena Cava, Guidance (ICD-10-PCS; 2019-10-28)
PROC: B5181ZA Fluoroscopy of Superior Vena Cava using Low Osmolar Contrast, Guidance (ICD-10-PCS; 2019-10-28)
DX: I11.0 Hypertensive heart disease with heart failure (principal); D57.00 Hb-SS disease with crisis, unspecified; I48.20 Chronic atrial fibrillation, unspecified; J96.10 Chronic respiratory failure, unspecified whether with hypoxia or hypercapnia; I69.354 Hemiplegia and hemiparesis following cerebral infarction affecting left non-dominant side; I50.23 Acute on chronic systolic (congestive) heart failure; I42.9 Cardiomyopathy, unspecified; I48.0 Paroxysmal atrial fibrillation; I27.20 Pulmonary hypertension, unspecified; I34.0 Nonrheumatic mitral (valve) insufficiency; D75.89 Other specified diseases of blood and blood-forming organs; G89.4 Chronic pain syndrome; I25.10 Atherosclerotic heart disease of native coronary artery without angina pectoris; M19.90 Unspecified osteoarthritis, unspecified site; Z96.649 Presence of unspecified artificial hip joint; J44.9 Chronic obstructive pulmonary disease, unspecified; K59.00 Constipation, unspecified; Z79.01 Long term (current) use of anticoagulants; Z79.899 Other long term (current) drug therapy; Z99.81 Dependence on supplemental oxygen; Z98.891 History of uterine scar from previous surgery
CPT/HCPCS: 36415; 36573; 71045; 76937; 80048; 80053; 80305; 81003; 82270; 83021; 83540; 83550; 83735; 83880; 84443; 84484; 85014; 85018; 85025; 85044; 85660; 86850; 86870; 86900; 86920; 93005; 93306; 94640; 97162; 99291; C1725; J1170; J1940; J2270; J2405; J3010; J3490; P9016; Q0163

== ENCOUNTER 2020-04-11 17:23 | Inpatient (IN) | payer MEDICARE, MEDICAID ==
[~2020-04-11] VITALS: Ht 170.2 cm; Wt 64.0 kg
[~2020-04-11 17:23] MED LIST changes: -LINA290C PO; -METO5TAB7 PO; -MORP30TA54 PO
[2020-04-11 17:55] VITALS: BP 120/59
[2020-04-11] MEDS ORDERED: MAGNESIUM/ALUMINUM HYDROXIDE/SIMETHICONE 30ML UDC PO PRN (18:00)
[2020-04-11] MEDS ORDERED: ACETAMINOPHEN 325MG TABLET PO PRN (18:00)
[2020-04-11] MEDS ORDERED: ZOLPIDEM TARTRATE 5MG TABLET PO PRN (18:00)
[2020-04-11] MEDS ORDERED: CLONIDINE 0.1MG TABLET PO PRN (18:00)
[2020-04-11] MEDS ORDERED: ONDANSETRON HCL 4MG/2ML INJ IV PRN (18:00)
[2020-04-11] MEDS ORDERED: DOCUSATE SODIUM 250MG CAPSULE PO PRN (18:00)
[2020-04-11] MEDS ORDERED: DIPHENHYDRAMINE 50MG/ML VIAL IV PRN (18:00)
[2020-04-11 18:44] LABS: MEAN CORPUSCULAR HEMOGLOBIN 36.9 pg (28.0-32.0); MEAN CORPUSCULAR VOLUME 100.9 fL (81.0-99.0); MEAN PLATELET VOLUME 7.6 fl (7.4-10.4); PLATELET 296 x1000/uL (130-400); RED BLOOD CELL COUNT 1.71 mill/uL (4.2-5.4); RED CELL DISTRIBUTION WIDTH 26.8 % (11.6-14.6)
[2020-04-11 18:50] LABS: CHLORIDE 105 mEq/L (98-107)
[2020-04-11 18:56] LABS: TOTAL IRON BINDING CAPACITY 200 ug/dL (250-450)
[2020-04-11 19:06] LABS: HEMOGLOBIN. 6.3 g/dL (12.0-16.0)
[2020-04-11 19:07] LABS: HEMATOCRIT. 17.3 % (36.0-48.0)
[2020-04-11 20:00] VITALS: BP 118/51
[2020-04-11 20:55] LABS: NUCLEATED RED BLOOD CELLS 7 /100 WBC; PLATELET ESTIMATE NORMAL
[2020-04-11] MEDS ORDERED: FUROSEMIDE 40MG/4ML VIAL IVP NR (21:00)
[2020-04-11] MEDS: MORPHINE SULFATE 30MG TABLET SR PO SCH (21:00)
[2020-04-11] MEDS ORDERED: POTASSIUM CHLORIDE 10MEQ TABLET SR PO NR (21:00)
[2020-04-11] MEDS: APIXABAN 5 MG TABLET PO SCH (21:07)
[2020-04-11] MEDS: SACUBITRIL/VALSARTAN 24/26 TAB PO SCH (21:08)
[2020-04-11] MEDS ORDERED: LACTULOSE 20G/30ML UDC PO SCH (21:15)
[2020-04-12] VITALS (9 sets, daily range): BP systolic 88–129; BP diastolic 50–62
[2020-04-12 06:49] LABS: MEAN CORPUSCULAR HEMOGLOBIN 36.6 pg (28.0-32.0); MEAN CORPUSCULAR VOLUME 102.2 fL (81.0-99.0); PLATELET 310 x1000/uL (130-400); RED BLOOD CELL COUNT 1.86 mill/uL (4.2-5.4); RED CELL DISTRIBUTION WIDTH 23.3 % (11.6-14.6)
[2020-04-12 07:06] LABS: HEMOGLOBIN. 6.8 g/dL (12.0-16.0)
[2020-04-12 07:07] LABS: CHLORIDE 107 mEq/L (98-107)
[2020-04-12] MEDS: FOLIC ACID/VITAMIN B COMP W-C TABLET PO SCH (08:17)
[2020-04-12] MEDS: SACUBITRIL/VALSARTAN 24/26 TAB PO SCH ×2 (08:17→21:00)
[2020-04-12] MEDS: POTASSIUM CHLORIDE 10MEQ TABLET SR PO SCH (08:17)
[2020-04-12] MEDS: APIXABAN 5 MG TABLET PO SCH ×2 (08:17→21:00)
[2020-04-12] MEDS: MORPHINE SULFATE 30MG TABLET SR PO SCH ×2 (08:20→21:00)
[2020-04-12] MEDS ORDERED: SODIUM BICARBONATE 4% (2.4MEQ) 5ML VIAL IV ONE (09:55)
[2020-04-12] MEDS ORDERED: LIDOCAINE HCL 1% 20ML VIAL (Pyxis) INJ ONE (09:55)
[2020-04-12] MEDS: FUROSEMIDE 40MG/4ML VIAL IVP SCH (11:03)
[2020-04-12] MEDS ORDERED: METOPROLOL TARTRATE 50MG TABLET PO SCH (12:00)
[2020-04-12] MEDS ORDERED: METOPROLOL TARTRATE 25MG TABLET PO NR (12:15)
[2020-04-12 17:53] LABS: PLATELET ESTIMATE NORMAL
[2020-04-12] MEDS ORDERED: MORPHINE SULFATE 2 MG/ML CPJ (NOT FOR IM USE) IV NR (18:46)
[2020-04-12] MEDS: METOPROLOL TARTRATE 50MG TABLET PO SCH (20:59)
[2020-04-13] VITALS (9 sets, daily range): BP systolic 113–127; BP diastolic 62–66
[2020-04-13 08:55] LABS: HEMATOCRIT. 22.5 % (36.0-48.0); MEAN CORPUSCULAR HEMOGLOBIN 33.6 pg (28.0-32.0); MEAN PLATELET VOLUME 7.9 fl (7.4-10.4); PLATELET 273 x1000/uL (130-400); RED BLOOD CELL COUNT 2.39 mill/uL (4.2-5.4); RED CELL DISTRIBUTION WIDTH 22.7 % (11.6-14.6)
[2020-04-13] MEDS: MORPHINE SULFATE 30MG TABLET SR PO SCH (09:00)
[2020-04-13] MEDS: FUROSEMIDE 40MG/4ML VIAL IVP SCH (09:00)
[2020-04-13] MEDS: APIXABAN 5 MG TABLET PO SCH (09:38)
[2020-04-13] MEDS: SACUBITRIL/VALSARTAN 24/26 TAB PO SCH (09:38)
[2020-04-13] MEDS: FOLIC ACID/VITAMIN B COMP W-C TABLET PO SCH (09:39)
[2020-04-13] MEDS: POTASSIUM CHLORIDE 10MEQ TABLET SR PO SCH (09:39)
[2020-04-13] MEDS: METOPROLOL TARTRATE 50MG TABLET PO SCH (09:39)
[2020-04-13 10:37] LABS: PLATELET ESTIMATE NORMAL
== END 2020-04-13 11:35 | disposition home or self-care (01) | DRG 812 ==
LOC: 6EST 17:23
PROVIDERS: ADMIT Internal Medicine Geriatric Medicine; ATTEND Internal Medicine Geriatric Medicine
PROC: 30233N1 Transfusion of Nonautologous Red Blood Cells into Peripheral Vein, Percutaneous Approach (ICD-10-PCS; principal; 2020-04-12)
PROC: 05H433Z Insertion of Infusion Device into Left Innominate Vein, Percutaneous Approach (ICD-10-PCS; 2020-04-12)
PROC: B54NZZA Ultrasonography of Left Upper Extremity Veins, Guidance (ICD-10-PCS; 2020-04-12)
PROC: B51N1ZA Fluoroscopy of Left Upper Extremity Veins using Low Osmolar Contrast, Guidance (ICD-10-PCS; 2020-04-12)
DX: D57.00 Hb-SS disease with crisis, unspecified (principal); I48.20 Chronic atrial fibrillation, unspecified; I50.9 Heart failure, unspecified; G89.4 Chronic pain syndrome; I11.0 Hypertensive heart disease with heart failure; Z86.73 Personal history of transient ischemic attack (TIA), and cerebral infarction without residual deficits; Z79.899 Other long term (current) drug therapy
CPT/HCPCS: 36415; 36573; 76937; 80048; 80053; 80076; 83540; 83550; 85025; 85044; 86850; 86870; 86900; 86920; C1725; C1769; J1940; J2270; J3490; P9016

== ENCOUNTER 2020-11-21 16:55 | Inpatient (IN) | payer MEDICAID, MEDICARE ==
[~2020-11-21] VITALS: Ht 170.2 cm; Wt 60.5 kg
[2020-11-21] MEDS ORDERED: FENTANYL CITRATE/PF 50MCG/ML 2ML VIAL IV ONE (18:00)
[2020-11-21 19:26] LABS: CHLORIDE 103 mEq/L (98-107)
[2020-11-21 19:36] LABS: MEAN CORPUSCULAR HEMOGLOBIN 35.3 pg (28.0-32.0); MEAN CORPUSCULAR VOLUME 103.6 fL (81.0-99.0); MEAN PLATELET VOLUME 7.8 fl (7.4-10.4); PLATELET 234 x1000/uL (130-400); RED BLOOD CELL COUNT 1.93 mill/uL (4.2-5.4); RED CELL DISTRIBUTION WIDTH 30.5 % (11.6-14.6)
[2020-11-21 19:46] LABS: *AMPHETAMINES SCREEN URINE NEGATIVE (NEGATIVE); *BARBITURATES SCREEN URINE NEGATIVE (NEGATIVE)
[2020-11-21 19:47] LABS: *BENZODIAZEPINES SCREEN URINE NEGATIVE (NEGATIVE); *COCAINE SCREEN URINE NEGATIVE (NEGATIVE); METHADONE URINE SCREEN NEGATIVE (NEGATIVE); OPIATES URINE SCREEN PRESUMTIVE POSITIVE (NEGATIVE); PHENCYCLIDINE URINE SCREEN NEGATIVE (NEGATIVE)
[2020-11-21 19:48] LABS: CANNABINOID URINE SCREEN NEGATIVE (NEGATIVE)
[2020-11-21 20:00] LABS: HEMOGLOBIN. 6.8 g/dL (12.0-16.0)
[2020-11-21 21:05] LABS: NUCLEATED RED BLOOD CELLS 105 /100 WBC
[2020-11-21 21:06] LABS: PLATELET ESTIMATE NORMAL
[2020-11-21] MEDS ORDERED: FUROSEMIDE 20MG/2ML VIAL IVP ONE (21:15)
[2020-11-22] VITALS (8 sets, daily range): BP systolic 102–130; BP diastolic 52–74
[2020-11-22] MEDS ORDERED: MORP30TA54 MT (00:37)
[2020-11-22] MEDS ORDERED: MORP30TA66 MT (00:38)
[2020-11-22] MEDS ORDERED: TOPUD MT (00:38)
[2020-11-22] MEDS: MORPHINE SULFATE 2 MG/ML CPJ (NOT FOR IM USE) IV PRN ×2 (02:06→14:35)
[2020-11-22] MEDS ORDERED: FOLIC ACID 1MG TABLET PO SCH (09:00)
[2020-11-22] MEDS: SACUBITRIL/VALSARTAN 24/26 TAB PO SCH ×2 (09:26→20:47)
[2020-11-22] MEDS: METOPROLOL TARTRATE 50MG TABLET PO SCH ×2 (09:27→20:47)
[2020-11-22] MEDS: FUROSEMIDE 40MG/4ML VIAL IVP SCH ×2 (09:27→17:16)
[2020-11-22] MEDS: FOLIC ACID 1MG TABLET PO SCH (09:27)
[2020-11-22] MEDS: APIXABAN 5 MG TABLET PO SCH ×2 (09:27→17:16)
[2020-11-22] MEDS ORDERED: ACETAMINOPHEN 325MG TABLET PO PRN (15:30)
[2020-11-22] MEDS: HYDROCODONE/ACETAMINOPHEN 10/325MG TABLET PO PRN (18:47)
[2020-11-22 19:16] LABS: HEMATOCRIT. 22.5 % (36.0-48.0); HEMOGLOBIN. 7.7 g/dL (12.0-16.0); MEAN CORPUSCULAR HEMOGLOBIN 34.6 pg (28.0-32.0); MEAN CORPUSCULAR VOLUME 100.2 fL (81.0-99.0); MEAN PLATELET VOLUME 7.5 fl (7.4-10.4); PLATELET 302 x1000/uL (130-400); RED BLOOD CELL COUNT 2.24 mill/uL (4.2-5.4); RED CELL DISTRIBUTION WIDTH 29.7 % (11.6-14.6)
[2020-11-22 19:21] LABS: CHLORIDE 97 mEq/L (98-107)
[2020-11-22 19:54] LABS: NUCLEATED RED BLOOD CELLS 104 /100 WBC; PLATELET ESTIMATE NORMAL
[2020-11-23] VITALS: BP 127/69
[2020-11-23 04:00] VITALS: BP 126/63
[2020-11-23] MEDS: FUROSEMIDE 40MG/4ML VIAL IVP SCH ×2 (06:11→17:17)
[2020-11-23] MEDS: MORPHINE SULFATE 2 MG/ML CPJ (NOT FOR IM USE) IV PRN ×2 (06:22→21:25)
[2020-11-23 07:09] LABS: CHLORIDE 100 mEq/L (98-107)
[2020-11-23 07:29] LABS: HEMOGLOBIN. 7.1 g/dL (12.0-16.0); MEAN CORPUSCULAR HEMOGLOBIN 36.4 pg (28.0-32.0); MEAN PLATELET VOLUME 7.8 fl (7.4-10.4); PLATELET 256 x1000/uL (130-400); RED BLOOD CELL COUNT 1.95 mill/uL (4.2-5.4); RED CELL DISTRIBUTION WIDTH 28.2 % (11.6-14.6)
[2020-11-23 07:46] LABS: HEMATOCRIT. 19.7 % (36.0-48.0)
[2020-11-23 08:00] VITALS: BP 113/54
[2020-11-23] MEDS: APIXABAN 5 MG TABLET PO SCH ×2 (09:38→17:17)
[2020-11-23] MEDS: SACUBITRIL/VALSARTAN 24/26 TAB PO SCH ×2 (09:38→21:00)
[2020-11-23] MEDS: FOLIC ACID 1MG TABLET PO SCH (09:38)
[2020-11-23] MEDS: METOPROLOL TARTRATE 50MG TABLET PO SCH ×2 (09:38→21:00)
[2020-11-23] MEDS: HYDROCODONE/ACETAMINOPHEN 10/325MG TABLET PO PRN (09:51)
[2020-11-23 12:00] VITALS: BP 113/63
[2020-11-23 16:00] VITALS: BP 109/77
[2020-11-23 17:24] LABS: NUCLEATED RED BLOOD CELLS 93 /100 WBC; PLATELET ESTIMATE NORMAL
[2020-11-23 17:35] LABS: HEMATOCRIT. 24.3 % (36.0-48.0); HEMOGLOBIN. 8.7 g/dL (12.0-16.0); MEAN CORPUSCULAR HEMOGLOBIN 35.9 pg (28.0-32.0); MEAN CORPUSCULAR VOLUME 100.7 fL (81.0-99.0); MEAN PLATELET VOLUME 7.8 fl (7.4-10.4); PLATELET 276 x1000/uL (130-400); RED BLOOD CELL COUNT 2.42 mill/uL (4.2-5.4); RED CELL DISTRIBUTION WIDTH 28.5 % (11.6-14.6)
[2020-11-23 17:49] LABS: CHLORIDE 97 mEq/L (98-107)
[2020-11-23 18:04] LABS: NUCLEATED RED BLOOD CELLS 67 /100 WBC; PLATELET ESTIMATE NORMAL
[2020-11-23 20:00] VITALS: BP 100/59
[2020-11-24] VITALS: BP 124/70
[2020-11-24 04:00] VITALS: BP 127/82
[2020-11-24] MEDS: FUROSEMIDE 40MG/4ML VIAL IVP SCH ×2 (06:44→17:40)
[2020-11-24] MEDS: HYDROCODONE/ACETAMINOPHEN 10/325MG TABLET PO PRN (06:52)
[2020-11-24 08:00] VITALS: BP 109/68
[2020-11-24] MEDS: METOPROLOL TARTRATE 50MG TABLET PO SCH (09:00)
[2020-11-24] MEDS: SACUBITRIL/VALSARTAN 24/26 TAB PO SCH (09:20)
[2020-11-24] MEDS: APIXABAN 5 MG TABLET PO SCH ×2 (09:20→17:40)
[2020-11-24] MEDS: FOLIC ACID 1MG TABLET PO SCH (09:20)
[2020-11-24] MEDS: MORPHINE SULFATE 2 MG/ML CPJ (NOT FOR IM USE) IV PRN (09:30)
[2020-11-24 12:00] VITALS: BP 123/72
[2020-11-24] MEDS ORDERED: NITR0.4T49 SL (14:58)
[2020-11-24 16:00] VITALS: BP 104/70
[2020-11-24 17:20] VITALS: BP 109/68
== END 2020-11-24 18:25 | disposition home or self-care (01) | DRG 662 ==
LOC: ER 16:55 → 5WST 21:42 → EDBEDREQ 21:43 → EDBEDREQTM 21:43 → ENRESERV 22:47
PROVIDERS: ADMIT Internal Medicine; ATTEND Internal Medicine
PROC: 30233N1 Transfusion of Nonautologous Red Blood Cells into Peripheral Vein, Percutaneous Approach (ICD-10-PCS; principal; 2020-11-22)
DX: D57.00 Hb-SS disease with crisis, unspecified (principal); I11.0 Hypertensive heart disease with heart failure; I50.23 Acute on chronic systolic (congestive) heart failure; E78.00 Pure hypercholesterolemia, unspecified; I27.20 Pulmonary hypertension, unspecified; I25.10 Atherosclerotic heart disease of native coronary artery without angina pectoris; I42.9 Cardiomyopathy, unspecified; I48.20 Chronic atrial fibrillation, unspecified; Z96.649 Presence of unspecified artificial hip joint; S91.002A Unspecified open wound, left ankle, initial encounter; S91.001A Unspecified open wound, right ankle, initial encounter; I87.8 Other specified disorders of veins; I34.0 Nonrheumatic mitral (valve) insufficiency; E80.6 Other disorders of bilirubin metabolism; Z86.73 Personal history of transient ischemic attack (TIA), and cerebral infarction without residual deficits; Z90.710 Acquired absence of both cervix and uterus; Z79.01 Long term (current) use of anticoagulants
CPT/HCPCS: 36415; 71045; 76700; 80053; 80305; 83880; 84484; 85025; 85044; 86850; 86870; 86900; 86920; 93005; 99285; J1940; J2270; J3010; P9016

== ENCOUNTER 2022-02-04 20:24 | Inpatient (IN) | payer MEDICARE ==
[~2022-02-04] VITALS: Ht 172.7 cm; Wt 58.1 kg
[~2022-02-04 20:24] MED LIST changes: -MORP30CP13 MT; +MORP30TA66 MT; +NITR0.4T49 SL; +POTA-79 PO; +TOPUD MT
[2022-02-04] MEDS ORDERED: ASPIRIN 81MG TABLET PO ONE (22:45)
[2022-02-04] MEDS ORDERED: MORPHINE SULFATE 4 MG/ML CPJ (NOT FOR IM USE) IV ONE (22:45)
[2022-02-04 23:44] LABS: MEAN CORPUSCULAR VOLUME 96.6 fL (81.0-99.0); MEAN PLATELET VOLUME 7.2 fl (7.4-10.4); PLATELET 374 x1000/uL (130-400); RED BLOOD CELL COUNT 1.71 mill/uL (4.2-5.4); RED CELL DISTRIBUTION WIDTH 26.1 % (11.6-14.6)
[2022-02-04 23:51] LABS: HEMOGLOBIN. 5.8 g/dL (12.0-16.0)
[2022-02-04 23:52] LABS: HEMATOCRIT. 16.6 % (36.0-48.0)
[2022-02-04 23:54] LABS: CHLORIDE 105 mEq/L (98-107)
[2022-02-05] VITALS (11 sets, daily range): BP systolic 90–127; BP diastolic 56–75
[2022-02-05] MEDS ORDERED: MORPHINE SULFATE 4 MG/ML CPJ (NOT FOR IM USE) IV ONE (02:15)
[2022-02-05] MEDS ORDERED: NITROGLYCERIN 0.4MG TABLET SL SL PRN ×2 (04:30→09:45)
[2022-02-05] MEDS ORDERED: ACETAMINOPHEN 650MG/20.3ML UDC PO PRN (04:30)
[2022-02-05] MEDS: HYDROCODONE/ACETAMINOPHEN 10/325MG TABLET PO PRN ×3 (05:50→20:45)
[2022-02-05] MEDS: SODIUM CHLORIDE 0.9% 1,000 ML IV SCH (05:51)
[2022-02-05 07:17] LABS: NUCLEATED RED BLOOD CELLS 2 /100 WBC
[2022-02-05 07:18] LABS: PLATELET ESTIMATE NORMAL
[2022-02-05] MEDS ORDERED: MORPHINE SULFATE 15MG TABLET SR PO NR (09:00)
[2022-02-05] MEDS: FOLIC ACID/VITAMIN B COMP W-C TABLET PO SCH (09:05)
[2022-02-05] MEDS: APIXABAN 5 MG TABLET PO SCH ×2 (09:05→16:28)
[2022-02-05] MEDS: METOPROLOL TARTRATE 50MG TABLET PO SCH ×2 (09:06→16:28)
[2022-02-05] MEDS: DOCUSATE SODIUM 250MG CAPSULE PO SCH (09:19)
[2022-02-05] MEDS ORDERED: NON FORMULARY PATIENT HOME MED XX SCH (09:30)
[2022-02-05] MEDS ORDERED: NALOXONE HCL 0.4MG/ML VIAL IV PRN (09:30)
[2022-02-05] MEDS: FUROSEMIDE 40MG/4ML VIAL IVP SCH (10:52)
[2022-02-05] MEDS: SACUBITRIL/VALSARTAN 24MG/26MG TABLET PO SCH ×2 (11:00→16:28)
[2022-02-05] MEDS: BACLOFEN 10MG TABLET PO SCH ×2 (16:28→21:10)
[2022-02-06] VITALS (9 sets, daily range): BP systolic 111–138; BP diastolic 48–68
[2022-02-06] MEDS: SODIUM CHLORIDE 0.9% 1,000 ML IV SCH ×2 (02:00→12:00)
[2022-02-06] MEDS: MORPHINE SULFATE 2 MG/ML CPJ (NOT FOR IM USE) IV PRN ×4 (02:31→21:24)
[2022-02-06] MEDS: BACLOFEN 10MG TABLET PO SCH ×3 (05:55→21:11)
[2022-02-06] MEDS: HYDROCODONE/ACETAMINOPHEN 10/325MG TABLET PO PRN ×3 (06:21→17:55)
[2022-02-06 06:55] LABS: HEMATOCRIT. 23.3 % (36.0-48.0); HEMOGLOBIN. 8.2 g/dL (12.0-16.0); MEAN CORPUSCULAR HEMOGLOBIN 33.2 pg (28.0-32.0); MEAN CORPUSCULAR VOLUME 94.5 fL (81.0-99.0); MEAN PLATELET VOLUME 7.4 fl (7.4-10.4); PLATELET 343 x1000/uL (130-400); RED BLOOD CELL COUNT 2.47 mill/uL (4.2-5.4); RED CELL DISTRIBUTION WIDTH 21.9 % (11.6-14.6)
[2022-02-06 07:07] LABS: CHLORIDE 104 mEq/L (98-107)
[2022-02-06] MEDS: FOLIC ACID/VITAMIN B COMP W-C TABLET PO SCH (08:55)
[2022-02-06] MEDS: FUROSEMIDE 40MG/4ML VIAL IVP SCH (08:55)
[2022-02-06] MEDS: POTASSIUM CHLORIDE 10MEQ TABLET SR PO SCH (08:55)
[2022-02-06] MEDS: DOCUSATE SODIUM 250MG CAPSULE PO SCH (08:55)
[2022-02-06] MEDS: SACUBITRIL/VALSARTAN 24MG/26MG TABLET PO SCH ×2 (08:56→17:55)
[2022-02-06] MEDS: METOPROLOL TARTRATE 50MG TABLET PO SCH ×2 (08:56→17:56)
[2022-02-06] MEDS: APIXABAN 5 MG TABLET PO SCH ×2 (08:56→17:55)
[2022-02-06] MEDS: MULTIVITAMINS,THER W-MINERALS TABLET PO SCH (10:52)
[2022-02-06 11:04] LABS: TOTAL IRON BINDING CAPACITY 279 ug/dL (250-450)
[2022-02-06] MEDS: SOTALOL HCL 80MG TABLET PO SCH ×2 (12:09→20:56)
[2022-02-06 12:36] LABS: CLARITY URINE CLEAR (CLEAR); COLOR URINE YELLOW (YELLOW); KETONES URINE NEGATIVE (NEGATIVE); LEUKOCYTE ESTERASE URINE NEGATIVE (NEGATIVE); NITRITE URINE NEGATIVE (NEGATIVE); OCCULT BLOOD URINE NEGATIVE (NEGATIVE); PROTEIN URINE NEGATIVE (NEGATIVE); SPECIFIC GRAVITY URINE 1.008 (1.005-1.030)
[2022-02-06] MEDS ORDERED: MSCON30 PO (15:32)
[2022-02-06] MEDS ORDERED: FERR-63 PO (15:32)
[2022-02-06] MEDS ORDERED: BACL-141 PO (15:32)
[2022-02-06] MEDS ORDERED: EPOETIN ALFA-EPBX 10,000 UNIT/ML VIAL SUBCUT NR (21:00)
[2022-02-07] VITALS: BP 110/57
[2022-02-07] MEDS: HYDROCODONE/ACETAMINOPHEN 10/325MG TABLET PO PRN ×3 (00:10→13:30)
[2022-02-07 04:00] VITALS: BP 120/56
[2022-02-07] MEDS: BACLOFEN 10MG TABLET PO SCH ×2 (06:19→13:16)
[2022-02-07 08:00] VITALS: BP 115/47
[2022-02-07] MEDS: FUROSEMIDE 40MG/4ML VIAL IVP SCH (09:00)
[2022-02-07] MEDS: MORPHINE SULFATE 2 MG/ML CPJ (NOT FOR IM USE) IV PRN (09:01)
[2022-02-07 09:28] LABS: NUCLEATED RED BLOOD CELLS 4 /100 WBC
[2022-02-07 09:30] LABS: PLATELET ESTIMATE NORMAL
[2022-02-07] MEDS: METOPROLOL TARTRATE 50MG TABLET PO SCH (09:34)
[2022-02-07] MEDS: APIXABAN 5 MG TABLET PO SCH (09:34)
[2022-02-07] MEDS: SOTALOL HCL 80MG TABLET PO SCH (09:34)
[2022-02-07] MEDS: DOCUSATE SODIUM 250MG CAPSULE PO SCH (09:34)
[2022-02-07] MEDS: POTASSIUM CHLORIDE 10MEQ TABLET SR PO SCH (09:34)
[2022-02-07] MEDS: SACUBITRIL/VALSARTAN 24MG/26MG TABLET PO SCH (09:34)
[2022-02-07] MEDS: FOLIC ACID/VITAMIN B COMP W-C TABLET PO SCH (09:34)
[2022-02-07] MEDS: MULTIVITAMINS,THER W-MINERALS TABLET PO SCH (09:35)
[2022-02-07 11:36] VITALS: BP 104/62
[2022-02-07 12:29] VITALS: BP 104/62
[2022-02-07 13:30] VITALS: BP 104/62
[2022-02-07] MEDS ORDERED: EPOETIN ALFA 10000UNITS/ML VIAL SUBCUT NR (21:00)
== END 2022-02-07 15:03 | disposition home health service (06) | DRG 811 ==
LOC: ER 20:24 → 6WST 02-05 02:44 → EDBEDREQ 02-05 02:47 → ENRESERV 02-05 02:56 → EDBEDREQTM 02-05 03:20 → EDBEDREQSVC 02-05 03:20 → EDBEDREQ 02-05 03:20
PROVIDERS: ADMIT Internal Medicine Geriatric Medicine; ATTEND Internal Medicine Geriatric Medicine
PROC: 30233N1 Transfusion of Nonautologous Red Blood Cells into Peripheral Vein, Percutaneous Approach (ICD-10-PCS; principal; 2022-02-05)
DX: D57.00 Hb-SS disease with crisis, unspecified (principal); I50.23 Acute on chronic systolic (congestive) heart failure; E44.0 Moderate protein-calorie malnutrition; I48.20 Chronic atrial fibrillation, unspecified; L97.929 Non-pressure chronic ulcer of unspecified part of left lower leg with unspecified severity; Z68.1 Body mass index [BMI] 19.9 or less, adult; E78.00 Pure hypercholesterolemia, unspecified; G89.4 Chronic pain syndrome; I25.10 Atherosclerotic heart disease of native coronary artery without angina pectoris; I27.29 Other secondary pulmonary hypertension; Z20.822 Contact with and (suspected) exposure to COVID-19; Z96.649 Presence of unspecified artificial hip joint; I73.9 Peripheral vascular disease, unspecified; I11.0 Hypertensive heart disease with heart failure; Z79.01 Long term (current) use of anticoagulants; Z79.899 Other long term (current) drug therapy; Z86.73 Personal history of transient ischemic attack (TIA), and cerebral infarction without residual deficits; Z98.891 History of uterine scar from previous surgery; R51.9 Headache, unspecified; R74.01 Elevation of levels of liver transaminase levels
CPT/HCPCS: 36415; 71045; 73030; 80053; 81003; 83540; 83550; 83880; 85025; 85044; 86850; 86870; 86900; 86920; 87426; 93005; 93306; 97162; 97535; 99291; J0885; J1940; J2270; J7030; P9016

== ENCOUNTER 2022-04-08 17:05 | Inpatient (IN) | payer MEDICARE ==
[~2022-04-08] VITALS: Ht 157.5 cm; Wt 59.4 kg
[~2022-04-08 17:05] MED LIST changes: +BACL-141 PO; +FERR-63 PO; +MSCON30 PO; -POTA-79 PO
[2022-04-08 19:38] LABS: BASOPHILS % 2.8 % (0.0-2.0); EOSINOPHILS % 4.8 % (0.0-5.0); LYMPHOCYTES % 37.5 % (20.0-50.0); MEAN CORPUSCULAR HEMOGLOBIN 33.8 pg (28.0-32.0); MEAN CORPUSCULAR VOLUME 95.8 fL (81.0-99.0); MEAN PLATELET VOLUME 7.2 fl (7.4-10.4); MONOCYTES % 10.8 % (2.0-8.0); NEUTROPHILS % 44.1 % (40.0-76.0); PLATELET 356 x1000/uL (130-400); RED BLOOD CELL COUNT 1.78 mill/uL (4.2-5.4); RED CELL DISTRIBUTION WIDTH 20.7 % (11.6-14.6)
[2022-04-08 19:43] LABS: HEMATOCRIT. 17.1 % (36.0-48.0)
[2022-04-08 19:45] LABS: CHLORIDE 106 mEq/L (98-107)
[2022-04-08 19:46] LABS: INR 1.1; PROTHROMBIN TIME 12.1 sec (9.6-11.0)
[2022-04-08] MEDS ORDERED: MORPHINE SULFATE 4 MG/ML CPJ (NOT FOR IM USE) IV ONE (20:00)
[2022-04-08] MEDS ORDERED: SODIUM CHLORIDE 0.9% 1,000 ML IV ONE (20:00)
[2022-04-08] MEDS ORDERED: ZOLPIDEM TARTRATE 5MG TABLET PO PRN (21:15)
[2022-04-08] MEDS ORDERED: ACETAMINOPHEN 325MG TABLET PO PRN (21:15)
[2022-04-08] MEDS ORDERED: IPRATROPIUM/ALBUTEROL 0.5-3(2.5)MG/3ML NEB HHN PRN (21:15)
[2022-04-08] MEDS ORDERED: MAGNESIUM/ALUMINUM HYDROXIDE/SIMETHICONE 30ML UDC PO PRN (21:15)
[2022-04-08] MEDS ORDERED: CLONIDINE 0.1MG TABLET PO PRN (21:15)
[2022-04-08 21:39] LABS: CLARITY URINE CLEAR (CLEAR); COLOR URINE DARK YELLOW (YELLOW); KETONES URINE NEGATIVE (NEGATIVE); LEUKOCYTE ESTERASE URINE TRACE (NEGATIVE); NITRITE URINE NEGATIVE (NEGATIVE); OCCULT BLOOD URINE TRACE (NEGATIVE); PH URINE 6.5 (4.5-8.0); PROTEIN URINE 2+ (NEGATIVE); SPECIFIC GRAVITY URINE 1.013 (1.005-1.030)
[2022-04-09] VITALS (11 sets, daily range): BP systolic 102–137; BP diastolic 62–78
[2022-04-09] MEDS: HYDROMORPHONE HCL/PF 2MG/ML CPJ IV PRN ×7 (00:12→23:27)
[2022-04-09] MEDS: ONDANSETRON HCL 4MG/2ML INJ IV PRN ×3 (02:55→21:13)
[2022-04-09] MEDS ORDERED: MORP10SO PO (06:14)
[2022-04-09] MEDS ORDERED: HYDR-4001 PO (06:14)
[2022-04-09] MEDS ORDERED: CILOSTAZOL 50 MG TABLET PO SCH (09:00)
[2022-04-09] MEDS: DOCUSATE SODIUM 250MG CAPSULE PO SCH (09:01)
[2022-04-09] MEDS: MULTIVITAMINS,THER W-MINERALS TABLET PO SCH (09:01)
[2022-04-09] MEDS: FOLIC ACID/VITAMIN B COMP W-C TABLET PO SCH (09:01)
[2022-04-09] MEDS: POTASSIUM CHLORIDE 10MEQ TABLET SR PO SCH (09:01)
[2022-04-09] MEDS: FUROSEMIDE 40MG/4ML VIAL IVP SCH (09:01)
[2022-04-09] MEDS ORDERED: NALOXONE HCL 0.4MG/ML VIAL IV PRN (09:15)
[2022-04-09] MEDS: METOPROLOL SUCCINATE 50MG ER TABLET PO SCH (09:55)
[2022-04-09] MEDS: APIXABAN 5 MG TABLET PO SCH ×2 (09:55→16:57)
[2022-04-09] MEDS ORDERED: ERGOCALCIFEROL 50000UNITS CAPSULE PO SCH (10:00)
[2022-04-09] MEDS ORDERED: CALCIUM 1250MG TABLET (500MG ELEMENTAL CALCIUM) PO SCH (10:00)
[2022-04-09] MEDS: MORPHINE SULFATE 4 MG/ML CPJ (NOT FOR IM USE) IV PRN (10:13)
[2022-04-09] MEDS: SACUBITRIL/VALSARTAN 24MG/26MG TABLET PO SCH ×2 (11:15→21:27)
[2022-04-09] MEDS: NYSTATIN/TRIAMCIN CREAM 15GM TOP SCH ×2 (15:03→20:58)
[2022-04-09] MEDS ORDERED: EPOETIN ALFA 10000UNITS/ML VIAL SUBCUT SCH (21:00)
[2022-04-09 23:16] LABS: HEMOGLOBIN. 9.1 g/dL (12.0-16.0); MEAN CORPUSCULAR HEMOGLOBIN 31.6 pg (28.0-32.0); MEAN CORPUSCULAR VOLUME 90.3 fL (81.0-99.0); MEAN PLATELET VOLUME 7.6 fl (7.4-10.4); PLATELET 341 x1000/uL (130-400); RED BLOOD CELL COUNT 2.88 mill/uL (4.2-5.4); RED CELL DISTRIBUTION WIDTH 19.7 % (11.6-14.6)
[2022-04-09 23:28] LABS: CHLORIDE 103 mEq/L (98-107)
[2022-04-10] VITALS: BP 101/66
[2022-04-10 01:24] LABS: PLATELET ESTIMATE NORMAL
[2022-04-10 04:00] VITALS: BP 97/76
[2022-04-10] MEDS: NYSTATIN/TRIAMCIN CREAM 15GM TOP SCH ×3 (05:18→22:31)
[2022-04-10] MEDS: HYDROMORPHONE HCL/PF 2MG/ML CPJ IV PRN ×4 (05:27→18:31)
[2022-04-10 08:00] VITALS: BP 116/71
[2022-04-10] MEDS: SACUBITRIL/VALSARTAN 24MG/26MG TABLET PO SCH ×2 (09:00→22:30)
[2022-04-10] MEDS: POTASSIUM CHLORIDE 10MEQ TABLET SR PO SCH (09:00)
[2022-04-10] MEDS: FUROSEMIDE 40MG/4ML VIAL IVP SCH (09:00)
[2022-04-10] MEDS: METOPROLOL SUCCINATE 50MG ER TABLET PO SCH (09:00)
[2022-04-10] MEDS: FOLIC ACID/VITAMIN B COMP W-C TABLET PO SCH (09:48)
[2022-04-10] MEDS: FOLIC ACID 1MG TABLET PO SCH (09:48)
[2022-04-10] MEDS: MULTIVITAMINS,THER W-MINERALS TABLET PO SCH (09:49)
[2022-04-10] MEDS: CALCIUM 1250MG TABLET (500MG ELEMENTAL CALCIUM) PO SCH (09:49)
[2022-04-10] MEDS: DOCUSATE SODIUM 250MG CAPSULE PO SCH (09:49)
[2022-04-10] MEDS: APIXABAN 5 MG TABLET PO SCH ×2 (09:49→17:08)
[2022-04-10 11:19] LABS: HEMATOCRIT. 22.7 % (36.0-48.0); MEAN CORPUSCULAR HEMOGLOBIN 31.8 pg (28.0-32.0); MEAN CORPUSCULAR VOLUME 90.3 fL (81.0-99.0); MEAN PLATELET VOLUME 7.7 fl (7.4-10.4); PLATELET 314 x1000/uL (130-400); RED BLOOD CELL COUNT 2.52 mill/uL (4.2-5.4); RED CELL DISTRIBUTION WIDTH 19.7 % (11.6-14.6)
[2022-04-10] MEDS: MORPHINE SULFATE 15MG TABLET SR PO SCH ×2 (11:43→17:08)
[2022-04-10 12:00] VITALS: BP 128/77
[2022-04-10 16:00] VITALS: BP 142/89
[2022-04-10 20:00] VITALS: BP 116/68
[2022-04-10] MEDS: MORPHINE SULFATE 4 MG/ML CPJ (NOT FOR IM USE) IV PRN (20:17)
[2022-04-10 21:41] LABS: NUCLEATED RED BLOOD CELLS 20 /100 WBC; PLATELET ESTIMATE NORMAL
[2022-04-11] VITALS: BP 104/66
[2022-04-11] MEDS: HYDROMORPHONE HCL/PF 2MG/ML CPJ IV PRN ×3 (01:34→20:50)
[2022-04-11] MEDS: MORPHINE SULFATE 15MG TABLET SR PO SCH ×3 (01:35→18:48)
[2022-04-11] MEDS: FUROSEMIDE 40MG/4ML VIAL IVP SCH (09:00)
[2022-04-11] MEDS: METOPROLOL TARTRATE 50MG TABLET PO SCH ×2 (10:24→21:00)
[2022-04-11] MEDS ORDERED: HYDROMORPHONE HCL/PF 2MG/ML CPJ IV NR (11:30)
[2022-04-11] MEDS ORDERED: MORPHINE SULFATE 15MG TABLET SR PO NR (11:30)
[2022-04-11 12:00] VITALS: BP 113/61
[2022-04-11 13:24] LABS: HEMATOCRIT. 22.5 % (36.0-48.0); HEMOGLOBIN. 7.8 g/dL (12.0-16.0); MEAN CORPUSCULAR HEMOGLOBIN 32.1 pg (28.0-32.0); MEAN PLATELET VOLUME 8.2 fl (7.4-10.4); PLATELET 286 x1000/uL (130-400); RED BLOOD CELL COUNT 2.44 mill/uL (4.2-5.4); RED CELL DISTRIBUTION WIDTH 19.9 % (11.6-14.6)
[2022-04-11 16:00] VITALS: BP 118/68
[2022-04-11 17:32] LABS: NUCLEATED RED BLOOD CELLS 44 /100 WBC
[2022-04-11 17:33] LABS: PLATELET ESTIMATE NORMAL
[2022-04-11] MEDS: APIXABAN 5 MG TABLET PO SCH (18:49)
[2022-04-11 20:00] VITALS: BP 103/65
[2022-04-11] MEDS: SACUBITRIL/VALSARTAN 24MG/26MG TABLET PO SCH (22:04)
[2022-04-11] MEDS: NYSTATIN/TRIAMCIN CREAM 15GM TOP SCH (22:10)
[2022-04-12] VITALS (7 sets, daily range): BP systolic 106–154; BP diastolic 53–86
[2022-04-12] MEDS: MORPHINE SULFATE 15MG TABLET SR PO SCH ×3 (03:10→18:03)
[2022-04-12] MEDS: HYDROMORPHONE HCL/PF 2MG/ML CPJ IV PRN ×3 (04:06→20:15)
[2022-04-12] MEDS: METOPROLOL TARTRATE 50MG TABLET PO SCH ×2 (09:00→21:00)
[2022-04-12] MEDS: FUROSEMIDE 40MG/4ML VIAL IVP SCH (09:00)
[2022-04-12] MEDS ORDERED: SODIUM CHLORIDE 0.45% 1,000 ML IV SCH (09:15)
[2022-04-12] MEDS: APIXABAN 5 MG TABLET PO SCH ×2 (10:05→17:59)
[2022-04-12] MEDS: DOCUSATE SODIUM 250MG CAPSULE PO SCH ×2 (10:05→10:10)
[2022-04-12] MEDS: FOLIC ACID/VITAMIN B COMP W-C TABLET PO SCH ×2 (10:05→10:12)
[2022-04-12] MEDS: MULTIVITAMINS,THER W-MINERALS TABLET PO SCH ×2 (10:06→10:12)
[2022-04-12] MEDS: POTASSIUM CHLORIDE 10MEQ TABLET SR PO SCH ×2 (10:06→10:10)
[2022-04-12] MEDS: CALCIUM 1250MG TABLET (500MG ELEMENTAL CALCIUM) PO SCH ×2 (10:06→10:11)
[2022-04-12] MEDS: FOLIC ACID 1MG TABLET PO SCH ×2 (10:07→10:10)
[2022-04-12] MEDS: NYSTATIN/TRIAMCIN CREAM 15GM TOP SCH ×2 (14:07→20:38)
[2022-04-12] MEDS: SACUBITRIL/VALSARTAN 24MG/26MG TABLET PO SCH ×2 (14:07→20:34)
[2022-04-19] MEDS ORDERED: FOLI-43 PO (00:10)
[2022-04-19] MEDS ORDERED: ACET-2708 PO (00:10)
[2022-04-27] MEDS ORDERED: NEPVIT PO (09:18)
[2022-04-27] MEDS ORDERED: POTA-189 PO (09:18)
[2022-04-27] MEDS ORDERED: CALC-26 PO (09:18)
[2022-04-27] MEDS ORDERED: TCNYC15 TOP (09:18)
[2022-04-27] MEDS ORDERED: APIX2.5T PO (09:18)
[2022-04-27] MEDS ORDERED: METO25TA6 PO (09:18)
[2022-04-27] MEDS ORDERED: DILT60TA35 PO (09:18)
[2022-04-27] MEDS ORDERED: DOCU250C14 PO (09:18)
[2022-04-27] MEDS ORDERED: FOLI-43 PO (09:18)
[2022-04-27] MEDS ORDERED: FURO10VI3 IVP (09:18)
== END 2022-04-12 21:40 | DRG 812 ==
LOC: ER 17:05 → MICUSO 20:38 → 7WST 04-09 04:51
PROVIDERS: ADMIT Internal Medicine Geriatric Medicine; ATTEND Internal Medicine Geriatric Medicine
PROC: 30233N1 Transfusion of Nonautologous Red Blood Cells into Peripheral Vein, Percutaneous Approach (ICD-10-PCS; 2022-04-09)
PROC: 5A09357 Assistance with Respiratory Ventilation, Less than 24 Consecutive Hours, Continuous Positive Airway Pressure (ICD-10-PCS; principal; 2022-04-12)
DX: D57.00 Hb-SS disease with crisis, unspecified (principal); I13.0 Hypertensive heart and chronic kidney disease with heart failure and stage 1 through stage 4 chronic kidney disease, or unspecified chronic kidney disease; I48.20 Chronic atrial fibrillation, unspecified; N17.9 Acute kidney failure, unspecified; I50.22 Chronic systolic (congestive) heart failure; L97.929 Non-pressure chronic ulcer of unspecified part of left lower leg with unspecified severity; R65.10 Systemic inflammatory response syndrome (SIRS) of non-infectious origin without acute organ dysfunction; E86.0 Dehydration; E78.00 Pure hypercholesterolemia, unspecified; I27.29 Other secondary pulmonary hypertension; M81.0 Age-related osteoporosis without current pathological fracture; I25.10 Atherosclerotic heart disease of native coronary artery without angina pectoris; N18.9 Chronic kidney disease, unspecified; G89.4 Chronic pain syndrome; E87.5 Hyperkalemia; E78.5 Hyperlipidemia, unspecified; B35.4 Tinea corporis; R74.01 Elevation of levels of liver transaminase levels; R73.9 Hyperglycemia, unspecified; I08.3 Combined rheumatic disorders of mitral, aortic and tricuspid valves; Z79.899 Other long term (current) drug therapy; Z86.73 Personal history of transient ischemic attack (TIA), and cerebral infarction without residual deficits; Z90.49 Acquired absence of other specified parts of digestive tract
CPT/HCPCS: 36415; 71045; 80048; 80053; 81003; 82247; 83036; 83880; 84484; 85025; 85044; 86850; 86870; 86900; 86920; 93005; 97162; 99285; C1893; J0885; J1170; J1940; J2270; J2405; J7030; P9016

== ENCOUNTER 2022-04-12 21:45 | Inpatient (IN) | payer MEDICARE ==
[~2022-04-12] VITALS: Ht 157.5 cm; Wt 59.4 kg
[~2022-04-12 21:45] MED LIST changes: -BACL-141 PO; +HYDR-4001 PO; +MORP10SO PO; -MORP30TA66 MT; -MSCON30 PO; -TOPUD MT
[2022-04-12 21:50] VITALS: BP 112/73
[2022-04-12] MEDS ORDERED: MAGNESIUM/ALUMINUM HYDROXIDE/SIMETHICONE 30ML UDC PO PRN (23:30)
[2022-04-12] MEDS ORDERED: MORPHINE SULFATE 4 MG/ML CPJ (NOT FOR IM USE) IV PRN (23:30)
[2022-04-12] MEDS ORDERED: ZOLPIDEM TARTRATE 5MG TABLET PO PRN (23:30)
[2022-04-12] MEDS ORDERED: ACETAMINOPHEN 650MG/20.3ML UDC PO PRN (23:30)
[2022-04-12] MEDS ORDERED: CLONIDINE 0.1MG TABLET PO PRN (23:30)
[2022-04-12] MEDS ORDERED: ONDANSETRON HCL 4MG/2ML INJ IV PRN (23:30)
[2022-04-12] MEDS ORDERED: NALOXONE HCL 0.4 MG/ML 1ML VIAL IV PRN (23:30)
[2022-04-12] MEDS ORDERED: IPRATROPIUM/ALBUTEROL 0.5-3(2.5)MG/3ML NEB HHN PRN (23:30)
[2022-04-13] VITALS: BP 112/73
[2022-04-13] MEDS ORDERED: MORPHINE SULFATE 2 MG/ML CPJ (NOT FOR IM USE) IV PRN (00:30)
[2022-04-13] MEDS: SODIUM CHLORIDE 0.45% 1,000 ML IV SCH ×2 (01:43→13:04)
[2022-04-13] MEDS: HYDROMORPHONE HCL/PF 2MG/ML CPJ IV PRN ×4 (04:03→23:43)
[2022-04-13 06:45] LABS: HEMATOCRIT. 25.7 % (36.0-48.0); HEMOGLOBIN. 8.4 g/dL (12.0-16.0); MEAN CORPUSCULAR HEMOGLOBIN 32.5 pg (28.0-32.0); MEAN CORPUSCULAR VOLUME 98.7 fL (81.0-99.0); MEAN PLATELET VOLUME 8.2 fl (7.4-10.4); PLATELET 298 x1000/uL (130-400); RED CELL DISTRIBUTION WIDTH 21.6 % (11.6-14.6)
[2022-04-13] MEDS: NYSTATIN/TRIAMCIN CREAM 15GM TOP SCH ×3 (06:50→21:57)
[2022-04-13 06:54] LABS: CHLORIDE 107 mEq/L (98-107)
[2022-04-13] MEDS: MORPHINE SULFATE 15MG TABLET SR PO SCH ×3 (06:57→21:49)
[2022-04-13 08:00] VITALS: BP 126/70
[2022-04-13] MEDS ORDERED: POTASSIUM CHLORIDE 10MEQ TABLET SR PO SCH (09:00)
[2022-04-13] MEDS ORDERED: FUROSEMIDE 40MG/4ML VIAL IVP SCH (09:00)
[2022-04-13] MEDS: FOLIC ACID/VITAMIN B COMP W-C TABLET PO SCH (09:37)
[2022-04-13] MEDS: CILOSTAZOL 50 MG TABLET PO SCH ×2 (09:38→21:22)
[2022-04-13] MEDS: FOLIC ACID 1MG TABLET PO SCH (09:38)
[2022-04-13] MEDS: APIXABAN 5 MG TABLET PO SCH ×2 (09:38→17:19)
[2022-04-13] MEDS: CALCIUM 1250MG TABLET (500MG ELEMENTAL CALCIUM) PO SCH (09:39)
[2022-04-13] MEDS: DOCUSATE SODIUM 250MG CAPSULE PO SCH (09:39)
[2022-04-13] MEDS: METOPROLOL TARTRATE 50MG TABLET PO SCH ×2 (09:40→09:50)
[2022-04-13] MEDS: MULTIVITAMINS,THER W-MINERALS TABLET PO SCH (09:49)
[2022-04-13 11:53] LABS: NUCLEATED RED BLOOD CELLS 449 /100 WBC
[2022-04-13 11:54] LABS: PLATELET ESTIMATE NORMAL
[2022-04-13 20:00] VITALS: BP 112/73
[2022-04-14] MEDS: SODIUM CHLORIDE 0.45% 1,000 ML IV SCH (02:10)
[2022-04-14] MEDS: MORPHINE SULFATE 15MG TABLET SR PO SCH (05:21)
[2022-04-14] MEDS: NYSTATIN/TRIAMCIN CREAM 15GM TOP SCH (05:30)
[2022-04-14 07:06] LABS: BASOPHILS % 1.1 % (0.0-2.0); EOSINOPHILS % 7.5 % (0.0-5.0); HEMATOCRIT. 23.8 % (36.0-48.0); HEMOGLOBIN. 8.1 g/dL (12.0-16.0); LYMPHOCYTES % 29.8 % (20.0-50.0); MEAN CORPUSCULAR HEMOGLOBIN 33.4 pg (28.0-32.0); MEAN PLATELET VOLUME 8.3 fl (7.4-10.4); NEUTROPHILS % 47.6 % (40.0-76.0); PLATELET 228 x1000/uL (130-400); RED BLOOD CELL COUNT 2.42 mill/uL (4.2-5.4)
[2022-04-14 07:11] LABS: CHLORIDE 100 mEq/L (98-107)
[2022-04-14] MEDS: HYDROMORPHONE HCL/PF 2MG/ML CPJ IV PRN (07:24)
[2022-04-14 07:45] LABS: RED CELL DISTRIBUTION WIDTH 28.3 % (11.6-14.6)
[2022-04-14 08:00] VITALS: BP 129/78
[2022-04-14] MEDS: CILOSTAZOL 50 MG TABLET PO SCH (09:00)
[2022-04-14] MEDS: DOCUSATE SODIUM 250MG CAPSULE PO SCH (10:34)
[2022-04-14] MEDS: FOLIC ACID/VITAMIN B COMP W-C TABLET PO SCH (10:35)
[2022-04-14] MEDS: METOPROLOL TARTRATE 50MG TABLET PO SCH (10:35)
[2022-04-14] MEDS: CALCIUM 1250MG TABLET (500MG ELEMENTAL CALCIUM) PO SCH (10:35)
[2022-04-14] MEDS: FOLIC ACID 1MG TABLET PO SCH (10:36)
[2022-04-14] MEDS: MULTIVITAMINS,THER W-MINERALS TABLET PO SCH (10:37)
[2022-04-14] MEDS: APIXABAN 5 MG TABLET PO SCH (10:37)
[2022-04-14] MEDS ORDERED: DILTIAZEM HCL 125 MG in DEXT 5% WATER 100 ML IV SCH (11:15)
[2022-04-14 11:41] VITALS: BP 129/78
[2022-04-14] MEDS ORDERED: METOPROLOL SUCCINATE 50MG ER TABLET PO ONE (12:30)
[2022-04-14] MEDS ORDERED: DILTIAZEM HCL 5MG/ML 5ML VIAL IV NR (13:00)
[2022-04-14] MEDS ORDERED: METOPROLOL TARTRATE 50MG TABLET PO SCH (21:00)
[2022-04-16] MEDS ORDERED: ERGOCALCIFEROL 50000UNITS CAPSULE PO SCH (09:00)
== END 2022-04-14 12:33 | disposition short-term general hospital (02) | DRG 553 ==
PROVIDERS: ADMIT Psychiatry & Neurology Neurology; ATTEND Internal Medicine Geriatric Medicine
DX: M13.0 Polyarthritis, unspecified (principal); D57.00 Hb-SS disease with crisis, unspecified; I48.20 Chronic atrial fibrillation, unspecified; L97.929 Non-pressure chronic ulcer of unspecified part of left lower leg with unspecified severity; I50.22 Chronic systolic (congestive) heart failure; N17.9 Acute kidney failure, unspecified; I13.0 Hypertensive heart and chronic kidney disease with heart failure and stage 1 through stage 4 chronic kidney disease, or unspecified chronic kidney disease; I48.92 Unspecified atrial flutter; I69.354 Hemiplegia and hemiparesis following cerebral infarction affecting left non-dominant side; R53.81 Other malaise; B35.4 Tinea corporis; G89.4 Chronic pain syndrome; R74.01 Elevation of levels of liver transaminase levels; R73.9 Hyperglycemia, unspecified; N18.1 Chronic kidney disease, stage 1; I34.0 Nonrheumatic mitral (valve) insufficiency; E87.5 Hyperkalemia; R00.0 Tachycardia, unspecified; Z91.81 History of falling; Z79.01 Long term (current) use of anticoagulants; Z82.61 Family history of arthritis; Z90.49 Acquired absence of other specified parts of digestive tract
CPT/HCPCS: 36415; 80048; 85025; 93005; 97110; 97162; 97166; 97530; 97535; C1893; J1170; J1940; J2270; J3490

== ENCOUNTER 2022-04-14 12:54 | Inpatient (IN) | payer MEDICARE ==
[~2022-04-14] VITALS: Ht 157.5 cm; Wt 57.6 kg
[2022-04-14] VITALS (7 sets, daily range): BP systolic 99–131; BP diastolic 52–83
[2022-04-14] MEDS ORDERED: IPRATROPIUM/ALBUTEROL 0.5-3(2.5)MG/3ML NEB HHN PRN (14:00)
[2022-04-14] MEDS ORDERED: DOCUSATE SODIUM 250MG CAPSULE PO PRN (14:00)
[2022-04-14] MEDS ORDERED: ONDANSETRON HCL 4MG/2ML INJ IV PRN (14:15)
[2022-04-14] MEDS ORDERED: CLONIDINE 0.1MG TABLET PO PRN (14:15)
[2022-04-14] MEDS ORDERED: DILTIAZEM HCL 5MG/ML 5ML VIAL IV NR (14:30)
[2022-04-14] MEDS ORDERED: NALOXONE HCL 0.4MG/ML VIAL IV PRN (14:30)
[2022-04-14] MEDS: HYDROMORPHONE HCL/PF 2MG/ML CPJ IV PRN ×2 (14:30→20:41)
[2022-04-14] MEDS ORDERED: DILTIAZEM HCL 125 MG in DEXT 5% WATER 100 ML IV SCH (15:00)
[2022-04-14] MEDS: APIXABAN 5 MG TABLET PO SCH (16:24)
[2022-04-14] MEDS ORDERED: SACUBITRIL/VALSARTAN 24MG/26MG TABLET PO SCH (17:00)
[2022-04-14] MEDS: ENTRESTO 24MG/26MG TABLET PO SCH (17:56)
[2022-04-14] MEDS ORDERED: NON FORMULARY PATIENT HOME MED PO SCH (20:00)
[2022-04-14] MEDS: METOPROLOL TARTRATE 50MG TABLET PO SCH ×2 (20:40→21:00)
[2022-04-14] MEDS: CILOSTAZOL 50 MG TABLET PO SCH (20:40)
[2022-04-14] MEDS ORDERED: ZOLPIDEM TARTRATE 5MG TABLET PO PRN (21:00)
[2022-04-14] MEDS: MORPHINE SULFATE 15MG TABLET SR PO SCH (21:00)
[2022-04-14] MEDS ORDERED: MORPHINE SULFATE 15MG TABLET SR PO SCH (21:00)
[2022-04-15] VITALS (19 sets, daily range): BP systolic 83–117; BP diastolic 46–76
[2022-04-15] MEDS: HYDROMORPHONE HCL/PF 2MG/ML CPJ IV PRN ×3 (03:29→18:10)
[2022-04-15 06:57] LABS: HEMATOCRIT 21.4 % (36.0-48.0); HEMOGLOBIN 7.3 g/dL (12.0-16.0); MEAN CORPUSCULAR HEMOGLOBIN 33.5 pg (28.0-32.0); PLATELET 205 x1000/uL (130-400); RED BLOOD CELL COUNT 2.19 mill/uL (4.2-5.4); RED CELL DISTRIBUTION WIDTH 28.3 % (11.6-14.6)
[2022-04-15 07:10] LABS: CHLORIDE 102 mEq/L (98-107)
[2022-04-15 07:17] LABS: PHOSPHORUS 2.8 mg/dL (2.5-4.9)
[2022-04-15] MEDS: MORPHINE SULFATE 15MG TABLET SR PO SCH ×3 (07:19→21:30)
[2022-04-15] MEDS ORDERED: LIDOCAINE HCL 1% 30ML VIAL (10MG/ML) ONE (07:50)
[2022-04-15] MEDS: FUROSEMIDE 40MG/4ML VIAL IVP SCH ×2 (08:59→09:03)
[2022-04-15] MEDS: ENTRESTO 24MG/26MG TABLET PO SCH ×2 (08:59→17:55)
[2022-04-15] MEDS: CALCIUM 1250MG TABLET (500MG ELEMENTAL CALCIUM) PO SCH (08:59)
[2022-04-15] MEDS: POTASSIUM CHLORIDE 10MEQ TABLET SR PO SCH (09:00)
[2022-04-15] MEDS: CILOSTAZOL 50 MG TABLET PO SCH (09:00)
[2022-04-15] MEDS: DOCUSATE SODIUM 250MG CAPSULE PO SCH (09:00)
[2022-04-15] MEDS: FOLIC ACID/VITAMIN B COMP W-C TABLET PO SCH (09:00)
[2022-04-15] MEDS: METOPROLOL TARTRATE 50MG TABLET PO SCH ×2 (09:01→21:00)
[2022-04-15] MEDS: FOLIC ACID 1MG TABLET PO SCH (09:01)
[2022-04-15] MEDS: APIXABAN 5 MG TABLET PO SCH (09:01)
[2022-04-15] MEDS: MULTIVITAMINS,THER W-MINERALS TABLET PO SCH (09:01)
[2022-04-15] MEDS: MORPHINE SULFATE 4 MG/ML CPJ (NOT FOR IM USE) IV PRN (09:02)
[2022-04-15] MEDS ORDERED: LACTULOSE 20G/30ML UDC PO NR (10:00)
[2022-04-15] MEDS: DILTIAZEM 125MG/125ML PMX 125 ML IV SCH (10:03)
[2022-04-15] MEDS ORDERED: DILTIAZEM 125MG/125ML PMX 125 ML IV SCH (11:28)
[2022-04-15] MEDS ORDERED: POTASSIUM CHLORIDE 20MEQ/PACKET PO NR (11:45)
[2022-04-15] MEDS: NYSTATIN/TRIAMCIN CREAM 15GM TOP SCH ×2 (13:43→17:55)
[2022-04-16] VITALS (16 sets, daily range): BP systolic 92–132; BP diastolic 54–82
[2022-04-16] MEDS: HYDROMORPHONE HCL/PF 2MG/ML CPJ IV PRN ×5 (02:19→18:59)
[2022-04-16] MEDS: DILTIAZEM 125MG/125ML PMX 125 ML IV SCH (04:49)
[2022-04-16] MEDS: MORPHINE SULFATE 15MG TABLET SR PO SCH ×3 (05:13→21:06)
[2022-04-16] MEDS: NYSTATIN/TRIAMCIN CREAM 15GM TOP SCH ×4 (09:00→17:50)
[2022-04-16] MEDS ORDERED: ERGOCALCIFEROL 50000UNITS CAPSULE PO SCH (09:00)
[2022-04-16] MEDS: POTASSIUM CHLORIDE 10MEQ TABLET SR PO SCH (09:00)
[2022-04-16] MEDS: FUROSEMIDE 40MG/4ML VIAL IVP SCH (10:15)
[2022-04-16] MEDS: CALCIUM 1250MG TABLET (500MG ELEMENTAL CALCIUM) PO SCH (10:17)
[2022-04-16] MEDS: FOLIC ACID/VITAMIN B COMP W-C TABLET PO SCH (10:17)
[2022-04-16] MEDS: DOCUSATE SODIUM 250MG CAPSULE PO SCH (10:17)
[2022-04-16] MEDS: FOLIC ACID 1MG TABLET PO SCH (10:18)
[2022-04-16 10:25] LABS: HEMATOCRIT. 23.3 % (36.0-48.0); HEMOGLOBIN. 8.1 g/dL (12.0-16.0); MEAN CORPUSCULAR HEMOGLOBIN 33.3 pg (28.0-32.0); MEAN CORPUSCULAR VOLUME 95.7 fL (81.0-99.0); MEAN PLATELET VOLUME 8.4 fl (7.4-10.4); PLATELET 190 x1000/uL (130-400); RED BLOOD CELL COUNT 2.43 mill/uL (4.2-5.4); RED CELL DISTRIBUTION WIDTH 26.1 % (11.6-14.6)
[2022-04-16 10:37] LABS: CHLORIDE 107 mEq/L (98-107)
[2022-04-16] MEDS: MULTIVITAMINS,THER W-MINERALS TABLET PO SCH (10:58)
[2022-04-16] MEDS: METOPROLOL TARTRATE 50MG TABLET PO SCH ×2 (10:58→21:07)
[2022-04-16] MEDS ORDERED: DIGOXIN 500MCG/2ML AMP IV PRN (12:45)
[2022-04-16] MEDS: DILTIAZEM HCL 30MG TABLET PO SCH ×2 (15:16→21:06)
[2022-04-16] MEDS: ENTRESTO 24MG/26MG TABLET PO SCH ×2 (15:17→17:52)
[2022-04-16] MEDS: APIXABAN 2.5 MG TABLET PO SCH (17:51)
[2022-04-16 22:53] LABS: NUCLEATED RED BLOOD CELLS 15 /100 WBC; PLATELET ESTIMATE NORMAL
[2022-04-17] VITALS (13 sets, daily range): BP systolic 102–135; BP diastolic 65–82
[2022-04-17] MEDS: HYDROMORPHONE HCL/PF 2MG/ML CPJ IV PRN ×3 (03:28→23:26)
[2022-04-17] MEDS: MORPHINE SULFATE 15MG TABLET SR PO SCH ×3 (05:09→22:18)
[2022-04-17] MEDS: DILTIAZEM HCL 30MG TABLET PO SCH ×3 (05:09→18:49)
[2022-04-17] MEDS: MORPHINE SULFATE 4 MG/ML CPJ (NOT FOR IM USE) IV PRN (08:26)
[2022-04-17] MEDS: ENTRESTO 24MG/26MG TABLET PO SCH ×2 (09:00→16:51)
[2022-04-17] MEDS: FUROSEMIDE 40MG/4ML VIAL IVP SCH (09:00)
[2022-04-17] MEDS: METOPROLOL TARTRATE 50MG TABLET PO SCH ×2 (09:08→21:59)
[2022-04-17] MEDS: APIXABAN 2.5 MG TABLET PO SCH ×2 (09:08→16:50)
[2022-04-17] MEDS: DOCUSATE SODIUM 250MG CAPSULE PO SCH (09:09)
[2022-04-17] MEDS: MULTIVITAMINS,THER W-MINERALS TABLET PO SCH (09:15)
[2022-04-17] MEDS: CALCIUM 1250MG TABLET (500MG ELEMENTAL CALCIUM) PO SCH (09:15)
[2022-04-17] MEDS: FOLIC ACID 1MG TABLET PO SCH (09:16)
[2022-04-17] MEDS: POTASSIUM CHLORIDE 10MEQ TABLET SR PO SCH (09:16)
[2022-04-17] MEDS ORDERED: EPOETIN ALFA-EPBX 4,000 UNIT/ML VIAL SUBCUT SCH (10:00)
[2022-04-17] MEDS ORDERED: EPOETIN ALFA 10000UNITS/ML VIAL SUBCUT SCH (10:00)
[2022-04-17] MEDS: FOLIC ACID/VITAMIN B COMP W-C TABLET PO SCH (11:06)
[2022-04-17] MEDS: NYSTATIN/TRIAMCIN CREAM 15GM TOP SCH ×2 (13:22→16:50)
[2022-04-18] VITALS (15 sets, daily range): BP systolic 103–141; BP diastolic 62–83
[2022-04-18] MEDS: DILTIAZEM HCL 30MG TABLET PO SCH ×4 (00:37→18:21)
[2022-04-18] MEDS: MORPHINE SULFATE 4 MG/ML CPJ (NOT FOR IM USE) IV PRN ×2 (05:31→18:18)
[2022-04-18] MEDS: MORPHINE SULFATE 15MG TABLET SR PO SCH ×3 (06:00→22:26)
[2022-04-18 06:04] LABS: CHLORIDE 106 mEq/L (98-107)
[2022-04-18 06:12] LABS: BASOPHILS % 0.7 % (0.0-2.0); EOSINOPHILS % 12.5 % (0.0-5.0); HEMATOCRIT. 23.6 % (36.0-48.0); HEMOGLOBIN. 8.1 g/dL (12.0-16.0); LYMPHOCYTES % 27.5 % (20.0-50.0); MEAN CORPUSCULAR HEMOGLOBIN 32.8 pg (28.0-32.0); MEAN PLATELET VOLUME 9.1 fl (7.4-10.4); NEUTROPHILS % 46.3 % (40.0-76.0); PLATELET 229 x1000/uL (130-400); RED BLOOD CELL COUNT 2.48 mill/uL (4.2-5.4); RED CELL DISTRIBUTION WIDTH 24.1 % (11.6-14.6)
[2022-04-18] MEDS: DOCUSATE SODIUM 250MG CAPSULE PO SCH (09:32)
[2022-04-18] MEDS: FOLIC ACID/VITAMIN B COMP W-C TABLET PO SCH (09:33)
[2022-04-18] MEDS: NYSTATIN/TRIAMCIN CREAM 15GM TOP SCH ×3 (09:33→18:18)
[2022-04-18] MEDS: CALCIUM 1250MG TABLET (500MG ELEMENTAL CALCIUM) PO SCH (09:33)
[2022-04-18] MEDS: POTASSIUM CHLORIDE 10MEQ TABLET SR PO SCH (09:33)
[2022-04-18] MEDS: MULTIVITAMINS,THER W-MINERALS TABLET PO SCH (09:33)
[2022-04-18] MEDS: ENTRESTO 24MG/26MG TABLET PO SCH ×2 (09:33→18:18)
[2022-04-18] MEDS: APIXABAN 2.5 MG TABLET PO SCH ×2 (09:33→18:18)
[2022-04-18] MEDS: FOLIC ACID 1MG TABLET PO SCH (09:33)
[2022-04-18] MEDS: METOPROLOL TARTRATE 50MG TABLET PO SCH ×2 (09:33→20:41)
[2022-04-18] MEDS: FUROSEMIDE 40MG/4ML VIAL IVP SCH (09:34)
[2022-04-18] MEDS: HYDROMORPHONE HCL/PF 2MG/ML CPJ IV PRN ×2 (10:12→20:42)
[2022-04-19] MEDS ORDERED: FOLI-43 PO (00:10)
[2022-04-19] MEDS ORDERED: ACET-2708 PO (00:10)
== END 2022-04-18 22:39 | DRG 308 ==
LOC: 5EST 12:54
PROVIDERS: ADMIT Internal Medicine Geriatric Medicine; ATTEND Internal Medicine Geriatric Medicine
PROC: 05HY33Z Insertion of Infusion Device into Upper Vein, Percutaneous Approach (ICD-10-PCS; 2022-04-15)
PROC: 30233N1 Transfusion of Nonautologous Red Blood Cells into Peripheral Vein, Percutaneous Approach (ICD-10-PCS; principal; 2022-04-16)
DX: I48.20 Chronic atrial fibrillation, unspecified (principal); D57.00 Hb-SS disease with crisis, unspecified; I13.0 Hypertensive heart and chronic kidney disease with heart failure and stage 1 through stage 4 chronic kidney disease, or unspecified chronic kidney disease; I50.22 Chronic systolic (congestive) heart failure; L97.929 Non-pressure chronic ulcer of unspecified part of left lower leg with unspecified severity; N17.9 Acute kidney failure, unspecified; M87.9 Osteonecrosis, unspecified; E44.0 Moderate protein-calorie malnutrition; I69.354 Hemiplegia and hemiparesis following cerebral infarction affecting left non-dominant side; R17 Unspecified jaundice; I48.92 Unspecified atrial flutter; B35.4 Tinea corporis; I27.20 Pulmonary hypertension, unspecified; E87.5 Hyperkalemia; D63.1 Anemia in chronic kidney disease; I34.0 Nonrheumatic mitral (valve) insufficiency; N18.1 Chronic kidney disease, stage 1; G89.4 Chronic pain syndrome; E80.6 Other disorders of bilirubin metabolism; M75.02 Adhesive capsulitis of left shoulder; M75.01 Adhesive capsulitis of right shoulder; E87.6 Hypokalemia; M13.0 Polyarthritis, unspecified; R74.01 Elevation of levels of liver transaminase levels; Z68.23 Body mass index [BMI] 23.0-23.9, adult; Z90.49 Acquired absence of other specified parts of digestive tract; Z79.01 Long term (current) use of anticoagulants; Z79.899 Other long term (current) drug therapy; R73.9 Hyperglycemia, unspecified
CPT/HCPCS: 36415; 36573; 71045; 80048; 80053; 82248; 83735; 84100; 85025; 85027; 86850; 86870; 86900; 86920; 93005; 93306; 97162; 97166; 97530; C1725; J0885; J1170; J1940; J2270; J3490; J7060; P9016

== ENCOUNTER 2022-07-27 15:19 | Emergency (ER) | payer OTHER, MEDICARE ==
[~2022-07-27] VITALS: Ht 165.1 cm; Wt 75.0 kg
[~2022-07-27 15:19] MED LIST changes: +ACET-2708 PO; +APIX2.5T PO; +CALC-26 PO; +DILT60TA35 PO; +DOCU250C14 PO; +FOLI-43 PO; -FURO40TA5 PO; -HYDR-4001 PO; -METO-539 PO; +METO25TA6 PO; -MORP10SO PO; +NEPVIT PO; +NYST15CR36 TOP; +POTA-189 PO; -POTA10CA42 PO; +PRED10TA23 PO
[2022-07-27 15:41] VITALS: BP 107/59
== END 2022-07-28 01:59 | disposition left against medical advice (07) ==
LOC: ER 15:19
DX: Z53.21 Procedure and treatment not carried out due to patient leaving prior to being seen by health care provider (principal)

== ENCOUNTER 2022-07-30 15:50 | Inpatient (IN) | payer MEDICARE ==
[~2022-07-30] VITALS: Ht 170.2 cm; Wt 58.5 kg
[2022-07-30] MEDS ORDERED: MORPHINE SULFATE 4 MG/ML CPJ (NOT FOR IM USE) IV ONE (23:45)
[2022-07-30] MEDS ORDERED: SODIUM CHLORIDE 0.9% 1,000 ML IV ONE (23:45)
[2022-07-30] MEDS ORDERED: ONDANSETRON HCL 4MG/2ML INJ IV ONE (23:45)
[2022-07-31 01:43] LABS: MEAN CORPUSCULAR VOLUME 99.7 fL (81.0-99.0); MEAN PLATELET VOLUME 7.1 fl (7.4-10.4); PLATELET 406 x1000/uL (130-400); RED BLOOD CELL COUNT 1.96 mill/uL (4.2-5.4); RED CELL DISTRIBUTION WIDTH 28.9 % (11.6-14.6)
[2022-07-31 01:49] LABS: HEMATOCRIT. 19.5 % (36.0-48.0); HEMOGLOBIN. 6.8 g/dL (12.0-16.0)
[2022-07-31 02:44] LABS: NUCLEATED RED BLOOD CELLS 3 /100 WBC; PLATELET ESTIMATE NORMAL
[2022-07-31] MEDS ORDERED: ENOXAPARIN 40MG/0.4ML SYR SUBCUT SCH (10:45)
[2022-07-31] MEDS ORDERED: ACETAMINOPHEN 650MG/20.3ML UDC GT PRN (10:45)
[2022-07-31] MEDS ORDERED: APIXABAN 5 MG TABLET PO SCH (11:15)
[2022-07-31] MEDS: SODIUM CHLORIDE 0.9% 1,000 ML IV SCH ×2 (11:38→21:20)
[2022-07-31] MEDS: MORPHINE SULFATE 2 MG/ML CPJ (NOT FOR IM USE) IV PRN ×2 (11:54→18:34)
[2022-07-31 12:43] VITALS: BP_SYST 122; BP_DIAS 60; BP_DIAS 61
[2022-07-31] MEDS: FOLIC ACID 1MG TABLET PO SCH (14:04)
[2022-07-31] MEDS ORDERED: SACU1TAB MT (14:15)
[2022-07-31] MEDS ORDERED: FURO-151 MT (14:15)
[2022-07-31] MEDS ORDERED: NALOXONE HCL 0.4MG/ML VIAL IV PRN (14:30)
[2022-07-31 16:00] VITALS: BP 110/61
[2022-07-31] MEDS ORDERED: NITROGLYCERIN 0.4MG TABLET SL SL PRN (16:15)
[2022-07-31] MEDS: FAMOTIDINE 20MG TABLET PO SCH (18:34)
[2022-07-31] MEDS ORDERED: ACETAMINOPHEN 650MG/20.3ML UDC PO PRN (18:45)
[2022-07-31 20:00] VITALS: BP 123/64
[2022-07-31] MEDS: METOPROLOL TARTRATE 25MG TABLET PO SCH ×2 (21:00→21:21)
[2022-07-31] MEDS: DILTIAZEM HCL 60MG TABLET PO SCH ×2 (21:21→21:26)
[2022-07-31 21:44] LABS: CHLORIDE 105 mEq/L (98-107)
[2022-07-31 21:54] LABS: HEMOGLOBIN 7.4 g/dL (12.0-16.0)
[2022-07-31 22:21] LABS: HEMATOCRIT 20.9 % (36.0-48.0)
[2022-08-01] VITALS (12 sets, daily range): BP systolic 107–145; BP diastolic 15–73
[2022-08-01] MEDS: MORPHINE SULFATE 2 MG/ML CPJ (NOT FOR IM USE) IV PRN ×4 (00:06→20:13)
[2022-08-01] MEDS: DILTIAZEM HCL 60MG TABLET PO SCH ×3 (05:38→21:02)
[2022-08-01 07:56] LABS: BASOPHILS % 1.4 % (0.0-2.0); EOSINOPHILS % 14.2 % (0.0-5.0); MEAN CORPUSCULAR HEMOGLOBIN 35.3 pg (28.0-32.0); MEAN CORPUSCULAR VOLUME 99.2 fL (81.0-99.0); MEAN PLATELET VOLUME 7.6 fl (7.4-10.4); MONOCYTES % 7.5 % (2.0-8.0); NEUTROPHILS % 46.9 % (40.0-76.0); PLATELET 382 x1000/uL (130-400); RED BLOOD CELL COUNT 1.99 mill/uL (4.2-5.4); RED CELL DISTRIBUTION WIDTH 27.5 % (11.6-14.6)
[2022-08-01] MEDS: FOLIC ACID/VITAMIN B COMP W-C TABLET PO SCH (08:30)
[2022-08-01] MEDS: DOCUSATE SODIUM 250MG CAPSULE PO SCH (08:30)
[2022-08-01] MEDS: FOLIC ACID 1MG TABLET PO SCH (08:30)
[2022-08-01] MEDS: CALCIUM 1250MG TABLET (500MG ELEMENTAL CALCIUM) PO SCH (08:30)
[2022-08-01] MEDS: METOPROLOL TARTRATE 25MG TABLET PO SCH ×2 (08:30→20:09)
[2022-08-01] MEDS: FERROUS SULFATE 325MG TABLET PO SCH (08:30)
[2022-08-01] MEDS: FAMOTIDINE 20MG TABLET PO SCH (08:30)
[2022-08-01] MEDS: ACETAMINOPHEN 325MG TABLET PO PRN ×2 (08:32→14:58)
[2022-08-01 08:55] LABS: HEMATOCRIT. 19.8 % (36.0-48.0)
[2022-08-01] MEDS: APIXABAN 2.5 MG TABLET PO SCH ×2 (14:59→16:56)
[2022-08-01 16:04] LABS: CHLORIDE 110 mEq/L (98-107)
[2022-08-01] MEDS ORDERED: ONDANSETRON HCL 4MG/2ML INJ IV PRN (20:30)
[2022-08-01] MEDS ORDERED: DIPHENHYDRAMINE 12.5MG/5ML UDC PO NR (20:30)
[2022-08-01] MEDS: LIDOCAINE 5% PATCH TOP SCH (20:33)
[2022-08-01 21:55] LABS: HEMATOCRIT 24.9 % (36.0-48.0); HEMOGLOBIN 8.6 g/dL (12.0-16.0)
[2022-08-01] MEDS ORDERED: LIDOCAINE HCL 1% 10 MG/ML 10ML VIAL IJ NR (23:15)
[2022-08-02 04:00] VITALS: BP_SYST 106; BP_SYST 108; BP_DIAS 52; BP_DIAS 59
[2022-08-02] MEDS: DILTIAZEM HCL 60MG TABLET PO SCH ×3 (05:10→22:00)
[2022-08-02] MEDS: MORPHINE SULFATE 2 MG/ML CPJ (NOT FOR IM USE) IV PRN ×4 (06:10→23:36)
[2022-08-02 07:36] VITALS: BP 126/61
[2022-08-02 07:36] LABS: HEMATOCRIT. 21.2 % (36.0-48.0); HEMOGLOBIN. 7.4 g/dL (12.0-16.0); MEAN CORPUSCULAR HEMOGLOBIN 33.1 pg (28.0-32.0); MEAN CORPUSCULAR VOLUME 94.5 fL (81.0-99.0); MEAN PLATELET VOLUME 7.8 fl (7.4-10.4); PLATELET 323 x1000/uL (130-400); RED BLOOD CELL COUNT 2.24 mill/uL (4.2-5.4); RED CELL DISTRIBUTION WIDTH 26.2 % (11.6-14.6)
[2022-08-02] MEDS: CALCIUM 1250MG TABLET (500MG ELEMENTAL CALCIUM) PO SCH (08:18)
[2022-08-02] MEDS: FOLIC ACID 1MG TABLET PO SCH (08:18)
[2022-08-02] MEDS: APIXABAN 2.5 MG TABLET PO SCH ×2 (08:18→17:05)
[2022-08-02] MEDS: FOLIC ACID/VITAMIN B COMP W-C TABLET PO SCH (08:18)
[2022-08-02] MEDS: DOCUSATE SODIUM 250MG CAPSULE PO SCH (08:18)
[2022-08-02] MEDS: FERROUS SULFATE 325MG TABLET PO SCH (08:19)
[2022-08-02] MEDS: FAMOTIDINE 20MG TABLET PO SCH (08:19)
[2022-08-02] MEDS: LIDOCAINE 5% PATCH TOP SCH (08:20)
[2022-08-02] MEDS: METOPROLOL TARTRATE 25MG TABLET PO SCH ×2 (08:21→21:59)
[2022-08-02 10:13] LABS: CHLORIDE 110 mEq/L (98-107)
[2022-08-02] MEDS ORDERED: LIDOCAINE HCL 1% 30ML VIAL (10MG/ML) INFIL NR (11:00)
[2022-08-02 12:00] VITALS: BP 133/66
[2022-08-02] MEDS: SODIUM CHLORIDE 0.9% 1,000 ML IV SCH ×2 (12:00→21:59)
[2022-08-02 14:01] LABS: NUCLEATED RED BLOOD CELLS 22 /100 WBC
[2022-08-02 14:02] LABS: PLATELET ESTIMATE NORMAL
[2022-08-02 16:00] VITALS: BP 127/55
[2022-08-02 20:00] VITALS: BP 127/62
[2022-08-03] VITALS: BP 127/65
[2022-08-03 01:05] LABS: HEMATOCRIT 22.2 % (36.0-48.0); HEMOGLOBIN 7.8 g/dL (12.0-16.0)
[2022-08-03 04:00] VITALS: BP 122/60
[2022-08-03] MEDS: DILTIAZEM HCL 60MG TABLET PO SCH ×3 (06:33→22:18)
[2022-08-03 06:38] LABS: HEMOGLOBIN. 7.5 g/dL (12.0-16.0); MEAN CORPUSCULAR HEMOGLOBIN 33.8 pg (28.0-32.0); MEAN CORPUSCULAR VOLUME 93.7 fL (81.0-99.0); MEAN PLATELET VOLUME 7.5 fl (7.4-10.4); PLATELET 305 x1000/uL (130-400); RED BLOOD CELL COUNT 2.22 mill/uL (4.2-5.4); RED CELL DISTRIBUTION WIDTH 25.8 % (11.6-14.6)
[2022-08-03 06:46] LABS: CHLORIDE 112 mEq/L (98-107)
[2022-08-03 06:54] LABS: HEMATOCRIT. 20.8 % (36.0-48.0)
[2022-08-03 07:53] VITALS: BP 119/58
[2022-08-03] MEDS: SODIUM CHLORIDE 0.9% 1,000 ML IV SCH (08:00)
[2022-08-03] MEDS: FOLIC ACID 1MG TABLET PO SCH (08:22)
[2022-08-03] MEDS: APIXABAN 2.5 MG TABLET PO SCH ×2 (08:22→17:25)
[2022-08-03] MEDS: FOLIC ACID/VITAMIN B COMP W-C TABLET PO SCH (08:22)
[2022-08-03] MEDS: CALCIUM 1250MG TABLET (500MG ELEMENTAL CALCIUM) PO SCH (08:22)
[2022-08-03] MEDS: FAMOTIDINE 20MG TABLET PO SCH (08:22)
[2022-08-03] MEDS: DOCUSATE SODIUM 250MG CAPSULE PO SCH (08:22)
[2022-08-03] MEDS: FERROUS SULFATE 325MG TABLET PO SCH (08:22)
[2022-08-03] MEDS: LIDOCAINE 5% PATCH TOP SCH (08:23)
[2022-08-03] MEDS: METOPROLOL TARTRATE 25MG TABLET PO SCH ×2 (08:24→21:00)
[2022-08-03] MEDS: MORPHINE SULFATE 2 MG/ML CPJ (NOT FOR IM USE) IV PRN ×3 (08:27→22:25)
[2022-08-03] MEDS: SACUBITRIL/VALSARTAN 24MG/26MG TABLET PO SCH ×2 (09:47→22:18)
[2022-08-03] MEDS: FUROSEMIDE 40MG TABLET PO SCH (11:13)
[2022-08-03 11:28] VITALS: BP 112/60
[2022-08-03 11:56] LABS: NUCLEATED RED BLOOD CELLS 14 /100 WBC; PLATELET ESTIMATE NORMAL
[2022-08-03 15:38] VITALS: BP 124/58
[2022-08-03 20:00] VITALS: BP 127/62
[2022-08-04] VITALS: BP 100/48
[2022-08-04] MEDS: DILTIAZEM HCL 60MG TABLET PO SCH ×2 (06:00→13:56)
[2022-08-04 08:05] VITALS: BP 104/68
[2022-08-04] MEDS: METOPROLOL TARTRATE 25MG TABLET PO SCH (08:08)
[2022-08-04] MEDS: FOLIC ACID/VITAMIN B COMP W-C TABLET PO SCH (08:14)
[2022-08-04] MEDS: CALCIUM 1250MG TABLET (500MG ELEMENTAL CALCIUM) PO SCH (08:14)
[2022-08-04] MEDS: FAMOTIDINE 20MG TABLET PO SCH (08:14)
[2022-08-04] MEDS: APIXABAN 2.5 MG TABLET PO SCH (08:14)
[2022-08-04] MEDS: FOLIC ACID 1MG TABLET PO SCH (08:14)
[2022-08-04] MEDS: FERROUS SULFATE 325MG TABLET PO SCH (08:15)
[2022-08-04] MEDS: SACUBITRIL/VALSARTAN 24MG/26MG TABLET PO SCH (08:15)
[2022-08-04] MEDS: DOCUSATE SODIUM 250MG CAPSULE PO SCH (08:15)
[2022-08-04] MEDS: FUROSEMIDE 40MG TABLET PO SCH (08:15)
[2022-08-04] MEDS: LIDOCAINE 5% PATCH TOP SCH (08:15)
[2022-08-04] MEDS: MORPHINE SULFATE 2 MG/ML CPJ (NOT FOR IM USE) IV PRN (08:39)
[2022-08-04 09:51] VITALS: BP 104/68
[2022-08-04 11:25] VITALS: BP 136/65
[2022-08-04 14:14] LABS: CHLORIDE 107 mEq/L (98-107)
[2022-08-06 14:07] LABS: HGB A 36.7 % (96.4-98.8); HGB A2 2.6 % (1.8-3.2); HGB F 6.9 % (0.0-2.0); HGB F Reflexed % (0.0-2.0); HGB S 53.8 % (0.0); HGB S Reflexed % (0.0)
== END 2022-08-04 14:06 | disposition home or self-care (01) | DRG 803 ==
LOC: ER 16:27 → 8WST 07-31 02:54
PROVIDERS: ADMIT Internal Medicine; ATTEND Internal Medicine
PROC: 30233N1 Transfusion of Nonautologous Red Blood Cells into Peripheral Vein, Percutaneous Approach (ICD-10-PCS; 2022-07-31)
PROC: 0JBP0ZZ Excision of Left Lower Leg Subcutaneous Tissue and Fascia, Open Approach (ICD-10-PCS; principal; 2022-08-02)
DX: D57.00 Hb-SS disease with crisis, unspecified (principal); I42.9 Cardiomyopathy, unspecified; I50.22 Chronic systolic (congestive) heart failure; L97.929 Non-pressure chronic ulcer of unspecified part of left lower leg with unspecified severity; I44.0 Atrioventricular block, first degree; I48.91 Unspecified atrial fibrillation; I11.0 Hypertensive heart disease with heart failure; G90.8 Other disorders of autonomic nervous system; I25.10 Atherosclerotic heart disease of native coronary artery without angina pectoris; E78.00 Pure hypercholesterolemia, unspecified; Z96.649 Presence of unspecified artificial hip joint; Z86.73 Personal history of transient ischemic attack (TIA), and cerebral infarction without residual deficits; Z79.899 Other long term (current) drug therapy
CPT/HCPCS: 36415; 71045; 73590; 80053; 83021; 83880; 84443; 84484; 85014; 85018; 85025; 85044; 85660; 86850; 86870; 86900; 86920; 87426; 93005; 93306; 97162; 97166; 99285; G0378; J2270; J2405; J3490; J7030; P9016; Q0163

== ENCOUNTER 2022-09-11 14:40 | Inpatient (IN) | payer MEDICARE ==
[~2022-09-11] VITALS: Ht 170.2 cm; Wt 58.5 kg
[~2022-09-11 14:40] MED LIST changes: -APIX5TAB PO; +FURO-151 MT; -NEPVIT PO; -NYST15CR36 TOP
[2022-09-11] MEDS ORDERED: CLONIDINE 0.1MG TABLET PO PRN (17:45)
[2022-09-11] MEDS ORDERED: MAGNESIUM/ALUMINUM HYDROXIDE/SIMETHICONE 30ML UDC PO PRN (17:45)
[2022-09-11] MEDS ORDERED: ACETAMINOPHEN 325MG TABLET PO PRN (17:45)
[2022-09-11] MEDS ORDERED: ZOLPIDEM TARTRATE 5MG TABLET PO PRN (17:45)
[2022-09-11] MEDS ORDERED: IPRATROPIUM/ALBUTEROL 0.5-3(2.5)MG/3ML NEB HHN PRN (17:45)
[2022-09-11] MEDS ORDERED: ONDANSETRON HCL 4MG/2ML INJ IV PRN (17:45)
[2022-09-11 20:00] VITALS: BP 119/59
[2022-09-11 20:01] LABS: MEAN CORPUSCULAR HEMOGLOBIN 33.7 pg (28.0-32.0); MEAN CORPUSCULAR VOLUME 99.6 fL (81.0-99.0); MEAN PLATELET VOLUME 7.6 fl (7.4-10.4); PLATELET 319 x1000/uL (130-400); RED BLOOD CELL COUNT 2.09 mill/uL (4.2-5.4); RED CELL DISTRIBUTION WIDTH 24.3 % (11.6-14.6)
[2022-09-11 20:07] LABS: HEMATOCRIT. 20.8 % (36.0-48.0)
[2022-09-11 20:15] LABS: CHLORIDE 107 mEq/L (98-107)
[2022-09-11] MEDS ORDERED: ALBUTEROL (0.083%) 2.5MG/3ML NEB HHN PRN (20:15)
[2022-09-11] MEDS ORDERED: IPRATROPIUM BROMIDE (0.02%) 0.5MG/2.5ML NEB HHN PRN (20:15)
[2022-09-11] MEDS: FUROSEMIDE 40MG/4ML VIAL IVP NR ×2 (20:45→20:53)
[2022-09-11] MEDS: MORPHINE SULFATE 30MG TABLET SR PO SCH (20:46)
[2022-09-11] MEDS: APIXABAN 5 MG TABLET PO SCH (20:47)
[2022-09-11] MEDS ORDERED: POTASSIUM CHLORIDE 10MEQ TABLET SR PO NR (21:00)
[2022-09-11 21:08] LABS: PLATELET ESTIMATE NORMAL
[2022-09-11 21:40] VITALS: BP 119/59
[2022-09-12] VITALS: BP 121/69
[2022-09-12 04:00] VITALS: BP 132/62
[2022-09-12] MEDS ORDERED: APIX5TAB MT (04:51)
[2022-09-12] MEDS: APIXABAN 5 MG TABLET PO SCH ×2 (06:08→17:32)
[2022-09-12 08:26] VITALS: BP 106/64
[2022-09-12] MEDS ORDERED: LIDOCAINE HCL 1% 10 MG/ML 10ML VIAL ONE (08:29)
[2022-09-12] MEDS ORDERED: NON FORMULARY PATIENT HOME MED XX SCH (09:00)
[2022-09-12] MEDS: MORPHINE SULFATE 30MG TABLET SR PO SCH ×2 (09:00→20:26)
[2022-09-12] MEDS ORDERED: NALOXONE HCL 0.4 MG/ML 1ML VIAL IV PRN (09:15)
[2022-09-12] MEDS ORDERED: NALOXONE HCL 0.4MG/ML VIAL IV PRN (09:30)
[2022-09-12] MEDS: POTASSIUM CHLORIDE 10MEQ TABLET SR PO SCH (10:10)
[2022-09-12] MEDS: FUROSEMIDE 40MG/4ML VIAL IVP SCH (10:10)
[2022-09-12] MEDS: FOLIC ACID 1MG TABLET PO SCH (10:11)
[2022-09-12] MEDS: MULTIVITAMINS,THER W-MINERALS TABLET PO SCH (10:11)
[2022-09-12] MEDS: DOCUSATE SODIUM 100MG CAPSULE PO SCH (10:11)
[2022-09-12] MEDS: HYDROMORPHONE HCL/PF 2MG/ML CPJ IV PRN ×3 (10:13→23:41)
[2022-09-12 11:35] VITALS: BP 111/52
[2022-09-12] MEDS: SACUBITRIL/VALSARTAN 24MG/26MG TABLET PO SCH ×3 (12:00→17:31)
[2022-09-12 12:31] LABS: MEAN CORPUSCULAR HEMOGLOBIN 34.5 pg (28.0-32.0); MEAN CORPUSCULAR VOLUME 97.6 fL (81.0-99.0); MEAN PLATELET VOLUME 7.8 fl (7.4-10.4); PLATELET 338 x1000/uL (130-400); RED CELL DISTRIBUTION WIDTH 25.1 % (11.6-14.6)
[2022-09-12 12:46] LABS: CHLORIDE 106 mEq/L (98-107)
[2022-09-12 12:54] LABS: TOTAL IRON BINDING CAPACITY 221 ug/dL (250-450)
[2022-09-12 12:55] LABS: HEMATOCRIT. 19.5 % (36.0-48.0); HEMOGLOBIN. 6.9 g/dL (12.0-16.0)
[2022-09-12 14:00] LABS: NUCLEATED RED BLOOD CELLS 7 /100 WBC
[2022-09-12 14:07] LABS: PLATELET ESTIMATE NORMAL
[2022-09-12 16:29] VITALS: BP 93/54
[2022-09-12 20:00] VITALS: BP 113/54
[2022-09-13] VITALS (14 sets, daily range): BP systolic 101–131; BP diastolic 48–77
[2022-09-13] MEDS ORDERED: DIPHENHYDRAMINE 25MG CAPSULE PO NR (00:45)
[2022-09-13] MEDS: APIXABAN 5 MG TABLET PO SCH ×2 (05:48→17:04)
[2022-09-13] MEDS: HYDROMORPHONE HCL/PF 2MG/ML CPJ IV PRN ×2 (07:02→14:55)
[2022-09-13 07:53] LABS: MEAN CORPUSCULAR HEMOGLOBIN 34.2 pg (28.0-32.0); MEAN CORPUSCULAR VOLUME 97.8 fL (81.0-99.0); MEAN PLATELET VOLUME 7.8 fl (7.4-10.4); PLATELET 306 x1000/uL (130-400); RED BLOOD CELL COUNT 1.83 mill/uL (4.2-5.4); RED CELL DISTRIBUTION WIDTH 25.6 % (11.6-14.6)
[2022-09-13 07:57] LABS: HEMATOCRIT. 17.9 % (36.0-48.0); HEMOGLOBIN. 6.2 g/dL (12.0-16.0)
[2022-09-13 08:10] LABS: CHLORIDE 104 mEq/L (98-107)
[2022-09-13 08:30] LABS: CLARITY URINE CLEAR (CLEAR); COLOR URINE ORANGE (YELLOW); KETONES URINE TRACE (NEGATIVE); LEUKOCYTE ESTERASE URINE TRACE (NEGATIVE); NITRITE URINE NEGATIVE (NEGATIVE); OCCULT BLOOD URINE NEGATIVE (NEGATIVE); PH URINE 5.5 (4.5-8.0); PROTEIN URINE TRACE (NEGATIVE); SPECIFIC GRAVITY URINE 1.012 (1.005-1.030)
[2022-09-13] MEDS: MORPHINE SULFATE 30MG TABLET SR PO SCH (09:00)
[2022-09-13] MEDS: DOCUSATE SODIUM 100MG CAPSULE PO SCH (09:00)
[2022-09-13] MEDS: FUROSEMIDE 40MG/4ML VIAL IVP SCH ×2 (09:00→09:56)
[2022-09-13] MEDS ORDERED: METOPROLOL TARTRATE 25MG TABLET PO SCH (09:45)
[2022-09-13] MEDS: POTASSIUM CHLORIDE 10MEQ TABLET SR PO SCH (09:54)
[2022-09-13] MEDS: FOLIC ACID 1MG TABLET PO SCH (09:55)
[2022-09-13] MEDS: SACUBITRIL/VALSARTAN 24MG/26MG TABLET PO SCH ×2 (09:55→17:04)
[2022-09-13] MEDS: MULTIVITAMINS,THER W-MINERALS TABLET PO SCH (09:55)
[2022-09-13 11:17] LABS: NUCLEATED RED BLOOD CELLS 4 /100 WBC; PLATELET ESTIMATE NORMAL
[2022-09-13] MEDS ORDERED: DIPHENHYDRAMINE HCL/ZINC ACET 28 GM CREAM TOP SCH (15:00)
[2022-09-13 20:26] LABS: HEMATOCRIT 26.4 % (36.0-48.0); HEMOGLOBIN 9.2 g/dL (12.0-16.0)
[2022-09-17 14:11] LABS: HGB A 24.5 % (96.4-98.8); HGB A2 2.6 % (1.8-3.2); HGB F 8.7 % (0.0-2.0); HGB F Reflexed % (0.0-2.0); HGB S 64.2 % (0.0); HGB S Reflexed % (0.0)
== END 2022-09-13 22:35 | disposition home or self-care (01) | DRG 812 ==
LOC: 7EST 16:41
PROVIDERS: ADMIT Internal Medicine Geriatric Medicine; ATTEND Internal Medicine Geriatric Medicine
PROC: 02HV33Z Insertion of Infusion Device into Superior Vena Cava, Percutaneous Approach (ICD-10-PCS; 2022-09-12)
PROC: B5181ZA Fluoroscopy of Superior Vena Cava using Low Osmolar Contrast, Guidance (ICD-10-PCS; 2022-09-12)
PROC: B548ZZA Ultrasonography of Superior Vena Cava, Guidance (ICD-10-PCS; 2022-09-12)
PROC: 30233N1 Transfusion of Nonautologous Red Blood Cells into Peripheral Vein, Percutaneous Approach (ICD-10-PCS; principal; 2022-09-13)
DX: D64.9 Anemia, unspecified (principal); I50.22 Chronic systolic (congestive) heart failure; L97.929 Non-pressure chronic ulcer of unspecified part of left lower leg with unspecified severity; D57.00 Hb-SS disease with crisis, unspecified; I48.0 Paroxysmal atrial fibrillation; I11.0 Hypertensive heart disease with heart failure; I87.2 Venous insufficiency (chronic) (peripheral); M19.90 Unspecified osteoarthritis, unspecified site; L29.9 Pruritus, unspecified; E80.6 Other disorders of bilirubin metabolism
CPT/HCPCS: 36415; 36573; 71045; 80048; 81003; 83021; 83540; 83550; 83880; 85014; 85018; 85025; 85044; 85660; 86850; 86870; 86900; 86920; 87426; 93306; C1725; C1769; J1170; J1940; J3490; P9016; Q0163

== ENCOUNTER 2022-12-28 21:53 | Inpatient (IN) | payer MEDICARE, BC ==
[~2022-12-28] VITALS: Ht 160 cm; Wt 64.0 kg
[~2022-12-28 21:53] MED LIST changes: -APIX2.5T PO; +APIX5TAB MT
[2022-12-28] MEDS ORDERED: SODIUM CHLORIDE 0.9% 1,000 ML IV ONE (22:15)
[2022-12-28] MEDS ORDERED: MORPHINE SULFATE 4 MG/ML CPJ (NOT FOR IM USE) IV ONE (23:00)
[2022-12-28 23:28] LABS: MEAN CORPUSCULAR HEMOGLOBIN 34.9 pg (28.0-32.0); MEAN CORPUSCULAR VOLUME 96.9 fL (81.0-99.0); MEAN PLATELET VOLUME 7.2 fl (7.4-10.4); PLATELET 436 x1000/uL (130-400); RED BLOOD CELL COUNT 1.82 mill/uL (4.2-5.4); RED CELL DISTRIBUTION WIDTH 26.5 % (11.6-14.6)
[2022-12-28 23:32] LABS: CHLORIDE 103 mEq/L (98-107)
[2022-12-28 23:34] LABS: INR 1.2; PROTHROMBIN TIME 12.5 sec (9.6-11.0)
[2022-12-28 23:54] LABS: HEMOGLOBIN. 6.4 g/dL (12.0-16.0)
[2022-12-28 23:55] LABS: HEMATOCRIT. 17.7 % (36.0-48.0)
[2022-12-29] MEDS ORDERED: ZOLPIDEM TARTRATE 5MG TABLET PO PRN (02:00)
[2022-12-29] MEDS ORDERED: ONDANSETRON HCL 4MG/2ML INJ IV PRN ×2 (02:00→12:45)
[2022-12-29] MEDS ORDERED: CLONIDINE 0.1MG TABLET PO PRN (02:00)
[2022-12-29] MEDS ORDERED: DIPHENHYDRAMINE 50MG/ML VIAL IV PRN (02:00)
[2022-12-29] MEDS ORDERED: IPRATROPIUM/ALBUTEROL 0.5-3(2.5)MG/3ML NEB HHN PRN (02:00)
[2022-12-29] MEDS ORDERED: GUAIFENESIN 200MG/10ML SUGAR FREE UDC PO PRN (02:00)
[2022-12-29] MEDS ORDERED: ACETAMINOPHEN 325MG TABLET PO PRN ×2 (02:00)
[2022-12-29] MEDS ORDERED: NA PHOS,M-B/NA PHOS,DI-BA ENEMA 118ML PR PRN (02:00)
[2022-12-29] MEDS ORDERED: NALOXONE HCL 0.4MG/ML VIAL IV PRN (02:30)
[2022-12-29 02:48] LABS: CLARITY URINE CLEAR (CLEAR); COLOR URINE DARK YELLOW (YELLOW); KETONES URINE NEGATIVE (NEGATIVE); LEUKOCYTE ESTERASE URINE TRACE (NEGATIVE); NITRITE URINE NEGATIVE (NEGATIVE); OCCULT BLOOD URINE NEGATIVE (NEGATIVE); PH URINE 6.5 (4.5-8.0); PROTEIN URINE NEGATIVE (NEGATIVE); SPECIFIC GRAVITY URINE 1.012 (1.005-1.030)
[2022-12-29] MEDS ORDERED: MVI, ADULT NO.1 10 ML, FOLIC ACID 1 MG, THIAMINE HCL 100 MG in SODIUM CHLORIDE 0.9% 1,0... IV NR ×4 (03:00)
[2022-12-29 04:36] LABS: NUCLEATED RED BLOOD CELLS 3 /100 WBC; PLATELET ESTIMATE INCREASED
[2022-12-29 09:00] VITALS: BP 104/60
[2022-12-29] MEDS ORDERED: FOLIC ACID 1MG TABLET PO SCH (09:00)
[2022-12-29] MEDS: DOCUSATE SODIUM 250MG CAPSULE PO SCH (09:56)
[2022-12-29] MEDS: MORPHINE SULFATE 4 MG/ML CPJ (NOT FOR IM USE) IV PRN ×2 (10:23→11:08)
[2022-12-29 11:01] VITALS: BP 104/60
[2022-12-29 11:51] VITALS: BP 114/76
[2022-12-29] MEDS ORDERED: NALOXONE HCL 0.4 MG/ML 1ML VIAL IV PRN (12:45)
[2022-12-29] MEDS ORDERED: LEVOFLOXACIN 500MG TABLET PO NR (13:32)
[2022-12-29] MEDS ORDERED: HYDROMORPHONE HCL/PF 4MG/ML CPJ IV PRN (14:30)
[2022-12-29] MEDS ORDERED: HYDROMORPHONE HCL/PF 2MG/ML CPJ IV PRN (15:39)
[2022-12-29 16:59] VITALS: BP 131/62
[2022-12-29] MEDS: APIXABAN 5 MG TABLET PO SCH (17:58)
[2022-12-29 20:00] VITALS: BP 131/72
[2022-12-29] MEDS: ATORVASTATIN CALCIUM 10MG TABLET PO SCH (20:11)
[2022-12-29] MEDS: SENNOSIDES/DOCUSATE SOD 8.6/50MG TABLET PO SCH (20:11)
[2022-12-30] VITALS: BP 128/77
[2022-12-30] MEDS: MORPHINE SULFATE 4 MG/ML CPJ (NOT FOR IM USE) IV PRN ×5 (00:41→21:02)
[2022-12-30 04:00] VITALS: BP 120/88
[2022-12-30] MEDS: APIXABAN 5 MG TABLET PO SCH ×2 (06:19→17:51)
[2022-12-30 08:00] VITALS: BP 128/86
[2022-12-30] MEDS ORDERED: POVIDONE-IODINE 10% TOPICAL SOLN 240ML TOP ONE (08:15)
[2022-12-30] MEDS ORDERED: SODIUM CHLORIDE 0.9% 250 ML IV ONE (08:45)
[2022-12-30] MEDS ORDERED: FOLIC ACID 1MG TABLET PO SCH (09:00)
[2022-12-30] MEDS: METOPROLOL SUCCINATE 50MG ER TABLET PO SCH (09:00)
[2022-12-30] MEDS: FUROSEMIDE 40MG/4ML VIAL IVP SCH (09:00)
[2022-12-30 09:40] LABS: HEMATOCRIT. 21.4 % (36.0-48.0); HEMOGLOBIN. 7.3 g/dL (12.0-16.0); MEAN CORPUSCULAR HEMOGLOBIN 33.7 pg (28.0-32.0); MEAN PLATELET VOLUME 6.9 fl (7.4-10.4); PLATELET 385 x1000/uL (130-400); RED BLOOD CELL COUNT 2.18 mill/uL (4.2-5.4); RED CELL DISTRIBUTION WIDTH 27.1 % (11.6-14.6)
[2022-12-30 09:45] LABS: CHLORIDE 107 mEq/L (98-107)
[2022-12-30] MEDS: MULTIVITAMINS,THER W-MINERALS TABLET PO SCH (10:07)
[2022-12-30] MEDS: POTASSIUM CHLORIDE 10MEQ TABLET SR PO SCH (10:07)
[2022-12-30] MEDS: DOCUSATE SODIUM 250MG CAPSULE PO SCH (10:07)
[2022-12-30] MEDS: FOLIC ACID 1MG TABLET PO SCH (10:11)
[2022-12-30 12:00] VITALS: BP 116/71
[2022-12-30] MEDS: POVIDONE-IODINE 10% TOPICAL SOLN 240ML TOP SCH (13:00)
[2022-12-30] MEDS: LEVOFLOXACIN 250MG TABLET PO SCH (14:57)
[2022-12-30 16:00] VITALS: BP 115/70
[2022-12-30] MEDS ORDERED: SACUBITRIL/VALSARTAN 24MG/26MG TABLET PO SCH (17:00)
[2022-12-30] MEDS: ENTRESTO 24MG/26MG PO SCH (17:45)
[2022-12-30 19:52] VITALS: BP 120/78
[2022-12-30 20:11] LABS: NUCLEATED RED BLOOD CELLS 6 /100 WBC; PLATELET ESTIMATE NORMAL
[2022-12-30] MEDS: ATORVASTATIN CALCIUM 10MG TABLET PO SCH (21:00)
[2022-12-30] MEDS: SENNOSIDES/DOCUSATE SOD 8.6/50MG TABLET PO SCH (21:00)
[2022-12-31] VITALS (7 sets, daily range): BP systolic 110–126; BP diastolic 61–78
[2022-12-31] MEDS: MORPHINE SULFATE 4 MG/ML CPJ (NOT FOR IM USE) IV PRN ×4 (03:08→20:03)
[2022-12-31] MEDS: APIXABAN 5 MG TABLET PO SCH ×2 (06:19→17:44)
[2022-12-31 06:46] LABS: CHLORIDE 106 mEq/L (98-107)
[2022-12-31 06:59] LABS: HEMATOCRIT. 21.8 % (36.0-48.0); HEMOGLOBIN. 7.6 g/dL (12.0-16.0); MEAN CORPUSCULAR HEMOGLOBIN 34.3 pg (28.0-32.0); MEAN CORPUSCULAR VOLUME 98.6 fL (81.0-99.0); MEAN PLATELET VOLUME 7.6 fl (7.4-10.4); PLATELET 384 x1000/uL (130-400); RED BLOOD CELL COUNT 2.21 mill/uL (4.2-5.4); RED CELL DISTRIBUTION WIDTH 26.1 % (11.6-14.6)
[2022-12-31] MEDS: METOPROLOL SUCCINATE 50MG ER TABLET PO SCH (08:12)
[2022-12-31] MEDS: POTASSIUM CHLORIDE 10MEQ TABLET SR PO SCH (08:12)
[2022-12-31] MEDS: MULTIVITAMINS,THER W-MINERALS TABLET PO SCH (08:12)
[2022-12-31] MEDS: FOLIC ACID 1MG TABLET PO SCH (08:12)
[2022-12-31] MEDS: DOCUSATE SODIUM 250MG CAPSULE PO SCH (08:12)
[2022-12-31] MEDS: FUROSEMIDE 40MG/4ML VIAL IVP SCH (08:16)
[2022-12-31] MEDS: ENTRESTO 24MG/26MG PO SCH ×2 (08:20→17:45)
[2022-12-31] MEDS: POVIDONE-IODINE 10% TOPICAL SOLN 240ML TOP SCH (09:00)
[2022-12-31 09:31] LABS: PLATELET ESTIMATE NORMAL
[2022-12-31] MEDS: LEVOFLOXACIN 250MG TABLET PO SCH (12:02)
[2022-12-31] MEDS: ATORVASTATIN CALCIUM 10MG TABLET PO SCH (21:59)
[2022-12-31] MEDS: SENNOSIDES/DOCUSATE SOD 8.6/50MG TABLET PO SCH (22:00)
[2023-01-01] VITALS: BP 112/73
[2023-01-01] MEDS: MORPHINE SULFATE 4 MG/ML CPJ (NOT FOR IM USE) IV PRN ×3 (00:11→10:14)
[2023-01-01 04:00] VITALS: BP 107/68
[2023-01-01] MEDS: APIXABAN 5 MG TABLET PO SCH (06:09)
[2023-01-01 08:49] VITALS: BP 117/66
[2023-01-01] MEDS: FOLIC ACID 1MG TABLET PO SCH (08:49)
[2023-01-01] MEDS: MULTIVITAMINS,THER W-MINERALS TABLET PO SCH (08:49)
[2023-01-01] MEDS: LEVOFLOXACIN 250MG TABLET PO SCH (08:50)
[2023-01-01] MEDS: METOPROLOL SUCCINATE 50MG ER TABLET PO SCH (08:50)
[2023-01-01] MEDS: POTASSIUM CHLORIDE 10MEQ TABLET SR PO SCH (08:50)
[2023-01-01] MEDS: FUROSEMIDE 40MG/4ML VIAL IVP SCH (08:51)
[2023-01-01] MEDS: DOCUSATE SODIUM 250MG CAPSULE PO SCH (08:56)
[2023-01-01 08:59] VITALS: BP 112/78
[2023-01-01] MEDS: ENTRESTO 24MG/26MG PO SCH (08:59)
[2023-01-01] MEDS: POVIDONE-IODINE 10% TOPICAL SOLN 240ML TOP SCH (09:00)
[2023-01-01 10:14] VITALS: BP 105/74
[2023-01-01] MEDS ORDERED: MUPIROCIN 2% OINT 15GM TOP SCH (13:00)
[2023-01-01 13:40] VITALS: BP 105/74
[2023-01-01] MEDS ORDERED: ATOR10TA PO (13:46)
[2023-01-01] MEDS ORDERED: SENN15TA PO (13:47)
[2023-01-01] MEDS ORDERED: CYCL5TAB PO (13:48)
== END 2023-01-01 17:04 | disposition home or self-care (01) | DRG 811 ==
LOC: ER 21:53 → EDBEDREQ 12-29 02:04 → EDBEDREQSVC 12-29 02:53 → MICUSO 12-29 04:19 → 3WST 12-29 09:41
PROVIDERS: ADMIT Internal Medicine Geriatric Medicine; ATTEND Internal Medicine Geriatric Medicine
PROC: 30233N1 Transfusion of Nonautologous Red Blood Cells into Peripheral Vein, Percutaneous Approach (ICD-10-PCS; principal; 2022-12-29)
DX: D57.00 Hb-SS disease with crisis, unspecified (principal); I50.23 Acute on chronic systolic (congestive) heart failure; I48.20 Chronic atrial fibrillation, unspecified; I48.92 Unspecified atrial flutter; E78.00 Pure hypercholesterolemia, unspecified; I11.0 Hypertensive heart disease with heart failure; I25.10 Atherosclerotic heart disease of native coronary artery without angina pectoris; R73.9 Hyperglycemia, unspecified; R73.03 Prediabetes; Z96.649 Presence of unspecified artificial hip joint; Z86.73 Personal history of transient ischemic attack (TIA), and cerebral infarction without residual deficits; Z88.8 Allergy status to other drugs, medicaments and biological substances
CPT/HCPCS: 36415; 71045; 72110; 73522; 73590; 80048; 80053; 81003; 83036; 85025; 85044; 85660; 86850; 86870; 86900; 86920; 97161; 99291; J1170; J1940; J2270; J3411; J3490; J7030; P9016

== ENCOUNTER 2023-02-20 18:41 | Emergency (ER) | payer MEDICARE ==
[~2023-02-20] VITALS: Ht 162.6 cm; Wt 45.0 kg
[~2023-02-20 18:41] MED LIST changes: +AMI2 PO; +ATOR10TA PO; -PRED10TA23 PO; +SENN15TA PO
[2023-02-20 18:52] VITALS: BP 122/70; PULSE 117; RESP 20; TEMP 98.1; O2SAT 95
[2023-02-20] MEDS ORDERED: MORPHINE SULFATE 2 MG/ML CPJ (NOT FOR IM USE) IV ONE (19:15)
[2023-02-20] MEDS ORDERED: SODIUM CHLORIDE 0.45% 500 ML IV ONE (19:15)
[2023-02-20 19:46] LABS: HEMATOCRIT. 25.3 % (36.0-48.0); HEMOGLOBIN. 8.4 g/dL (12.0-16.0); MEAN CORPUSCULAR HEMOGLOBIN 31.5 pg (28.0-32.0); MEAN CORPUSCULAR VOLUME 95.3 fL (81.0-99.0); MEAN PLATELET VOLUME 7.5 fl (7.4-10.4); PLATELET 495 x1000/uL (130-400); RED BLOOD CELL COUNT 2.66 mill/uL (4.2-5.4); RED CELL DISTRIBUTION WIDTH 21.1 % (11.6-14.6)
[2023-02-20 19:57] LABS: CHLORIDE 105 mEq/L (98-107)
[2023-02-20] MEDS ORDERED: PIPERACILLIN/TAZ 3.375G PREMIX 50 ML IV SCH (20:15)
[2023-02-20 20:51] LABS: PLATELET ESTIMATE SLIGHTLY INCREASED
[2023-02-20] MEDS ORDERED: DOXY100C5 MT (21:57)
== END 2023-02-20 22:41 | disposition left against medical advice (07) ==
LOC: ER 18:41 → CANBEDREQ 02-22 19:33
DX: M79.10 Myalgia, unspecified site (principal); R53.1 Weakness; I11.0 Hypertensive heart disease with heart failure; I50.9 Heart failure, unspecified; I25.10 Atherosclerotic heart disease of native coronary artery without angina pectoris; I48.91 Unspecified atrial fibrillation; E78.00 Pure hypercholesterolemia, unspecified
CPT/HCPCS: 36415; 71045; 80053; 83615; 84484; 85025; 85044; 86850; 86870; 86900; 93005; 99285

== ENCOUNTER 2023-03-05 16:16 | Inpatient (IN) | payer MEDICARE ==
[~2023-03-05] VITALS: Ht 170.2 cm; Wt 56.8 kg
[~2023-03-05 16:16] MED LIST changes: +DOXY100C5 MT; -FURO-151 MT; +FURO-151 PO
[2023-03-05 18:05] VITALS: BP 148/74; PULSE 90; RESP 20; TEMP 98.2
[2023-03-05] MEDS ORDERED: MAGNESIUM/ALUMINUM HYDROXIDE/SIMETHICONE 30ML UDC PO PRN (18:15)
[2023-03-05] MEDS ORDERED: ACETAMINOPHEN 650MG SUPP PR PRN (18:15)
[2023-03-05] MEDS ORDERED: CLONIDINE 0.1MG TABLET PO PRN (18:15)
[2023-03-05] MEDS ORDERED: NALOXONE HCL 0.4MG/ML VIAL IV PRN (19:00)
[2023-03-05 20:00] VITALS: BP 96/53; PULSE 84; RESP 20; TEMP 97.8
[2023-03-05 20:35] LABS: MEAN CORPUSCULAR HEMOGLOBIN 31.5 pg (28.0-32.0); MEAN CORPUSCULAR VOLUME 91.1 fL (81.0-99.0); MEAN PLATELET VOLUME 8.3 fl (7.4-10.4); PLATELET 334 x1000/uL (130-400); RED BLOOD CELL COUNT 2.19 mill/uL (4.2-5.4); RED CELL DISTRIBUTION WIDTH 21.1 % (11.6-14.6)
[2023-03-05 20:39] LABS: CHLORIDE 109 mEq/L (98-107)
[2023-03-05 20:52] LABS: HEMATOCRIT. 19.9 % (36.0-48.0); HEMOGLOBIN. 6.9 g/dL (12.0-16.0)
[2023-03-05] MEDS: MORPHINE SULFATE 30MG TABLET SR PO SCH (21:00)
[2023-03-05] MEDS: ENTRESTO PO SCH (21:00)
[2023-03-05] MEDS: METOPROLOL TARTRATE 50MG TABLET PO SCH (21:48)
[2023-03-05 23:23] VITALS: BP 115/59; PULSE 84; RESP 18; TEMP 98.2
[2023-03-05 23:27] LABS: PLATELET ESTIMATE NORMAL
[2023-03-05 23:50] VITALS: BP 105/55; PULSE 79; RESP 18; TEMP 97.5
[2023-03-06] MEDS ORDERED: IPRATROPIUM/ALBUTEROL 0.5-3(2.5)MG/3ML NEB HHN SCH
[2023-03-06 04:00] VITALS: BP 110/59; PULSE 64; RESP 20; TEMP 98
[2023-03-06] MEDS ORDERED: LIDOCAINE HCL 1% 10 MG/ML 10ML VIAL ONE (07:04)
[2023-03-06] MEDS: DOCUSATE SODIUM 250MG CAPSULE PO SCH (09:00)
[2023-03-06] MEDS: FOLIC ACID 1MG TABLET PO SCH (09:30)
[2023-03-06] MEDS: FUROSEMIDE 40MG/4ML VIAL IVP SCH (09:30)
[2023-03-06] MEDS ORDERED: NON FORMULARY PATIENT HOME MED XX SCH (09:30)
[2023-03-06] MEDS: METOPROLOL TARTRATE 50MG TABLET PO SCH ×2 (09:31→22:10)
[2023-03-06] MEDS: MORPHINE SULFATE 2 MG/ML CPJ (NOT FOR IM USE) IV PRN ×2 (09:32→23:17)
[2023-03-06] MEDS: POTASSIUM CHLORIDE 10MEQ TABLET SR PO SCH (09:54)
[2023-03-06] MEDS: MORPHINE SULFATE 30MG TABLET SR PO SCH ×2 (09:54→22:12)
[2023-03-06] MEDS: ENTRESTO PO SCH ×2 (09:54→16:54)
[2023-03-06 11:15] LABS: MEAN CORPUSCULAR HEMOGLOBIN 32.2 pg (28.0-32.0); MEAN CORPUSCULAR VOLUME 91.6 fL (81.0-99.0); MEAN PLATELET VOLUME 7.8 fl (7.4-10.4); PLATELET 324 x1000/uL (130-400); RED BLOOD CELL COUNT 2.04 mill/uL (4.2-5.4); RED CELL DISTRIBUTION WIDTH 20.4 % (11.6-14.6)
[2023-03-06 11:22] LABS: INR 1.1; PROTHROMBIN TIME 11.8 sec (9.6-11.0)
[2023-03-06 11:23] LABS: HEMATOCRIT. 18.7 % (36.0-48.0); HEMOGLOBIN. 6.6 g/dL (12.0-16.0)
[2023-03-06 11:28] LABS: CHLORIDE 109 mEq/L (98-107)
[2023-03-06 12:00] VITALS: BP 116/47; PULSE 72; RESP 19; TEMP 97.5
[2023-03-06] MEDS: APIXABAN 5 MG TABLET PO SCH ×2 (13:00→23:16)
[2023-03-06 14:30] LABS: HEPATITIS B SURFACE ANTIGEN NEGATIVE
[2023-03-06 16:00] VITALS: BP 155/77; PULSE 96; RESP 19; TEMP 98.8
[2023-03-06 16:36] LABS: ATYPICAL LYMPHOCYTES 1; NUCLEATED RED BLOOD CELLS 2 /100 WBC; PLATELET ESTIMATE NORMAL
[2023-03-06 20:00] VITALS: BP 141/83; PULSE 111; RESP 16; TEMP 97.8
[2023-03-06 23:09] VITALS: BP 131/77; PULSE 100; RESP 17; TEMP 97.5
[2023-03-07] VITALS (10 sets, daily range): BP systolic 108–123; BP diastolic 50–73; PULSE 64–106; RESP 17–20; TEMP 97.7–98.9
[2023-03-07 08:56] LABS: HEMATOCRIT. 21.7 % (36.0-48.0); HEMOGLOBIN. 7.6 g/dL (12.0-16.0); MEAN CORPUSCULAR HEMOGLOBIN 31.2 pg (28.0-32.0); MEAN CORPUSCULAR VOLUME 88.8 fL (81.0-99.0); MEAN PLATELET VOLUME 7.8 fl (7.4-10.4); PLATELET 292 x1000/uL (130-400); RED BLOOD CELL COUNT 2.44 mill/uL (4.2-5.4); RED CELL DISTRIBUTION WIDTH 19.3 % (11.6-14.6)
[2023-03-07] MEDS: MORPHINE SULFATE 30MG TABLET SR PO SCH ×2 (09:00→20:30)
[2023-03-07] MEDS: FUROSEMIDE 40MG/4ML VIAL IVP SCH (09:00)
[2023-03-07] MEDS: ENTRESTO PO SCH ×2 (09:00→22:13)
[2023-03-07] MEDS: FOLIC ACID 1MG TABLET PO SCH (09:00)
[2023-03-07] MEDS: DOCUSATE SODIUM 250MG CAPSULE PO SCH (09:00)
[2023-03-07 09:03] LABS: CHLORIDE 105 mEq/L (98-107)
[2023-03-07] MEDS: POTASSIUM CHLORIDE 10MEQ TABLET SR PO SCH (09:05)
[2023-03-07 09:07] LABS: A/G RATIO 0.7 (0.7-1.7); ALBUMIN 3.3 g/dL (2.9-4.4); ALPHA-1-GLOBULIN 0.3 g/dL (0.0-0.4); ALPHA-2-GLOBULIN 0.5 g/dL (0.4-1.0); BETA GLOBULIN 1.2 g/dL (0.7-1.3); GAMMA GLOBULINS 2.5 g/dL (0.4-1.8); GLOBULIN TOTAL 4.6 g/dL (2.2-3.9); M-SPIKE Not Observed g/dL (Not Observed); TOTAL PROTEIN SERUM 7.9 g/dL (6.0-8.5)
[2023-03-07] MEDS: MORPHINE SULFATE 2 MG/ML CPJ (NOT FOR IM USE) IV PRN ×2 (09:11→22:47)
[2023-03-07] MEDS: METOPROLOL TARTRATE 50MG TABLET PO SCH ×2 (09:17→20:29)
[2023-03-07] MEDS: APIXABAN 5 MG TABLET PO SCH ×2 (11:15→20:29)
[2023-03-07 13:46] LABS: HEMATOCRIT 22.4 % (36.0-48.0); HEMOGLOBIN 7.8 g/dL (12.0-16.0)
[2023-03-07] MEDS ORDERED: APIX2.5T PO (14:12)
[2023-03-07] MEDS ORDERED: DOCU250C69 PO (14:12)
[2023-03-07] MEDS ORDERED: FOLI-43 MT (14:18)
[2023-03-07] MEDS ORDERED: SACU1TAB PO (14:18)
[2023-03-07] MEDS ORDERED: METO-539 PO (14:18)
[2023-03-07] MEDS ORDERED: POTA-203 PO (14:18)
[2023-03-07 16:03] LABS: NUCLEATED RED BLOOD CELLS 2 /100 WBC
[2023-03-07 16:04] LABS: PLATELET ESTIMATE NORMAL
[2023-03-08] VITALS (9 sets, daily range): BP systolic 103–128; BP diastolic 46–82; PULSE 68–106; RESP 16–18; TEMP 97.5–99.1; O2SAT 96
[2023-03-08] MEDS: MORPHINE SULFATE 2 MG/ML CPJ (NOT FOR IM USE) IV PRN (05:32)
[2023-03-08 07:42] LABS: HEMATOCRIT 23.5 % (36.0-48.0); HEMOGLOBIN 8.3 g/dL (12.0-16.0)
[2023-03-08 07:49] LABS: INR 1.2; PROTHROMBIN TIME 12.5 sec (9.6-11.0)
[2023-03-08] MEDS: FUROSEMIDE 40MG/4ML VIAL IVP SCH (09:00)
[2023-03-08] MEDS: ENTRESTO PO SCH (09:31)
[2023-03-08] MEDS: METOPROLOL TARTRATE 50MG TABLET PO SCH (09:32)
[2023-03-08] MEDS: DOCUSATE SODIUM 250MG CAPSULE PO SCH (09:32)
[2023-03-08] MEDS: FOLIC ACID 1MG TABLET PO SCH (09:32)
[2023-03-08] MEDS: APIXABAN 5 MG TABLET PO SCH (09:32)
[2023-03-08] MEDS: MORPHINE SULFATE 30MG TABLET SR PO SCH (10:36)
[2023-03-08] MEDS: POTASSIUM CHLORIDE 10MEQ TABLET SR PO SCH (10:36)
== END 2023-03-08 12:00 | disposition home health service (06) | DRG 812 ==
LOC: 6WST 17:33
PROVIDERS: ADMIT Internal Medicine Geriatric Medicine; ATTEND Internal Medicine Geriatric Medicine
PROC: 02HV33Z Insertion of Infusion Device into Superior Vena Cava, Percutaneous Approach (ICD-10-PCS; principal; 2023-03-06)
PROC: B548ZZA Ultrasonography of Superior Vena Cava, Guidance (ICD-10-PCS; 2023-03-06)
PROC: B5181ZA Fluoroscopy of Superior Vena Cava using Low Osmolar Contrast, Guidance (ICD-10-PCS; 2023-03-06)
PROC: 30233N1 Transfusion of Nonautologous Red Blood Cells into Peripheral Vein, Percutaneous Approach (ICD-10-PCS; 2023-03-07)
DX: D57.219 Sickle-cell/Hb-C disease with crisis, unspecified (principal); I48.20 Chronic atrial fibrillation, unspecified; I50.22 Chronic systolic (congestive) heart failure; E44.0 Moderate protein-calorie malnutrition; Z68.1 Body mass index [BMI] 19.9 or less, adult; D57.819 Other sickle-cell disorders with crisis, unspecified; R74.01 Elevation of levels of liver transaminase levels
CPT/HCPCS: 36415; 36573; 71045; 80048; 80053; 84155; 84165; 85014; 85018; 85025; 85044; 85049; 85384; 86803; 86850; 86870; 86900; 86920; 87340; 97162; 97535; C1725; C1893; J1940; J2270; J3490; P9016

== ENCOUNTER 2023-05-18 16:40 | Inpatient (IN) | payer MEDICARE ==
[~2023-05-18] VITALS: Ht 165.1 cm; Wt 59.6 kg
[~2023-05-18 16:40] MED LIST changes: -ACET-2708 PO; -AMI2 PO; +APIX2.5T PO; -APIX5TAB MT; -ATOR10TA PO; -CALC-26 PO; -DILT60TA35 PO; -DOCU250C14 PO; +DOCU250C69 PO; -DOXY100C5 MT; +FOLI-43 MT; -FOLI-43 PO; +METO-539 PO; -METO25TA6 PO; -POTA-189 PO; +POTA-203 PO
[2023-05-18] MEDS ORDERED: KETOROLAC 30MG/ML VIAL IV STA (17:43)
[2023-05-18 19:08] LABS: MEAN CORPUSCULAR HEMOGLOBIN 33.2 pg (28.0-32.0); MEAN CORPUSCULAR HGB CONC 34.6 g/dL (31.0-37.0); MEAN CORPUSCULAR VOLUME 96.2 fL (81.0-99.0); MEAN PLATELET VOLUME 7.5 fl (7.4-10.4); PLATELET 359 x1000/uL (130-400); WHITE BLOOD COUNT 8.3 x1000/uL (4.5-11.0)
[2023-05-18 19:10] LABS: CHLORIDE 106 mEq/L (98-107); INDEX HEMOLYSI 2 (1-3); INDEX ICTERIC 3 (1-4); INDEX LIPEMIC 1 (1-3); POTASSIUM 4.5 mEq/L (3.5-5.1); SODIUM 137 mEq/L (136-145)
[2023-05-18 19:13] LABS: INR 1.1; PARTIAL THROMBOPLASTIN TIME 30.8 sec (23.4-31.0); PROTHROMBIN TIME 12.1 sec (9.6-11.0)
[2023-05-18 19:21] LABS: ALANINE AMINOTRANSFERASE 29 IU/L (13-61); ALBUMIN 3.3 g/dL (3.4-5.0); ASPARTATE AMINOTRANSFERASE 61 IU/L (15-37); BILIRUBIN TOTAL 6.2 mg/dL (0.1-1.0); CALCIUM 8.5 mg/dL (8.5-10.1); CARBON DIOXIDE 25 mEq/L (21-32); CREATININE 0.8 mg/dL (0.6-1.3); GLUCOSE 120 mg/dL (70-105); NT PRO B-TYPE NATRIURETIC PEP 1894 pg/mL (5-125); PROTEIN TOTAL 8.9 g/dL (6.0-8.3); TROPONIN I HIGH SENSITIVITY 21 ng/L (<54); UREA NITROGEN BLOOD 23 mg/dL (7-21)
[2023-05-18 20:08] LABS: DIFFERENTIAL COMMENT 1; HEMATOCRIT. 20.2 % (36.0-48.0)
[2023-05-18 20:48] LABS: ANISOCYTOSIS 3+; NUCLEATED RED BLOOD CELLS 16 /100 WBC; PLATELET ESTIMATE NORMAL; SICKLE CELLS 3+
[2023-05-18] MEDS ORDERED: ONDANSETRON HCL 4MG/2ML INJ IV PRN (23:30)
[2023-05-18] MEDS ORDERED: HYDROCODONE/ACETAMINOPHEN 5/325MG TABLET PO PRN (23:30)
[2023-05-18] MEDS ORDERED: SENNOSIDES 8.6MG TABLET PO PRN (23:30)
[2023-05-18] MEDS ORDERED: DOCUSATE SODIUM 250MG CAPSULE PO PRN (23:30)
[2023-05-18] MEDS ORDERED: NALOXONE HCL 0.4MG/ML VIAL IV PRN (23:45)
[2023-05-19] VITALS (10 sets, daily range): BP systolic 101–157; BP diastolic 60–90; PULSE 71–123; RESP 17–20; TEMP 97.6–99; O2SAT 97
[2023-05-19] MEDS ORDERED: KETOROLAC 30MG/ML VIAL IV NR (03:15)
[2023-05-19] MEDS: FUROSEMIDE 40MG TABLET PO SCH ×3 (08:25→21:20)
[2023-05-19] MEDS: METOPROLOL TARTRATE 50MG TABLET PO SCH ×2 (08:26→21:20)
[2023-05-19] MEDS ORDERED: NON FORMULARY PATIENT HOME MED XX SCH (09:00)
[2023-05-19] MEDS ORDERED: APIXABAN 2.5 MG TABLET PO SCH (09:00)
[2023-05-19] MEDS: MORPHINE SULFATE 30MG TABLET SR PO SCH (09:41)
[2023-05-19] MEDS: APIXABAN 5 MG TABLET PO SCH ×2 (09:41→19:50)
[2023-05-19] MEDS: DOCUSATE SODIUM 250MG CAPSULE PO SCH (09:42)
[2023-05-19] MEDS ORDERED: LIDOCAINE HCL 1% 10 MG/ML 10ML VIAL ONE (09:53)
[2023-05-19 13:11] LABS: MEAN CORPUSCULAR HEMOGLOBIN 33.2 pg (28.0-32.0); MEAN CORPUSCULAR HGB CONC 34.1 g/dL (31.0-37.0); MEAN CORPUSCULAR VOLUME 97.3 fL (81.0-99.0); MEAN PLATELET VOLUME 7.4 fl (7.4-10.4); PLATELET 335 x1000/uL (130-400); RED BLOOD CELL COUNT 1.98 mill/uL (4.2-5.4)
[2023-05-19] MEDS: IPRATROPIUM/ALBUTEROL 0.5-3(2.5)MG/3ML NEB HHN SCH ×2 (13:11→22:06)
[2023-05-19 13:17] LABS: CHLORIDE 107 mEq/L (98-107); INDEX HEMOLYSI 2 (1-3); INDEX ICTERIC 3 (1-4); INDEX LIPEMIC 1 (1-3); POTASSIUM 4.6 mEq/L (3.5-5.1); SODIUM 137 mEq/L (136-145)
[2023-05-19 13:19] LABS: CALCIUM 8.6 mg/dL (8.5-10.1); UREA NITROGEN BLOOD 27 mg/dL (7-21)
[2023-05-19 13:22] LABS: CARBON DIOXIDE 26 mEq/L (21-32); GLUCOSE 113 mg/dL (70-105); IRON 153 ug/dL (50-175); TOTAL IRON BINDING CAPACITY 176 ug/dL (250-450)
[2023-05-19 13:31] LABS: DIFFERENTIAL COMMENT 1; HEMATOCRIT. 19.3 % (36.0-48.0); HEMOGLOBIN. 6.6 g/dL (12.0-16.0)
[2023-05-19 14:14] LABS: ANISOCYTOSIS 2+; NUCLEATED RED BLOOD CELLS 43 /100 WBC; PLATELET ESTIMATE NORMAL
[2023-05-19 14:15] LABS: SICKLE CELLS 2+
[2023-05-19] MEDS ORDERED: PNEUMOCOCCAL 23-VAL P-SAC VAC 0.5 ML IM ONE (15:00)
[2023-05-19] MEDS: SACUBITRIL/VALSARTAN 24MG/26MG TABLET PO SCH (19:50)
[2023-05-19] MEDS: MORPHINE SULFATE 2 MG/ML CPJ (NOT FOR IM USE) IV PRN (21:21)
[2023-05-19 23:27] LABS: HEMATOCRIT 24.7 % (36.0-48.0); HEMOGLOBIN 8.5 g/dL (12.0-16.0)
[2023-05-20] VITALS (13 sets, daily range): BP systolic 100–150; BP diastolic 66–84; PULSE 64–116; RESP 16–22; TEMP 97.4–98.6; O2SAT 97–98
[2023-05-20 00:11] LABS: INR 1.2; PROTHROMBIN TIME 12.4 sec (9.6-11.0)
[2023-05-20] MEDS: MORPHINE SULFATE 30MG TABLET SR PO SCH ×3 (01:03→22:25)
[2023-05-20] MEDS: IPRATROPIUM/ALBUTEROL 0.5-3(2.5)MG/3ML NEB HHN SCH ×6 (02:11→20:42)
[2023-05-20] MEDS: MORPHINE SULFATE 2 MG/ML CPJ (NOT FOR IM USE) IV PRN ×3 (04:57→15:59)
[2023-05-20] MEDS: ACETAMINOPHEN 325MG TABLET PO PRN ×2 (06:36→22:25)
[2023-05-20] MEDS: APIXABAN 5 MG TABLET PO SCH ×2 (08:33→17:35)
[2023-05-20] MEDS: DOCUSATE SODIUM 250MG CAPSULE PO SCH (08:33)
[2023-05-20] MEDS: FUROSEMIDE 40MG TABLET PO SCH ×2 (08:33→21:54)
[2023-05-20] MEDS: SACUBITRIL/VALSARTAN 24MG/26MG TABLET PO SCH ×2 (08:33→17:47)
[2023-05-20] MEDS: METOPROLOL TARTRATE 50MG TABLET PO SCH ×2 (08:33→17:00)
[2023-05-20] MEDS: FOLIC ACID/VITAMIN B COMP W-C TABLET PO SCH (10:39)
[2023-05-20 11:25] LABS: HEMATOCRIT. 24.8 % (36.0-48.0); HEMOGLOBIN. 8.5 g/dL (12.0-16.0); MEAN CORPUSCULAR HEMOGLOBIN 32.7 pg (28.0-32.0); MEAN CORPUSCULAR HGB CONC 34.2 g/dL (31.0-37.0); MEAN CORPUSCULAR VOLUME 95.6 fL (81.0-99.0); MEAN PLATELET VOLUME 7.5 fl (7.4-10.4); PLATELET 343 x1000/uL (130-400); RED BLOOD CELL COUNT 2.59 mill/uL (4.2-5.4); RED CELL DISTRIBUTION WIDTH 28.3 % (11.6-14.6)
[2023-05-20 11:31] LABS: CALCIUM 8.2 mg/dL (8.5-10.1); CHLORIDE 107 mEq/L (98-107); INDEX HEMOLYSI 2 (1-3); INDEX ICTERIC 3 (1-4); INDEX LIPEMIC 1 (1-3); POTASSIUM 4.1 mEq/L (3.5-5.1); SODIUM 140 mEq/L (136-145)
[2023-05-20 11:33] LABS: DIFFERENTIAL COMMENT 1
[2023-05-20 11:38] LABS: CARBON DIOXIDE 31 mEq/L (21-32); CREATININE 0.9 mg/dL (0.6-1.3); GLUCOSE 95 mg/dL (70-105); INDEX HEMOLYSI 2 (1-3); UREA NITROGEN BLOOD 21 mg/dL (7-21)
[2023-05-20 12:05] LABS: FOLIC ACID (FOLATE) SERUM > 20.00 ng/mL (>5.38)
[2023-05-20 23:03] LABS: ANISOCYTOSIS 3+; NUCLEATED RED BLOOD CELLS 29 /100 WBC; PLATELET ESTIMATE NORMAL; SICKLE CELLS 2+
[2023-05-21] VITALS (10 sets, daily range): BP systolic 108–140; BP diastolic 62–77; PULSE 100–116; RESP 17–24; TEMP 96.5–97.8; O2SAT 96
[2023-05-21] MEDS: IPRATROPIUM/ALBUTEROL 0.5-3(2.5)MG/3ML NEB HHN SCH ×3 (00:36→09:00)
[2023-05-21] MEDS: MORPHINE SULFATE 2 MG/ML CPJ (NOT FOR IM USE) IV PRN (02:06)
[2023-05-21 05:48] LABS: HEMATOCRIT. 24.2 % (36.0-48.0); HEMOGLOBIN. 8.3 g/dL (12.0-16.0); MEAN CORPUSCULAR HEMOGLOBIN 33.3 pg (28.0-32.0); MEAN CORPUSCULAR HGB CONC 34.2 g/dL (31.0-37.0); MEAN CORPUSCULAR VOLUME 97.1 fL (81.0-99.0); MEAN PLATELET VOLUME 7.8 fl (7.4-10.4); PLATELET 311 x1000/uL (130-400); RED BLOOD CELL COUNT 2.49 mill/uL (4.2-5.4)
[2023-05-21 05:49] LABS: CHLORIDE 107 mEq/L (98-107); INDEX HEMOLYSI 3 (1-3); INDEX ICTERIC 3 (1-4); INDEX LIPEMIC 1 (1-3); POTASSIUM 4.3 mEq/L (3.5-5.1); SODIUM 137 mEq/L (136-145)
[2023-05-21 05:54] LABS: CALCIUM 7.8 mg/dL (8.5-10.1); CARBON DIOXIDE 29 mEq/L (21-32); CREATININE 0.8 mg/dL (0.6-1.3); GLUCOSE 97 mg/dL (70-105); UREA NITROGEN BLOOD 24 mg/dL (7-21)
[2023-05-21 06:18] LABS: DIFFERENTIAL COMMENT 1
[2023-05-21] MEDS: METOPROLOL TARTRATE 50MG TABLET PO SCH (09:00)
[2023-05-21] MEDS: SACUBITRIL/VALSARTAN 24MG/26MG TABLET PO SCH (09:05)
[2023-05-21] MEDS: APIXABAN 5 MG TABLET PO SCH (09:06)
[2023-05-21] MEDS: MORPHINE SULFATE 30MG TABLET SR PO SCH (09:06)
[2023-05-21] MEDS: FOLIC ACID/VITAMIN B COMP W-C TABLET PO SCH (09:06)
[2023-05-21] MEDS: DOCUSATE SODIUM 250MG CAPSULE PO SCH (09:06)
[2023-05-21] MEDS: FUROSEMIDE 40MG TABLET PO SCH (09:07)
[2023-05-21 18:24] LABS: ANISOCYTOSIS 2+; NUCLEATED RED BLOOD CELLS 18 /100 WBC; PLATELET ESTIMATE NORMAL; SICKLE CELLS 2+
== END 2023-05-21 13:32 | disposition home or self-care (01) | DRG 291 ==
LOC: ER 16:40 → MICUSO 22:50 → 8WST 05-19 04:28
PROVIDERS: ADMIT Internal Medicine Geriatric Medicine; ATTEND Internal Medicine Geriatric Medicine
PROC: 02HV33Z Insertion of Infusion Device into Superior Vena Cava, Percutaneous Approach (ICD-10-PCS; principal; 2023-05-19)
PROC: B548ZZA Ultrasonography of Superior Vena Cava, Guidance (ICD-10-PCS; 2023-05-19)
PROC: 30233N1 Transfusion of Nonautologous Red Blood Cells into Peripheral Vein, Percutaneous Approach (ICD-10-PCS; 2023-05-19)
DX: I11.0 Hypertensive heart disease with heart failure (principal); D57.00 Hb-SS disease with crisis, unspecified; I50.23 Acute on chronic systolic (congestive) heart failure; N17.9 Acute kidney failure, unspecified; I48.20 Chronic atrial fibrillation, unspecified; Z96.649 Presence of unspecified artificial hip joint; E78.00 Pure hypercholesterolemia, unspecified; R74.01 Elevation of levels of liver transaminase levels; G90.9 Disorder of the autonomic nervous system, unspecified; I25.10 Atherosclerotic heart disease of native coronary artery without angina pectoris; Z86.73 Personal history of transient ischemic attack (TIA), and cerebral infarction without residual deficits; Z79.01 Long term (current) use of anticoagulants; Z79.899 Other long term (current) drug therapy
CPT/HCPCS: 36415; 36573; 71045; 80048; 80053; 82746; 83540; 83550; 83605; 83880; 84484; 85014; 85018; 85025; 85044; 85049; 85384; 86850; 86870; 86900; 86920; 87070; 87077; 87186; 90732; 93005; 93923; 94640; 97162; 99291; C1725; C1769; C1893; J1885; J2270; J3490; P9016